=== PATIENT | female | born 2000 | race Caucasian/White ===

== ENCOUNTER 2024-04-27 12:17 | Emergency (ER) | payer MEDICAID, SELFPAY ==
[2024-04-27 12:26] VITALS: BP 130/75; PULSE 91; RESP 16; TEMP 36.3; O2SAT 99; BMI 25.0
--- NOTE | 2024-04-27 12:40 | ED_ITS ---
HPI - General Adult General Chief complaint: OB Stated complaint: 34 wks preg, fall abd pain Time Seen by Provider: 04/27/24 12:33 Source: patient Mode of arrival: ambulatory Limitations: no limitations History of Present Illness ED Provider: Kip Jane HPI narrative: 23-year-old female presents to ED for abdominal pain. Patient states 20 minutes ago she was trying to get into the car and she slipped and she fell onto her left hip left lower belly ever since has had pain. Patient denies any vaginal bleeding or vaginal discharge. Patient is usually [facility] at [facility]. Related Data Allergies Allergy/AdvReac Type Severity Reaction Status Date / Time shellfish derived Allergy Unknown THROAT Verified 04/27/24 12:28 [SHELLFISH DERIVED] CLOSES shell fish Allergy Unknown swelling Uncoded 03/29/16 00:00 of the face Review of Systems Review of Systems: Left lower abdominal hip pain Yes all other systems are reviewed and are negative PMFSH Social History Social History Advance Directives: No Advance Directives Information Provided: Yes Do you have a plan to hurt others: No Plan Physical Exam ED Vital Signs: Vital Signs - 24 hr 04/27/24 12:26 Temperature 97.3 F Pulse Rate 91 Respiratory Rate 16 Blood Pressure 130/75 Pulse Oximetry 99 Oxygen Delivery Method Room Air BMI result Body Mass Index 25.0 Const General: cooperative, healthy appearing, comfortable, no acute distress, well developed, alert and awake Orientation/consciousness: patient oriented x3 HENMT Head: Yes normal to inspection, Yes No palpable skull fracture present, Yes normocephalic and Yes atraumatic Eyes General: appearance normal, both eyes and all related structures Neck Neck: Yes normal visual inspection, Yes full ROM, Yes no lymphadenopathy, Yes no meningeal signs, Yes trachea midline, Yes supple, No anterior neck swelling and No tender Chest Chest palpation & inspection: normal inspection of the chest and normal palpation of entire chest wall Resp Effort & Inspection: normal respiratory effort and able to speak in complete sentences Auscultation: clear to auscultation bilaterally Cardio Jugular venous distension: no JVD Heart sounds: S1 normal heart sound present and S2 normal heart sound present GI Inspection: Yes normal to inspection Palpation (GI): Soft to palpation, not firm, Tenderness to palpation present (GI) in the LLQ and suprapubicly, no guarding and not rigid General: Yes no CVA tenderness Back/Spine/Pelvis Back: no CVA tenderness and No back tenderness Skin General skin exam: no rashes or lesions noted, elasticity normal and turgor normal Neuro General: patient oriented x3, gait normal, tone normal, moves all extremities, Normal light touch and pain sensation, no meningeal signs, no focal motor deficits, CN's II-XI intact bilaterally and normal sensation to monofilament Extrem General: Yes normal to inspection, Yes full ROM and Yes capillary refill normal Psych Appearance: grossly normal, well kempt and not disheveled Medical Decision Making Medical Decision Making MDM Narrative: It was discussed with patient that will have to call [facility] transfer Line to speak OBGYN be Y and provider so patient could be transferred at [facility] for evaluation of her and the fetus for monitoring. Patient agreeable with plan. Patient denies any vaginal bleeding. FHR 155 1:04pm: While I was about to call [facility] transfer line to transfer patient after speaking with Dr. Ariaza patient was seen walking out the ED toward the exit door. Patient was informed for her to remain so I can called [facility] and informed them of her case for transfer. patient states no, and she will leave on her own accord and go to [facility] by herself. Patient has left before any AMA paper could be filed. Patient was made aware of premature , , demise, and she still walked out the ED. Differential Diagnosis Differential Diagnoses: The differential diagnosis associated with the presentation includes (Threatened , demise, premature contraction) Admission/Observation Consideration of admission/observation: Escalation of care including admission/observation considered Consult Healthcare Provider Management of the patient was discussed with: Construction Skills Teacher (Dr. Araiza) Independent Historian Clinical information obtained from an independent historian. History obtained from or confirmed by: Other (Patient) Discharge Plan Discharge Clinical Impression: Abdominal pain, Fall Patient Disposition: Left W/O Completing Treatment Discharge Date/Time: 04/27/24 13:10
--- NOTE | 2024-04-27 13:07 | PC.NURSE ---
patient states she has waited too long and isn't waiting anymore. patient ambulates out with friend/family without completing treatment
--- NOTE | 2024-04-27 13:18 | PM.OBCN ---
OB Consult Note - [facility] Data Service Date: 04/27/24 Primary Care Provider: [facility] Narrative I was consulted on Lillian Jones at 1:00pm is a 23 year old female presents to ED for abdominal pain. Patient states 20 minutes ago she was trying to get into the car and she slipped and she fell onto her left hip left lower belly ever since has had pain. Patient denies any vaginal bleeding or vaginal discharge. OB PMF Social History Social History Advance Directives: No Advance Directives Information Provided: Yes Do you have a plan to hurt others: No Plan Meds Allergies Allergy/AdvReac Type Severity Reaction Status Date / Time shellfish derived Allergy Unknown THROAT Verified 04/27/24 12:28 [SHELLFISH DERIVED] CLOSES shell fish Allergy Unknown swelling Uncoded 03/29/16 00:00 of the face OB Physical Exam Physical Exam Additional Comments: Exam reported by by AYAAN Castaneda Abdominal exam within normal heart rate = 153 beats per minute OB - CN: A/P Assessment and Plan (1) Abdominal pain: Status: Acute Assessment and Plan: Recommended to AYAAN Ayers the following: Transfer BRANDI to [facility] for evaluation and for prolonged monitoring including FHR. I spent a total of 20 minutes reviewing the chart, communicating with the emergency room provider and documenting in the medical record. Time Spent With Patient Time: Total time managing care of this patient today ____ minutes.
--- OUTSIDE RECORDS SUMMARY | 2024-04-27 14:24 | XMS_ITS | Encounter Summary ---
Author Organization [employer] Address [address] 7[address] [place] [address] Care Team Providers Care Engineering Administrator Name Role Phone Unavailable Primary Care Provider Unavailabl e Encounter Details Date Type Department Care Team ([facility] st Contact Info) Description 03/30/2024 Patient Outreach [facility] MEDICINE [address] [place] [address] Dyan Mays, JOAO Social History Tobacco Use Types Packs/Day Years Used Date Smoking Tobacco: Never Smokeless Tobacco: Never Housing Stability Answer Date Recorded What is your housing situation today? I have breezy patterson 03/13/[address] you li ve. Do you have problems with any of the following? None of the above 03/13/2024 Food Insecurity Answer Date Recorded Within the past 12 months, y ou worried that your food would run out before you got money to buy more: Never True 03/13/2024 Within the past 12 months,th e food you bought just didn't last and you didn't have enough money to get more: Never True Transportation Answer Date Recorded In the past 12 months, has l ack of transportation kept you from medical appts, meetings, work or from getting things needed for daily living? No 03/13/2024 Utilities Answer Date Recorded In the past 12 months, has t he electric, gas, oil or water company threatened to shut off services in your home? No 03/13/2024 Internet Access Answer Date Recorded Internet Access Q1 Yes 03/13/2024 Internet Access Q2 Not on file 03/13/2024 Comments Yes Sex and Gender Information Value Date Recorded Sex Assigned at Female 02/20/2022 2:49 PM EST Legal Sex Female 2:48 PM EST Gender Identity Female 02/20/2022 2:49 PM EST Sexual Orientation Choose not to disclose 2022 6:47 PM EST documented as of this encounter Plan of Treatment Upcoming Encounters Date Type Department Care Team (Late st Contact Info) Description 05/20/2024 9:00 AM EST Office Visit [facility] MEDICINE [address] [place] [address] Meena White DO [address] [place], [place] [phone] documented as of this encounter Visit Diagnoses Not on filedocumented in this encounter Care Teams Engineering Administrator Relationship Specialty Start Date End Date Dyan Mays Telegraph Printer Mechanic 03/23/24 documented as of this encounter
--- OUTSIDE RECORDS SUMMARY | 2024-04-27 14:24 | XMS_ITS | Encounter Summary ---
Author Organization [employer] Address [address]t [place] [address] Care Team Providers Care Dock Supervisor Name Role Phone Unavailable Primary Care Provider Unavailabl e Reason for Visit * Reason Comments Care Coordination LETICIA/SOLE Finley- Follow up call Encounter Details Date Type Department Care Team (Latest Contact Info) Description 03/30/2024 Patient Outreach [facility] MEDICINE [address] [place] [address] Dyan Mays RN Care Coordination (LETICIA/SOLE Asencio- Follow up call) Social History Tobacco Use Types Packs/Day Years Used Date Smoking Tobacco: Never Smokeless Tobacco: Never Housing Stability Answer Date Recorded What is your housing situation today? I have breezy leonardo 03/13/[address] you li [...] PM EST documented as of this encounter Progress Notes * Susannoe George - 03/30/2024 11:31 AM EST CHW Marilee Vazquez, placed outbound call to patient for follow up call. Patient's name, and address confirmed. CHW followed up on SDOH needs. Per patient, no SDOH needs, however would like to assistance getting connected to [place], and [place] for [place], and SNAP benefits. CHW provided patient with [facility] contact number to schedule appt, as well as educated pt where to apply for DTA online as well as informed patient documents that will be requested at time of application. No further questions or concerns. CHW reinforced direct contact information for any additional questions or concerns and extended clinic hours on Mondays and Wednesdays, and Walk-In Urgent Care Located in [place] of [facility]. Patient provided with after-hours line for [facility], , which offer night time triage service and option to transfer to cash application representative provider if needed. Patient verbalizes understanding, and able to repeat back to editorial writer. A follow up call will be placed within 10 days, patient agrees with plan. documented in this encounter Plan of Treatment Upcoming Encounters Date Type Department Care Team (Late st Contact Info) Description 05/20/2024 9:00 AM EST Office Visit [facility] MEDICINE [address] [place], [place] [phone] Meena White DO [address] [place], [place] [phone] documented as of this encounter Visit Diagnoses Not on filedocumented in this encounter Care Teams Dock Supervisor Relationship Specialty Start Date End Date Dyan Mays Dog Show Judge 03/23/24 documented as of this encounter
--- OUTSIDE RECORDS SUMMARY | 2024-04-27 14:24 | XMS_ITS | Encounter Summary ---
Author Organization [employer] Address [address] 7t [place] [address] Care Team Providers Care Filling Station Laborer Name Role Phone Unavailable Primary Care Provider Unavailabl e Reason for Visit * Reason Onset Date Comments New patient appt. 03/31/2024 Encounter Details Date Type Department Care Team ([facility] st Contact Info) Description 03/31/2024 Telephone [facility] MEDICINE [address] [place] [address] Jose A Pritchard MD [address] [place] [address] New patient appt. Social History Tobacco Use Types Packs/Day Years [...] PM EST documented as of this encounter Miscellaneous Notes * Telephone Encounter - Melva Reddy - 03/31/2024 12:05 PM EST Outgoing call to pt to book TECHNOLOGY SPECIALIST appt. Patient booked for 05/20/[address] White. No medical conditions reported. Appt reminder sent via text and mail. documented in this encounter Plan of Treatment Upcoming Encounters Date Type Department Care Team (Late st Contact Info) Description 05/20/2024 9:00 AM EST Office Visit [facility] MEDICINE [address] [place] [address] Meena White DO [address] [place] [address] documented as of this encounter Visit Diagnoses Not on filedocumented in this encounter Care Teams Filling Station Laborer Relationship Specialty Start Date End Date Dyan Mays Hydrologic Engineer 03/23/24 documented as of this encounter
--- OUTSIDE RECORDS SUMMARY | 2024-04-27 14:24 | XMS_ITS | Encounter Summary ---
Author Organization [employer] Address [address] 7[address] [place] [address] Care Team Providers Care Inspector Hairspring Name Role Phone Unavailable Primary Care Provider Unavailabl e Encounter Details Date Type Department Care Team ([facility] st Contact Info) Description 03/30/2024 Telephone [facility] MEDICINE [address] [place] [address] Dyan Mays, JOAO Social History Tobacco Use Types Packs/Day Years Used Date Smoking Tobacco: Never Smokeless Tobacco: Never Housing Stability Answer Date Recorded What is your housing situation today? I have breezyemre patterson 03/13/[address] you [...] encounter Miscellaneous Notes * Telephone Encounter - Dyan Mays - 03/30/2024 11:26 AM EST NANCY Mays RN placed outbound call to patient. Patient's name, and address confirmed.Patient states is doing well with no recent illnesses or emergency room visits. Patient is currently 30 weeks gestation and is doing well. Her last OB appointment went well and baby is good and her GTT was within normal limits. CM educated patient that she qualifies for breastpump through [employer] and that she needs to request the prescription at her next OB appointment on 04/08/24, patient agrees with plan. CM educated patient on emissions technician services covered by [employer]. Patient states that she is interested in possibly speaking to a emissions technician to see if she would like to use on for labor. CM emailed emissions technician information to her email [email or web address] patient states that she does not have any supplies for baby and that includes a car seat and a crib, CHW Marilee Vazquez spoke with patient regarding resources. Patient does not have WIC and Marilee provided the phone number and she is going to call today. No further questions or concerns. CM reinforced direct contact information or CHW for any additional questions or concerns. Education provided on Walk-In Urgent Care located in [facility] of [facility]. Patient provided with after-hours line for [facility], , which offer night time triage service and option to transfer to moving consultant provider if needed. Patient verbalizes understanding, and able to repeat back to board writer. A follow up call will be placed within 10 days, patientagrees with plan. documented in this encounter Plan of Treatment Upcoming Encounters Date Type Department Care Team (Late st Contact Info) Description 05/20/2024 9:00 AM EST Office Visit [facility] MEDICINE [address] [place] [address] Meena White, [address] [place] [address] documented as of this encounter Visit Diagnoses Not on filedocumented in this encounter Care Teams Inspector Hairspring Relationship Specialty Start Date End Date Dyan Mays Lyric Writer 03/23/24 documented as of this encounter
--- OUTSIDE RECORDS SUMMARY | 2024-04-27 14:24 | XMS_ITS | Clinical Summary ---
Author Organization [employer] Address [address] 7t [place] [address] Care Team Providers Care Solution Strategist Name Role Phone Unavailable Primary Care Provider Unavailabl e Allergies Active Allergy Reactions Criticality Noted Date Comments Shellfish-Derived Products Anaphylaxis High 04/26/2022 Pt does not have an epi pen at moment. Medications multivitamin () 27-0.8 MG tablet Take 1 tablet by mouth Once per day. 90 tablet 3 10/14/2023 Active Encounters Date Type Department Care Team Description 04/15/2024 Patient Outreach [facility] MEDICINE [address] [place] [phone] Dyan Mays, JOAO Care Coordination ([facility]/SOLE Asencio#1- Follow up call-[facility]) 03/31/[address] [address] Jose A Pritchard MD New patient appt. 03/30/2024 Patient Outreach [facility] MEDICINE [address] [place] [phone] Dyan Mays RN 03/30/2024 Patient Outreach [address] [address] Dyan Mays, JOAO Care Coordination (Nelly/SOLE Asencio- Follow up call) 03/30/[address] [address] Dyan Mays, JOAO 03/23/[address] [address] Dyan Mays, JOAO Care Management (C3 initial assessment/enrollment) 03/20/2024 Patient Outreach [address] [address] Dyan Mays RN Care Coordination (C3/SOLE Asencio- CM Initial Assessment Appt Reminder) 03/16/[address] [address] Jose A Pritchard MD 03/13/2024 Patient Outreach [address] [address] Dyan Mays RN Care Coordination (Nelly/SOLE Asencio- ADT- Outreach call) 03/13/[address] [address] Dyan Mays RN Care Management ([facility] chart review) from Last 3 Months Social History Tobacco Use Types Packs/Day Years Used Date Smoking Tobacco: Never Smokeless Tobacco: Never Tobacco Cessation:Counseling Given: Not Answered Housing Stability Answer Date Recorded What is [...] not to disclose 2022 6:47 PM EST Last Filed Vital Signs Vital Sign Reading Time Taken Comments Blood Pressure 123/77 10/14/2023 2:56 PM EDT Pulse 67 10/14/2023 2:56 PM EDT Temperature 36.7 ??C (98.1 ??F) 10/14/2023 2:56 PM ED T Respiratory Rate 17 10/14/2023 2:56 PM EDT Oxygen Saturation 100% 10/14/2023 2:56 PM EDT Inhaled Oxygen Concentration - - Weight 64.7 kg (142 lb 9.6 oz) 10/14/2023 2:56 P M EDT Height - - Body Mass Index - - Plan of Treatment Upcoming Encounters Date Type Department Care Team (Late st Contact Info) Description 05/20/2024 9:00 AM EST Office Visit [facility] MEDICINE [address] [place], [place] [phone] Meena White, DO [address] [place], [place] [phone] Health Maintenance Due Date Last Done Comments Depression Screening 1998 HIV Screening 1998 Hepatitis B Vaccines (2 of 3 - 3-dose series) 1998 1998 Alcohol/Substance Use Screening 2010 Family Planning (PISQ) 2013 HPV Vaccines (1 - 3-dose series) 2013 Hepatitis C Screening 2016 DTaP/Tdap/Td Vaccines (1 - Tdap) 2017 Pap Smear 06/03/2019 COVID-19 Vaccine ( - 2023-2 5 season) 2023 Influenza Vaccine (#1) 2023 Tobacco Screening 10/13/2024 10/14/2023 SDOH Screening 03/13/2025 03/13/2024 Zoster Vaccines (1 of 2) 2048 RSV Patients and Pa tients Aged 60 years or older (1 - 1-dose 75+ series) 2073 HIB Vaccines Aged Out No longer eligi ble based on patient's age to complete this topic Hepatitis A Vaccines Aged Out No long er eligible based on patient's age to complete this topic IPV Vaccines Aged Out No longer eligi ble based on patient's age to complete this topic Meningococcal Vaccine Aged Out No luis eduardo reji eligible based on patient's age to complete this topic Pneumococcal Vaccine: Pediat rics (0 to 5 Years) and At-Risk Patients (6 to 49) Years) Aged Out No longer elig ible based on patient's age to complete this topic RSV under 20 months Aged Out No longe r eligible based on patient's age to complete this topic Rotavirus Vaccines Aged Out No longer eligible based on patient's age to complete this topic [facility] Subscriber Plan / Payer (Ef fective 2022-Present) Name:Lillian Jones Relation to Subscriber:Self Name:Lillian Jones Payer ID:Not on file Group ID:Not on file Type:Medicaid Address: [address] [facility] Member Subscriber Plan / Payer (Ef fective 2023-Present) Name:Lillian Jones Relation to Subscriber:Self Name:Lillian Jones Payer ID:Not on file Group ID:Not on file Type:Medicaid Address: [address] Care Teams Solution Strategist Relationship Specialty Start Date End Date Dyan Mays Smelter Charger 03/23/24
--- OUTSIDE RECORDS SUMMARY | 2024-04-27 14:24 | XMS_ITS | Encounter Summary ---
Author Organization [employer] Address [address] 7t [place] [address] Care Team Providers Care Demurrage Worker Name Role Phone Unavailable Primary Care Provider Unavailabl e Reason for Visit * Reason Comments Care Coordination C3CM/SOLE Finley#1- Follow up call-LVM Encounter Details Date Type Department Care Team (Latest Contact Info) Description 04/15/2024 Patient Outreach [facility] MEDICINE [address] [place] [address] Dyan Mays RN Care Coordination (C3CM/SOLE Asencio#1- Follow up call-LVM) Social History Tobacco Use Types Packs/Day Years [...] as of this encounter Progress Notes * Marilee Vazquez - 04/15/2024 10:22 AM EST CHW Marilee Vazquez, placed outbound call to patient for follow up call. No answer at this time. LVM introducing self from [facility] CM Department. Requested call back. CHW reinforced direct contact information or for any additional questions or concernsand extended clinic hours on Mondays and Wednesdays, and Walk-In Urgent Care Located in [facility] of [facility]. Patient provided with after-hours line for [facility], , which offer night time triage service and option to transfer to colorectal surgeon provider if needed. CHW will attempt another follow up call within 10 days. documented in this encounter Plan of Treatment Upcoming Encounters Date Type Department Care Team (Late st Contact Info) Description 05/20/2024 9:00 AM EST Office Visit [facility] MEDICINE [address] [place], [place] [phone] Meena White DO [address] [place], [place] [phone] documented as of this encounter Visit Diagnoses Not on filedocumented in this encounter Care Teams Demurrage Worker Relationship Specialty Start Date End Date Dyan Mays Chief Psychologist 03/23/24 documented as of this encounter
--- OUTSIDE RECORDS SUMMARY | 2024-04-27 14:25 | XMS_ITS | Encounter Summary ---
Author Organization [facility] Address [address] [place] [address] Care Team Providers Care Chauffeur Airport Limousine Name Role Phone Physician, No Pcp Primary Care Provider Unavaila ble Encounter Details Date Type Department Care Team (Late Contact Info) Description 04/14/2024 Telephone Obstetrics and Gynecology - [address] [phone] Margaux Lee MA Social History Tobacco Use Types Packs/Day Years Used Date Smoking Tobacco: Never Smokeless Tobacco: Never Alcohol Use Standard Drinks/Week Comments Not Currently 0 (1 standard drink = 0.6 oz pur e alcohol) Estimated Date of Delivery Comme nts Yes 06/04/2024 Based on Ultraso und Sex and Gender Information Value Date Recorded Sex Assigned at Not on file Gender Identity Not on file Sexual Orientation Not on file Job Start Date Occupation Industry Not on file Not on file Not on file documented as of this encounter Progress Notes * Margaux Lee MA - 04/14/2024 11:02 AM EST FMLA form completed and place on Clint Martinez CNM in basket for signature. Margaux Lee MA documented in this encounter Plan of Treatment Upcoming Encounters Date Type Department Care Team (Late Contact Info) Description 05/01/2024 2:45 PM EST Routine Obstetrics and Gynecology - [address] [phone] Radhika Oliva CNM [address] [place] [address] 05/06/2024 3:15 PM EST Routine Obstetrics and Gynecology - [place] [address] [place] [phone] Donte Morris CNM [address] [place] [address] documented as of this encounter Visit Diagnoses Not on filedocumented in this encounter Care Teams Chauffeur Airport Limousine Relationship Specialty Start Date End Date Physician, No Pcp PCP - General 02/26/24 documented as of this encounter
--- OUTSIDE RECORDS SUMMARY | 2024-04-27 14:25 | XMS_ITS | Data Portability ---
Author Organization AYAAN Gray s, [address] Address [address] [place] [address] Assessment No assessment recorded. Plan of Treatment Reminders Order Date Submit Date Provider Last Modified By Organization Details Last Modified Time Details Appointments None recorded. Lab herpes simplex, culture, unspecified specimen 2022 023 [employer] [facility], [address] [place] [address], [address], 3 14:06:32 urinalysis, dipstick 2022 023 [email or web address] 20995[facility], [address] [place] [address], [id number], 3 12:21:59 test, urine 20[id number] [place] [address], [address] [place] [address], [id number], 3 12:21:59 culture, urine 2022 023 DEDRICK [facility]), [address] [place] [address], [address], 3 06:07:30 vaginal pathogens panel, CARLIE+probe, vaginal fluid 2022 023 [employer] [facility]), [address] [place] [address], [address], 3 06:07:29 Referral None recorded. Procedures None recorded. Surgeries None recorded. Imaging None recorded. Medication Orders Valtrex 1 gram tablet 2022 023 [facility] #[id number], [address] [place], [address], 12:22:01 Macrobid 100 mg capsule 2022 023 [facility] #[id number], [address] [place], [address], 12:22:01 Patient TargetsNo targets recorded. Patient Instructions Encounter Date Encounter Id Patient Instructions Last Modified By Organization Details Last Modified Time 07/22/2022 [id number] We recommend you get a repeat urinalysis in 2 weeks to ensure that any abnormalities have resolved. If urine abnormalities persist, you will likely need further testing or treatment. We will contact you within 3 to 5 days with the results of your lab test. If you have not heard back from us within that time frame, please feel free to contact our office regarding your results. Go to the Emergency Department immediately if your symptoms worsen or if you develop new symptoms that concern you. Drink plenty of fluids You should follow-up with your PCP in 4-5 days, or at any time if your condition does not improve or worsens. Any acute change should prompt a visit to the nearest Emergency Department. Not available 07/22/2022 12:22:41 What is herpes?Herpes is a disease that can cause blisters and open sores on the genital area. Herpes is caused by a virus that is passed from person to person during vaginal, oral, or anal sex. Sometimes, people do not know they have herpes because they do not have any symptoms.?? Herpes cannot be cured. But the disease usually causes most problems during the first few years. After that, the virus is still there, but it causes few to no symptoms. Even when the virus is active, people with herpes can take medicines to reduce and help prevent symptoms.?? What are the symptoms of herpes?Some people with herpes never have any symptoms. But other people can develop symptoms within a few weeks of being infected with the herpes virus.?? Symptoms usually include blisters in the genital area. In women, this area includes the vagina, butt, anus, or thighs. In men, this area includes the penis, scrotum, anus, butt, or thighs. The blisters can become painful open sores which then crust over as they heal.?? Sometimes, people can have other symptoms that include:?? ? Blisters on the mouth or lips?? ? Fever, headache, or pain in the joints?? ? Trouble urinating?? In people with herpes, symptoms usually go away and come back. A return of symptoms is called an outbreak. Outbreaks usually include blisters and open sores in the genital area. In most people, the first outbreak is the worst and can last as long as 2 to 3 weeks. Outbreaks that happen later are usually not as severe and do not last as long.?? Outbreaks might occur every month or more often, or just once or twice a year. Sometimes, people can tell when an outbreak will occur, because they feel itching or pain beforehand. Sometimes they do not know that an outbreak is coming because they have no symptoms. Whatever your pattern is, keep in mind that herpes outbreaks usually become less frequent over time as you get older.?? Certain things, called triggers, can make outbreaks more likely to occur. These include stress, sunlight, menstrual periods, or getting sick.?? Not available 07/22/2022 12:22:28 Reason for Referral None Reported. Results Created Date Observation Date Name Description Value Unit Range Abnormal Flag Note LastModifiedBy Organization Detail LastModifiedTime 07/23/1907/23/2022 NUA B VAGIN ITIS PLUS (VG+) atopobium vaginae HIGH - 2 score abnormal Not Available [facility] ([facility]) [address] [place], [address], 07/24/2022 06:07:29 07/23/1907/23/2022 NUSWA B VAGIN ITIS PLUS (VG+) bvab 2 HIGH - 2 score abnormal Not Available [facility] ([facility]) [address], [place], [place], [address], 07/24/2022 06:07:29 07/23/1907/23/2022 NUSWA B VAGIN ITIS PLUS (VG+) megasphaera 1 HIGH - 2 score abnormal Calcu late total score by patrick novak the 3 indiv idual bacte rial vagin osis (BV) marke r score s toget her. Total score is inter prete d as follo ws: Total score 0-1: Indic ates the absen ce of BV. Total score 2: Indet ermin ate for BV. Addit ional clini ingris data shoul d be evalu ated to estab jazzmine a diagn osis. Total score 3-6: Indic ates the prese nce of BV. This test was devel oped and its perfo rmanc e sandee cteri stics deter mined by [facility]. It has not been clear ed or appro katie by the Food and Drug Admin istra tion. Not Available [facility] ([facility]) [address] [place], [address], 07/24/2022 06:07:29 07/23/19 23 07/23/2022 NUSWA B VAGIN ITIS PLUS (VG+) attila albicans, CARLIE NEGATI VE negati ve Not Available [facility] ([facility]) [address] [place], [address], 07/24/2022 06:07:29 07/23/19 23 07/23/2022 NUSWA B VAGIN ITIS PLUS (VG+) attila glabrata, CARLIE NEGATI VE negati ve Not Available [facility] ([facility]) [address] [place], [address], 07/24/2022 06:07:29 07/23/19 23 07/24/2022 NUSWA B VAGIN ITIS PLUS (VG+) trich vag by CARLIE NEGATI VE negati ve Not Available [facility] ([facility]) [address] [place], [address], 07/24/2022 06:07:29 07/23/19 23 07/24/2022 NUSWA B VAGIN ITIS PLUS (VG+) chlamydia trachomatis, CARLIE NEGATI VE negati ve Not Available [facility] ([facility]) [address], [place], [place], [address], 07/24/2022 06:07:29 07/23/19 23 07/24/2022 NUSWA B VAGIN ITIS PLUS (VG+) neisseria gonorrhoeae, CARLIE NEGATI VE negati ve Not Available [facility] ([facility]) [address], [place], [place], [address], 07/24/2022 06:07:29 07/23/19 23 07/24/2022 URINE CULTU RE, ROUTI NE urine culture, routine FINAL REPORT Not Available [facility] ([facility]) [address], [place], [place], [address], 07/24/2022 06:07:30 07/23/19 23 07/24/2022 URINE CULTU RE, ROUTI NE result 1 NO GROWTH Not Available [facility] ([facility]) [address], [place], [place], [address], 07/24/2022 06:07:30 07/23/19 23 07/25/2022 HSV CULTU RE AND TYPIN G hsv culture/type COMMEN T abnormal Posit fátima for Herpe s simpl ex virus type- 2. Typin g was confi rmed by monoc lonal antib elsiha micro scopi c immun ofluo resce nce. Not Available [facility] ([facility]) [address], [place], [place], [address], 07/25/2022 14:06:32 07/23/19 23 07/22/2022 pregn analilia test, urine Unknown Analyte Normal = Negati ve Not Available chano [address], [address], 07/22/2022 11:48:35 07/23/19 23 07/22/2022 pregn analilia test, urine Unknown Analyte negati ve Not Available chico pe [address], [place], [address], 07/22/2022 11:48:35 07/23/19 23 07/22/2022 urina lysis , dipst ick Unknown Analyte Normal = light yellow Not Available [address]chano hale [address], [place], [address], 07/22/2022 11:48:29 07/23/19 23 07/22/2022 urina lysis , dipst ick Unknown Analyte Yellow Not Available [address] [place], [place] [address]abram [address], [place], [address], 07/22/2022 11:48:29 07/23/19 23 07/22/2022 urina lysis , dipst ick Unknown Analyte Normal = clear Not Available chano hale [address], [place], [address], 07/22/2022 11:48:29 07/23/19 23 07/22/2022 urina lysis , dipst ick Unknown Analyte Slight ly Cloudy Not Available [address]chan[address] hale [address], [place], [address], 07/22/2022 11:48:29 07/23/19 23 07/22/2022 urina lysis , dipst ick Unknown Analyte Normal = negati ve Not Available chano hale [address], [place], [address], 07/22/2022 11:48:29 07/23/19 23 07/22/2022 urina lysis , dipst ick Unknown Analyte Normal = Negati ve Not Available [address]chan[address] h[address], [place], [address], 07/22/2022 11:48:29 07/23/19 23 07/22/2022 urina lysis , dipst ick Unknown Analyte Normal = Negati ve Not Available chano hale [address], [place], [address], 07/22/2022 11:48:29 07/23/19 23 07/22/2022 urina lysis , dipst ick Unknown Analyte Negati ve Not Available chano hale [address], [place], [address], 07/22/2022 11:48:29 07/23/19 23 07/22/2022 urina lysis , dipst ick Unknown Analyte Negati ve Not Available chano hale [address], [place], [address], 07/22/2022 11:48:29 07/23/19 23 07/22/2022 urina lysis , dipst ick Unknown Analyte Negati ve Not Available chano hale [address], [place], [address], 07/22/2022 11:48:29 07/23/1907/22/2022 urina lysis , dipst ick Unknown Analyte Normal = 1.010, 1.015, 1.020 Not Available chano hlae [address], [place], [address], 07/22/2022 11:48:29 07/23/19 23 07/22/2022 urina lysis , dipst ick Unknown Analyte 1.025 Not Available [address], [place], [address], 07/22/2022 11:48:29 07/23/19 23 07/22/2022 urina lysis , dipst ick Unknown Analyte Normal = Negati ve Not Available chano hale [address], [place], [address], 07/22/2022 11:48:29 07/23/19 23 07/22/2022 urina lysis , dipst ick Unknown Analyte Small Not Available mary [address], [place], [address], 07/22/2022 11:48:29 07/23/19 23 07/22/2022 urina lysis , dipst ick Unknown Analyte Normal = 6.5, 7.0, 7.5, 8.0 Not Available chano [address], [place], [address], 07/22/2022 11:48:29 07/23/1907/22/2022 urina lysis , dipst ick Unknown Analyte 6.0 Not Available [address], [place], [address], 07/22/2022 11:48:29 07/23/19 23 07/22/2022 urina lysis , dipst ick Unknown Analyte Normal = Negati ve Not Available chano [address], [place], [address], 07/22/2022 11:48:29 07/23/19 23 07/22/2022 urina lysis , dipst ick Unknown Analyte Negati ve Not Available chano [address], [place], [address], 07/22/2022 11:48:29 07/23/19 23 07/22/2022 urina lysis , dipst ick Unknown Analyte Normal = 0.2, 1.0 Not Available chano [address], [place], [address], 07/22/2022 11:48:29 07/23/19 23 07/22/2022 urina lysis , dipst ick Unknown Analyte 0.2 E.U./d L Not Available chano hale [address], [place], [address], 07/22/2022 11:48:29 07/23/19 23 07/22/2022 urina lysis , dipst ick Unknown Analyte Normal = Negati ve Not Available 2099chano hale [address], [place], [address], 07/22/2022 11:48:29 07/23/19 23 07/22/2022 urina lysis , dipst ick Unknown Analyte Negati ve Not Available [address]chano [address], [place], [address], 07/22/2022 11:48:29 07/23/19 23 07/22/2022 urina lysis , dipst ick Unknown Analyte Normal = Negati ve Not Available [address] [place] [address], [place], [address], 07/22/2022 11:48:29 07/23/19 23 07/22/2022 urina lysis , dipst ick Unknown Analyte Small Not Available [address] [place] [address], [place], [address], 07/22/2022 11:48:29 Result Notes None recorded. Problems Name Problem SNOMED Code Status Onset Date Resolution Date Notes Provider Name and Address Organization Details Recorded Time Heart murmur 25197047 Active 023 AYAAN Holbrook - [facility] 07/22/2022 11:50:21 Problem Notes None recorded. Medical Equipment None Reported. Allergies No known drug allergies Medications Name Sig Start Date Stop Date Status Note LastModified by Organization Details LastModified Time metronidazol e 0.75 % (37.5 mg/5 gram) vaginal gel Insert 1 applicatorf ul every day by vaginal route for 5 days. 2022 active Not Available Not Available Not Avai lable Macrobid 100 mg capsule Take 1 capsule every 12 hours by oral route with meals for 7 days. 2022 active Not Available Not Available Not Avai lable Valtrex 1 gram tablet Take 1 tablet every 8 hours by oral route with meals for 7 days. 2022 active Not Available Not Available Not Avai lable Vitals Date Recorded Body height Pain severity - 0-10 verbal numeric rating [Score] - Reported Oxygen saturation Oxygen saturation in Arterial blood by Pulse oximetry Respiratory rate Heart rate Body temperature Systolic blood pressure Diastolic blood pressure Provider Name and Address Organization Details Last Updated DateTime 3 167.64 cm 2 100 % 100 % 19 /min 88 /min 98.5 [degF] 113 mm[Hg] 76 mm[Hg] DANIEL KUO [facility] 3 11:51:55 Social History Question Answer Notes LastModified by Organizat ion Details LastModified Time Tobacco Smoking Status Never Smoker DANIEL barraza PA [facility] 07/22/2022 11:50:34 What Is Your Level Of Alcohol Consumption? Occasional [email or web address] Information not available 07/22/2022 Do You Use Any Illicit Or Recreational Drugs? No [email or web address] Information not available 07/22/2022 Have You Recently Traveled Abroad? Yes DR- 06/20-07/10 [email or web address] Information not available 07/22/2022 Do You Or Have You Ever Used Any Other Forms Of Tobacco Or Nicotine? No [email or web address] Information not available 07/22/2022 Sex: Unknown Functional Status None recorded. Mental Status None recorded. Family History Relationship Description Onset Age of this Age Resolved Age Notes LastModified by Organization Details LastModified Time Father No current problems or disability [email or web address] Not available 07/22 11:50:23 Mother No current problems or disability [email or web address] Not available 07/22 11:50:23 Medical History No medical history recorded. Gynecological HistoryNo gynecological history recorded. Obstetrics History GPAL:G 0 P 0 0 0 0 Past Encounters Encounter ID Performer Location Encounter Start Date Encounter Closed Date Diagnosis/Indication Diagnosis SNOMED-CT Code Diagnosis ICD10 Code Diagnosis Note [id number] [address] [address] 09/19/2021 14:15:21 09/19/2021 15:57:43 [id number] [address] [place] [address] 05/04/2020 16:05:56 05/04/2020 16:18:14 [id number] Brandon Alberto [facility] [address] [facility] [address] [place] [address] 07/22/2022 11:39:36 07/22/2022 12:24:09 Acute urinary tract infection 466546526 N39.0 Genital he rpes simplex 05517256 A60.9 Acute vaginitis 34577242 N76.0 Health Concerns Section Related Observation LastModified by Organization Detai ls LastModified Time None Recorded Concern Status LastModified by Organization Details LastModified Time None Recorded Advance Directives Directive None Recorded Payers Encounter Date Sequence Insurance Name Policy Number Policy Card Covered Member ID Card Member ID Guarantor Name 07/22/2022 1 [place]: [facility] [id number] [facility] Notes Date Note Type Note Provider Name and Address Organization Details Recorded Time 3 text/html Urinary Complaint FemaleReported bypatient.source of patient informationInformation obtained from patient; Patient arrived at Urgent Care ambulatory UTI Symptoms:no blood in the urine; no urgency; no pain in the flank; no fever/chills; no incontinence; no recurrent UTI; no known exposure to STD;pain during urination;urinary frequency;vaginal discharge Severity:mild Duration:2 days Modifying Factors:nothing gives reliefNotes:frequency and urgency x 2 day. denies any fever or fever with chills, denies any History of renal stone or bladder issues. frequency and urgency x 2 day. denies any fever or fever with chills, denies any History of renal stone or bladder issues. Brandon Alberto NP [address] [place], [address], [place] - [facility] 07/29/2022 18:52:30 OBGyn Episode No OBEpisode recorded.
--- OUTSIDE RECORDS SUMMARY | 2024-04-27 14:25 | XMS_ITS | Encounter Summary ---
Author Organization [facility] Address [address] [place] [address] Care Team Providers Care Drop Count Associate Name Role Phone Physician, No Pcp Primary Care Provider Unavaila ble Reason for Visit * Reason Onset Date Comments Fall 04/27/2024 Encounter Details Date Type Department Care Team ([facility] st Contact Info) Description 04/27/2024 Telephone Obstetrics and Gynecology - [address] [address] Radhika Oliva, [address] [id number] Fall Social History Tobacco Use Types Packs/Day Years [...] as of this encounter Progress Notes * Wendie Stark RN - 04/27/2024 1:36 PM EST Spoke with pt- c/o that she fell and hit her abdomen. States she does have discomfort. Denies bleeding,LOF or cramping. +FM. Advised she needs to go to the ER to be evaluated-either [facility] or [facility] as the baby needs to be monitored for a few hours. Pt agrees and will go to ER. Pt has f/u this week with [facility]. * Regla Whitaker - 04/27/2024 1:21 PM EST Pt is 34 weeks - fell outside getting in the car and hit her side bad - she went to [facility] but they do not have ob services and they were going to transfer her to [facility] but she did not want to wait at hospital for behavioral medicine so she left - states she has a lot abdominal pain - please call to advise documented in this encounter Plan of Treatment Upcoming Encounters Date Type Department Care Team (Late st Contact Info) Description 05/01/2024 2:45 PM EST Routine Obstetrics and Gynecology - [address] [address] Radhika Oliva, [address] [place] [address] 05/06/2024 3:15 PM EST Routine Obstetrics and Gynecology - [place] [address] [place] [address] Donte Morris, [facility] [address] [place] [address] documented as of this encounter Visit Diagnoses Not on filedocumented in this encounter Care Teams Drop Count Associate Relationship Specialty Start Date End Date Physician, No Pcp PCP - General 02/26/24 documented as of this encounter
--- OUTSIDE RECORDS SUMMARY | 2024-04-27 14:25 | XMS_ITS | Encounter Summary ---
Author Organization [facility] Address [address] [place] [address] Care Team Providers Care Collector Of Port Name Role Phone Physician, No Pcp Primary Care Provider Unavaila ble Reason for Visit * Reason Onset Date Comments Forms/questionnaires 04/13/2024 Encounter Details Date Type Department Care Team ([facility] Contact Info) Description 04/13/2024 Telephone Obstetrics and Gynecology - [place] [address] [place] [phone] Clint Martinez CNM [address] [place] [address] Forms/questionnaires Social History Tobacco Use Types Packs/Day Years [...] Progress Notes * Margaux Lee MA - 04/16/2024 1:52 PM EST [facility] form completed and signed by Clint Martinez CNM, copy will be scanned and patient will pick up worker. * Regla Whitaker - 04/13/2024 2:48 PM EST FORMS TO BE COMPLETED IN THE PRACTICE: Type of form: [facility] Release of information form ( all sections) has been completed and Signed. Yes For what medical problem does the patient need this form completed? FMLA FOR MATERNITY LEAVE Is patients name on the form? Yes Is the patients portion (demographics) of the form completed? Yes Did the patient sign the form? No Which provider is form to be completed by? Clint Martinez CNM Patient requesting the form be: ? PT CHEKCED OFF FAX AND MAIL BUT DID NOT LEAVE A FAX OR ADDRESS TOSEND TO ? If form is not to be picked up by patient has patient been informed that RELEASE OF INFO form must be signed by them for alternate person to pick up worker form? Yes Patient has been informed that completion will be in 7-10 business days: Yes documented in this encounter Plan of Treatment Upcoming Encounters Date Type Department Care Team (Late st Contact Info) Description 05/01/2024 2:45 PM EST Routine Obstetrics and Gynecology - [address] [address] Radhika Oliva [address] [address] 05/06/2024 3:15 PM EST Routine Obstetrics and Gynecology - [address] [address] Donte Morris CNM [address] [place] [address] documented as of this encounter Visit Diagnoses Not on filedocumented in this encounter Care Teams Collector Of Port Relationship Specialty Start Date End Date Physician, No Pcp PCP - General 02/26/24 documented as of this encounter
--- OUTSIDE RECORDS SUMMARY | 2024-04-27 14:25 | XMS_ITS | Encounter Summary ---
Author Organization [facility] Address [address] [place] [address] Care Team Providers Care Order Caller Name Role Phone Physician, No Pcp Primary Care Provider Unavaila ble Reason for Visit * Reason Comments Routine Visit Encounter Details Date Type Department Care Team (Latest Contact Info) Description 04/13/2024 2:15 PM EST Routine Obstetrics and Gynecology - [address] [phone] Clint Martinez CNM [address] [place] [phone] Encounter for supervision of normal first in third trimester (Primary Dx); 32 weeks gestation of Social History Tobacco Use Types Packs/Day Years [...] on file documented as of this encounter Last Filed Vital Signs Vital Sign Reading Time Taken Comments Blood Pressure 116/69 04/13/2024 2:19 PM EST Pulse 96 04/13/2024 2:19 PM EST Temperature - - Respiratory Rate 14 04/13/2024 2:19 PM EST Oxygen Saturation - - Inhaled Oxygen Concentration - - Weight 70.8 kg (156 lb) 04/13/2024 2:19 PM EST Height - - Body Mass Index 25.18 03/12/2024 9:27 AM EST documented in this encounter Progress Notes * Clint Martinez CNM - 04/13/2024 2:15 PM EST OB Visit: Vitals BP: 116/69 Weight: 70.8 kg (156 lb) Assessment Heart Rate: 155 Fundal Height (cm): 32 cm Movement: Present 23 y.o. old female at 32w4d. Doing well. Appropriate FM. No LOF/VB/cramping. Her only new concern is none feeling well very active FM, she declines the flu and the Tdap vaccines. Otherwise healthy . Her BP is reviewed and is Normal. Signs and symptoms of labor reviewed including reasons to call triage. The patient does not require anesthesia consult. Problem List reviewed and updated. RTO 2 weeks or PRN 1. Encounter for supervision of normal first in third trimester 2. 32 weeks gestation of Clint Martinez CNM on 04/13/2024 at 2:40 PM EST documented in this encounter Plan of Treatment Upcoming Encounters Date Type Department Care Team (Late st Contact Info) Description 05/01/2024 2:45 PM EST Routine Obstetrics and Gynecology - [place] [address] [place] [address] Radhika Oliva CNM [address] [place] [address] 05/06/2024 3:15 PM EST Routine Obstetrics and Gynecology - [place] [address] [place] [address] Donte Morris CNM [address] [place] [address] documented as of this encounter Visit Diagnoses Diagnosis Encounter for supervision of normal first in third trimester- Primary 32 weeks gestation of documented in this encounter Care Teams Order Caller Relationship Specialty Start Date End Date Physician, No Pcp PCP - General 02/26/24 documented as of this encounter
--- OUTSIDE RECORDS SUMMARY | 2024-04-27 14:25 | XMS_ITS | Clinical Summary ---
Author Organization [facility] [address] [facility] Address [address] [place] [address] Phone Care Team Providers Care Applications System Analyst Name Role Phone Physician, No Pcp Primary Care Provider Unavaila ble Allergies Active Allergy Reactions Criticality Noted Date Comments Shellfish Containing Products Anaphylaxis High 04/26/2022 Pt does not have an epi pen at moment. Medications Medication Sig Dispensed Refills Start Date End Date Status metoclopramide (REGLAN) 10 mg tablet Take 1 Tablet by mouth 4 times daily. 12/03/2023 Active metroNIDAZOLE (METROGEL) 0.75 % (37.5mg/5 gram) vaginal gel 1 applicator full qhs x 5nights 12/04/2023 Active sodium chloride 0.9 % injection Inject 1,000 mL into the vein every hour. 12/03/2023 Active PNV no.164/iron/folate no.6 ( PNV ORAL) Take 1 Tablet by mouth. Active ondansetron ODT (ZOFRAN-ODT) 8 mg disintegrating tablet TAKE 1 TABLET (8 MG) BY MOUTH EVERY 8 HOURS NEEDED FOR NAUSEA AND VOMITING FOR UP TO 7 DAYS 10/14/2023 Active Vitamin 27 mg iron- 0.8 mg per tablet Take 1 tablet by mouth 1 (one) time each day. 10/14/2023 Active metoclopramide HCl 5 mg/mL syringe Infuse 10 mg into a venous catheter. 12/03/2023 Active Active Problems Problem Noted Date Diagnosed Date Positive GBS test 03/20/2024 Overview (03/20/2024): At 29wks flc Vaginal bleeding in 03/12/2024 Insufficient care in second trimester 1 05/11/2023 Overview (03/10/2024): Has not been seen for 10wks 02/14/2024 Overview (02/14/2024): 1. [facility] site: [address] 2. Delivery site: [facility] 3. Mobile Mommas: 4. Dating criteria: LMP confirmed by 1st trimester ultrasound 5. Blood type: Lab Results Component Value Date BLDTYPE O POSITIVE 11/22/2023 6. Genetic screening: Panorama low risk, Horizon- Negative ; 12/26/2023 AFP negative 6. GBS: Date: 7. FOB name: Jose 8. Plans A. Epidural or other pain management - B. Labor support identified - Maureen C. Tdap - Date:, Flu - Date: D. Breast or Bottle feed: Breast E. Baby's name - F. Circumcision - na 9. Hospital Course: Cervical high risk HPV (human papillomavirus) te st positive 12/16/2023 Overview (02/14/2024): Ip, nl pap, +hpv repeat routinely Heart murmur 07/22/2022 Estimated Date of Delivery Comme nts Yes 06/04/2024 Based on Ultraso und Encounters Date Type Department Care Team Description 04/27/2024 Telephone Obstetrics and Gynecology - [address] [phone] Radhika Oliva CNM Fall 04/20/2024 Telephone Obstetrics and Gynecology - [address] [phone] Margaux Lee MA 04/14/2024 Telephone Obstetrics and Gynecology - [address] [phone] Margaux Lee MA 04/13/2024 2:15 PM EST Routine Obstetrics and Gynecology - [address] [phone] Clint Martinez CNM Encounter for supervision of normal first in third trimester (Primary Dx); 32 weeks gestation of 04/13/2024 Telephone Obstetrics and Gynecology - [address] [phone] Clint Martinez CNM Forms/questionnaires 03/12/2024 9:41 AM EST - 03/12/2024 10:52 AM EST Hospital Encounter [facility] Family [facility] - Maternity [address] [place] [phone] Carole Fowler MD Discharge Disposition: Home or Self Care 03/12/2024 9:22 AM EST - 03/12/2024 1:08 PM EST Emergency [facility] Emergency [address] [place] [phone] Discharge Disposition: Short Term Hospital 03/12/2024 Telephone Obstetrics and Gynecology - [address] [phone] Donte Morris CNM Vaginal Bleeding - 03/10/2024 2:45 PM EST Routine Obstetrics and Gynecology - [address] [phone] Donte Morris CNM Encounter for supervision of normal first in second trimester (Primary Dx); Insufficient care in second trimester; 27 weeks gestation of ; Encounter for screening for maternal depression 02/26/2024 Telephone Obstetrics and Gynecology - [address] [phone] Donte Morris CNM Problem 02/14/2024 Telephone Obstetrics and Gynecology - [address] [phone] Wendie Stark, RN Appointment (OB f/u/) from Last 3 Months Surgical History Surgery Date Site/Laterality Comments NO PAST SURGERIES Medical History Medical History Date Comments Patient denies medical problems Family History Medical History Relation Name Comments No Known Problems Brother 1 No Known Problems Brother 2 No Known Problems Brother 3 Heart attack Father Stroke Father No Known Problems Maternal Grandmother Asthma Mother Depression Mother Hypertension Mother No Known Problems Paternal Grandmother No Known Problems Sister Relation Name Status Comments Brother 1 Alive Brother 2 Alive Brother 3 Alive Father Maternal Grandfather Maternal Grandmother Alive Mother Alive Paternal Grandfather Paternal Grandmother Alive Sister Alive Social History Tobacco Use Types Packs/Day Years [...] file Not on file Not on file Obstetrics History Para Term AB IAB SAB Ectopic Multiple Livin g Live Births 1 Date Outcome GA Total Labor Labor/2nd/3rd Weight Sex Type Anes PTL Jenn A1 A5 Name Clin Current Summary Episode Dates Number of Fetuses Estimated Date of Delivery 02/14/2024 - Present (04/27/2024) 1 06/04/2024 (set by Kelsey Casillas MA on 02/14/2024 based on Ultrasound on 11/08/2023) Dating Summary Based On [place] Diff Last Menstrual Period on 09/09/2023 06/15/2024 -1w4d Ultrasound on 11/08/2023 06/04/2024 Working GA:10w1d Vitals Pregravid Weight Height TWG (As of 04/27/2024) Pregrav id BMI 63.8 kg (140 lb 10.5 oz) 6.961 kg (15 lb 5.5 oz) Date GA Fund Present FHR Mvmt BP Weight Edema Alb Glu Ket Dil/ Eff/Sta 4 28w0d Inpatient data not displayed here. See encounter summary. Notes Progress Notes - Routine Pre ady - 04/13/2024 - GA:32w4d 04/13/2024 - 32w4d - Clint Martinez CNM OB Visit: Vitals BP: 116/69 Weight: 70.8 [...] CNM on 04/13/2024 at 2:40 PM EST Progress Notes - Routine Pre ady - 03/10/2024 - GA:27w5d 03/10/2024 - 27wd - Donte Morris CNM Subjective Chief Complaint Patient presents with Routine Visit Lillian Jones is a 23 y.o. at 27w5d with a working estimated date of delivery of 02/20/2024, by Last Menstrual Period who presents for a routine visit. She denies vaginal bleeding, leakage of fluid, decreased movements, or contractions. Objective Physical Exam Vitals BP: 116/67 Weight: 68.5 kg (151 lb) [place] Depression Scale: In the Past 7 Days I have been able to laugh and see the funny side of things.: As much as I always could I have looked forward with enjoyment to things.: As much as I ever did I have blamed myself unnecessarily when things went wrong.: Yes, some of the time I have been anxious or worried for no good reason.: No, not at all I have felt scared or panicky for no good reason.: No, not much Things have been getting on top of me.: No, most of the time I have coped quite well I have been so unhappy that I have had difficulty sleeping.: Not at all I have felt sad or miserable.: No, not at all I have been so unhappy that I have been crying.: No, never The thought of harming myself has occurred to me.: Never [place] Depression Scale Total: 4 Ob check list: Tdap due: declines Flu vaccine due: declines Afp due: not done Depression screening: neg If glucose completed: 1hr glucose pending Gbs: n/a Problem list reviewed. Assessment/Plan Encounter for supervision of normal first in second trimester (Primary) - CBC and differential; Future - Glucose tolerance test, 1h gestation; Future - Treponema pallidum antibody with reflex to RPR and particle agglutination; Future Insufficient care in second trimester 27 weeks gestation of Encounter for screening for maternal depression - Health and behavioral assessment; Future F/u routinely Progress Notes - Abstract - 02/14/2024 - GA:24w1d 02/14/2024 - w - Kelsey Casillas MA Vitals 11/07/2023 11/22/2023 12/03/2023 12/26/2023 Blood Pressure 105/88 101/68 102/65 -- Patient Position -- -- -- -- BP Location -- -- -- -- Cuff Size -- -- -- -- Pulse 115 80 83 -- Temp -- -- -- -- Resp -- -- 14 -- Weight (LB) 140.6 138 138.4 Weight (KG) 63.776 62.596 62.778 Height 66 -- 66 66 BMI 22.69 kg/m2 22.27 kg/m2 22.34 kg/m2 22.34 kg/m2 PEF -- -- -- -- O2 Sat -- -- -- -- HC -- -- -- -- Vitals 12/26/2023 Blood Pressure 101/64 Patient Position -- BP Location -- Cuff Size -- Pulse 81 Temp -- Resp 14 Weight (LB) 141.8 Weight (KG) 64.32 Height -- BMI 22.89 kg/m2 PEF -- O2 Sat -- HC -- Last Filed Vital Signs Vital Sign Reading Time Taken Comments Blood Pressure 116/69 04/13/2024 2:19 PM EST Pulse 96 04/13/2024 2:19 PM EST Temperature 36.4 ??C (97.6 ??F) 03/12/2024 10:[address] Respiratory Rate 14 04/13/2024 2:19 PM EST Oxygen Saturation 97% 03/12/2024 10:00 AM EST Inhaled Oxygen Concentration - - Weight 70.8 kg (156 lb) 04/13/2024 2:19 PM EST Height 167.6 cm (5' 6 ) 03/12/2024 9:27 AM EST Body Mass Index 25.18 03/12/2024 9:27 AM EST Plan of Treatment Upcoming Encounters Date Type Department Care Team (Late st Contact Info) Description 05/01/2024 2:45 PM EST Routine Obstetrics and Gynecology - [place] [address] [place] [phone] Radhika Oliva, PAMEL[address] [place] [address] 05/06/2024 3:15 PM EST Routine Obstetrics and Gynecology - [address] [phone] Donte Morris, [facility] [address] [place] [address] Health Maintenance Due Date Last Done Comments Hepatitis B Vaccines (2 of 3 - 3-dose series) 1998 1998 HPV Vaccines (1 - 3-dose series) 2013 DTaP,Tdap,and Td Vaccines (1 - Tdap) 2017 COVID-19 Vaccine ( - 2023-2 5 season) 2023 Influenza Vaccine (#1) 2023 Depression Screening 01/07/2024 Social Influencers of Health Screening 01/07/2024 Cervical Cancer Screening: P ap Smear 12/02/2026 12/03/2023, 12/03/2023, 12/03/2023 HIV Screening Completed 11/22/2023, 11/22/2023 Hepatitis C Screening Completed 11/22/2023 HIB Vaccines Aged Out No longer eligi ble based on patient's age to complete this topic Hepatitis A Vaccines Aged Out No long er eligible based on patient's age to complete this topic IPV Vaccines Aged Out No longer eligi ble based on patient's age to complete this topic Meningococcal ACWY Vaccine Aged Out N o longer eligible based on patient's age to complete this topic Pneumococcal Vaccine: Pediatrics (0 to 5 Years) and At-Risk Patients (6 to 64 Years) Aged Out No longer eligible b ased on patient's age to complete this topic RSV Immunization Patients Under 20 months Aged Out No longer eligible b ased on patient's age to complete this topic Procedures Procedure Name Priority Date/Time Associated Diagnosis Comments STREP B PCR Routine 03/12/2024 10:43 AM EST TRICHOMONAS VAGINALIS ANTIGEN Routine 03/12/2024 10:43 AM EST WET PREP, GENITAL STAT 03/12/2024 10: 43 AM EST CHLAMYDIA TRACHOMATIS AND NEISSERIA GONORRHOEAE PCR Routine 03/12/2024 10:43 AM EST YEH URINE CULTURE TUBE STAT 03/12/2024 10:39 AM EST URINALYSIS WITH REFLEX MICROSCOPIC AND CULTURE STAT 03/12/2024 10:39 AM EST DRUG ABUSE SCREEN 8A PANEL, URINE Routine 03/12/2024 10:39 AM EST URINALYSIS WITH REFLEX MICROSCOPIC AND CULTURE STAT 03/12/2024 10:39 AM EST CULTURE URINE STAT 03/12/2024 10:39 AM EST FIBRONECTIN STAT 03/12/2024 10: 38 AM EST GTT GESTATIONAL 1 HOUR Routine 3:59 PM EST Encounter for supervision of normal first in second trimester CBC WITH AUTO DIFFERENTIAL Routine 03/10/2024 3:59 PM EST Encounter for supervision of normal first in second trimester TREPONEMA PALLIDUM ANTIBODY WITH REFLEX TO RPR AND PARTICLE AGGLUTINATION Routine 03/10/2024 3:59 PM EST Encounter for supervision of normal first in second trimester GLUCOSE TOLERANCE TEST, 1H GESTATION Routine 03/10/2024 3:59 PM EST Encounter for supervision of normal first in second trimester CBC AND DIFFERENTIAL Routine 03/10/2024 3:59 PM EST Encounter for supervision of normal first in second trimester HM HPV Routine 12/03/2023 HEPATITIS C SCREENING Routine 11/22/2023 HIV SCREENING Routine 11/22/2023 from Last 3 Months or Most Recently Relevant to Health Maintenance Results * Trichomonas vaginalis antigen (03/12/2024 10:43 AM EST) Trichomonas vaginalis Negative Negative 03/12/2024 11:26 AM EST [facility] Swab Vaginal structure / Unknown Non-blood Collection / Unknown 03/12/2024 10:43 AM EST 03/12/2024 10:59 AM EST Carole oFwler MD LAB MICROBIOLOGY - GENERAL ORDERABLES [facility] [address] [place] [address], * Chlamydia trachomatis and Neisseria gonorrhoeae molecular study (03/12/2024 10:43 AM EST) Neisseria gonorrhoeae PCR Negative Negative LAB MOLECULAR DIAGNOSTICS METHOD 03/12/2024 1:54 PM EST [facility] Chlamydia trachomatis PCR Negative Negative LAB MOLECULAR DIAGNOSTICS METHOD 03/12/2024 1:54 PM EST [facility] Swab Cervix uteri structure / Unknown Non-blood Collection / Unknown 03/12/2024 10:43 AM EST 03/12/2024 10:59 AM EST Carole Fowler MD LAB MICROBIOLOGY - GENERAL ORDERABLES Performing Organization Address [facility]/ZIP Co de Phone Number [facility] [address] [place] [address], * (ABNORMAL) Strep B molecular study (03/12/2024 10:43 AM EST) Pathologist [facility] B Strep PCR Detected (A) Not Detected LAB MICROBIOLOGY METHOD 03/13/2024 9:48 AM EST [facility] Swab Vaginal swab / Unknown Non-blood Collection / Unknown 03/12/2024 10:43 AM EST 03/12/2024 10:59 AM EST Narrative [facility] - 03/13/2024 9:48 AM EST Group B Streptococcus Susceptibility testing is not routinely performed since this organism is predictably sensitive to Penicillin. Susceptibility testing should be performed for Penicillin Allergic women at HIGH RISK for Anaphylaxis. Should this patient ??require testing, Please contact the Microbiology Department at [phone] within 7 days of receiving this report to request susceptibility. Carole Fowler MD LAB BLOOD ORDERABLE S Performing Organization Address [facility]/ZIP Co de Phone Number [facility] [address] [place] [address], * (ABNORMAL) Wet prep, genital (03/12/2024 10:43 AM EST) [facility] Clue Cells, Wet Prep Negative Negative 03/12/2024 11:25 AM EST [facility] Yeast, Wet Prep Positive(A) Negative 03/12/2024 11:25 AM EST [facility] Trichomonas, Wet Prep Indeterminate Negative 03/12/2024 11:25 AM EST [facility] Comment:Refer to Trichomonas antigen. Swab Vaginal structure / Unknown Non-blood Collection / Unknown 03/12/2024 10:43 AM EST 03/12/2024 10:59 AM EST Carole Fowler MD LAB MICROBIOLOGY - GENERAL ORDERABLES [facility] [address] [place] [address], * (ABNORMAL) Urinalysis with reflex microscopic and culture (03/12/2024 10:39 AM EST) [place] Urine 1.026 1.003 - 1.030 LAB URINALYSIS - AUTOMATED METHOD 03/12/2024 11:47 AM [facility] pH, Urine 6.5 5.0 - 8.0 pH LAB URINALYSIS - AUTOMATED METHOD 03/12/2024 11:47 AM [facility] Leukocytes, Urine Moderate(A) Negative LAB URINALYSIS - AUTOMATED METHOD 03/12/2024 11:47 AM [facility] Nitrite, Urine Negative Negative LAB URINALYSIS - AUTOMATED METHOD 03/12/2024 11:47 AM [facility] Protein, Urine 30(A) <=Trace mg/dL LAB URINALYSIS - AUTOMATED METHOD 03/12/2024 11:47 AM [facility] Glucose, Urine Negative Negative mg/dL LAB URINALYSIS - AUTOMATED METHOD 03/12/2024 11:47 AM [facility] Ketones, Urine Trace(A) Negative mg/dL LAB URINALYSIS - AUTOMATED METHOD 03/12/2024 11:47 AM [facility] Urobilinogen , Urine 1.0 0.2 - 1.0 mg/dL LAB URINALYSIS - AUTOMATED METHOD 03/12/2024 11:47 AM [facility] Bilirubin, Urine Negative Negative LAB URINALYSIS - AUTOMATED METHOD 03/12/2024 11:47 AM [facility] Blood, Urine Negative Negative LAB URINALYSIS - AUTOMATED METHOD 03/12/2024 11:47 AM [facility] RBC, Urine 1 0 - 4 /HPF 03/12/2024 11:47 AM [facility] WBC, Urine 8(H) 0 - 4 /HPF 03/12/2024 11:47 AM [facility] Squamous Epithelial, Urine 60 0 - 60 /LPF 03/12/2024 11:47 AM [facility] Bacteria, Urine Few(A) Negative /HPF 03/12/2024 11:47 AM [facility] Hyaline Casts, Urine 0 0 - 3 /LPF 03/12/2024 11:47 AM [facility] Mucus, Urine Moderate None /HPF 03/12/2024 11:47 AM [facility] Urine Urine specimen obtained by clean catch procedure / Unknown Non-blood Collection / Unknown 03/12/2024 10:39 AM EST 03/12/2024 10:58 AM EST Carole Fowler MD LAB URINE ORDERABLE S Performing Organization Address City/[facility]/ZIP Co de Phone Number [facility] [address] [place] [address], [place] [phone] * Yeh urine culture tube (03/12/2024 10:39 AM EST) Extra Tube Hold for add-ons. 03/12/2024 12:01 PM [facility] Comment:Auto resulted. Urine Urine specimen obtained by clean catch procedure / Unknown Non-blood Collection / Unknown 03/12/2024 10:39 AM EST 03/12/2024 10:58 AM EST Carole Fowler MD LAB URINE ORDERABLE S [facility] [address] [place] [address], [place] [phone] * Drug abuse screen 8a panel, urine (03/12/2024 10:39 AM EST) Amphetamine Screen, Ur Negative Negative LAB CHEMISTRY METHOD 03/12/2024 11:51 AM [facility] Comment:Certain OTC medicati ons containing ephedrine, phenylephrine, pseudoephedrine and phenylpropanolamine can cause false positive results. Barbiturate Screen, Ur Negative Negative LAB CHEMISTRY METHOD 03/12/2024 11:51 AM EST [facility] Benzodiazepine Screen, Ur Negative Negative LAB CHEMISTRY METHOD 03/12/2024 11:51 AM [facility] Cocaine Screen, Ur Negative Negative LAB CHEMISTRY METHOD 03/12/2024 11:51 AM [facility] Opiate Screen, Ur Negative Negative LAB CHEMISTRY METHOD 03/12/2024 11:51 AM [facility] Cannabinoid (THC) Screen, Ur Negative Negative LAB CHEMISTRY METHOD 03/12/2024 11:51 AM [facility] Comment:Specimens from patie nts taking pantoprazole sodium (Protonix) have been shown to produce false positive results. Oxycodone Screen, Ur Negative Negative LAB CHEMISTRY METHOD 03/12/2024 11:51 AM [facility] Fentanyl, Ur Negative Negative LAB CHEMISTRY METHOD 03/12/2024 11:51 AM [facility] Urine Urine specimen obtained by clean catch procedure / Unknown Non-blood Collection / Unknown 03/12/2024 10:39 AM EST 03/12/2024 10:58 AM EST [facility] - 03/12/2024 11:51 AM EST Assay cutoffs: Amphetamines ? 1000 ng/mL Barbiturates ?200 ng/mL Benzodiazepines ?? 200 ng/mL Cocaine ? 300 ng/mL Fentanyl ?1 ng/mL Opiates ? 300 ng/mL Oxycodone ? 100 ng/mL THC ?50 ng/mL Semi-quantitative assay for screening purposes only. Unconfirmed screening result should not be used for non-medical purposes. *ALTERNATE METHOD CONFIRMATION DONE UPON REQUEST ONLY* Carole Fowler MD LAB URINE ORDERABLE S Performing Organization Address [facility] Co de Phone Number [facility] [address] [place] [address], [place] [phone] * Culture urine (03/12/2024 10:39 AM EST) Pathologist [facility] Culture, Urine 10,000-49,000 CFU/mL Mixed urogenital livier, no uropathogens present. Suggest repeat specimen if clinically indicated. 03/13/2024 10:07 AM EST [facility] Urine Urine specimen obtained by clean catch procedure / Unknown Non-blood Collection / Unknown 03/12/2024 10:39 AM EST 03/12/2024 11:47 AM EST Carole Fowler MD LAB MICROBIOLOGY - GENERAL ORDERABLES Performing Organization Address [facility] Co de Phone Number [facility] [address] [place] [address], [place] [phone] * (ABNORMAL) fibronectin (03/12/2024 10:38 AM EST) Fibronectin Positive( A) Negative LAB CHEMISTRY METHOD 03/12/2024 11:29 AM EST [facility] Vaginal Fluid Vaginal structure / Unknown Non-blood Collection / Unknown 03/12/2024 10:38 AM EST 03/12/2024 10:59 AM EST Carole Fowler MD LAB BODY FLUIDS AND STOOLS ORDERABLES Performing Organization Address [facility]/ZIP Co de Phone Number [facility] [address] [place] [address], [place] [phone] * Treponema pallidum antibody with reflex to RPR and particle agglutination (03/10/2024 3:59 PM EST) [facility] T. Pallidum Antibodies Negative Negative LAB CHEMISTRY METHOD 03/10/2024 6:25 PM EST [facility] Blood Venous blood specimen / Unknown Venipuncture / Unknown 03/10/2024 3:59 PM EST 03/10/2024 3:59 PM EST Donte Wilfredo [facility] LAB BLOOD ORDERABLES [facility] [address] [place] [address], [place] [phone] * GTT gestational 1 hour (03/10/2024 3:59 PM EST) [facility] Glucose, 1 HR Gestational 138 See Comment mg/dL LAB CHEMISTRY METHOD 03/10/2024 5:58 PM EST [facility] Blood Venous blood specimen / Unknown Venipuncture / Unknown 03/10/2024 3:59 PM EST 03/10/2024 3:59 PM EST Narrative [facility] - 03/10/2024 5:58 PM EST Gestational Diabetes Challenge Reference Range: 1 hour Glucose <140 mg/dL [facility] LAB BLOOD ORDERABLES Performing Organization Address City/[facility]/ZIP Co de Phone Number [facility] [address] [place] [address], [place] [phone] * (ABNORMAL) CBC auto differential (03/10/2024 3:59 PM EST) [facility] WBC 7.4 4.8 - 10.8 K/[facility] LAB HEMETOLOGY METHOD 03/10/2024 5:52 PM EST [facility] RBC 3.60(L) 3.80 - 4.80 M/[facility] LAB HEMETOLOGY METHOD 03/10/2024 5:52 PM EST [facility] Hemoglobin 11.1(L) 11.5 - 16.0 g/dL LAB HEMETOLOGY METHOD 03/10/2024 5:52 PM [facility] Hematocrit 33.8(L) 35.0 - 47.0 % LAB HEMETOLOGY METHOD 03/10/2024 5:52 PM [facility] MCV 93.6 79.0 - 98.0 FL LAB HEMETOLOGY METHOD 03/10/2024 5:52 PM [facility] MCH 30.7 27.0 - 32.0 pcg LAB HEMETOLOGY METHOD 03/10/2024 5:52 PM [facility] MCHC 32.8 32.0 - 37.0 g/dL LAB HEMETOLOGY METHOD 03/10/2024 5:52 PM [facility] RDW 13.3 11.0 - 15.0 % LAB HEMETOLOGY METHOD 03/10/2024 5:52 PM [facility] Platelets 223 130 - 400 K/mcL LAB HEMETOLOGY METHOD 03/10/2024 5:52 PM [facility] MPV 10.0 7.0 - 11.0 FL LAB HEMETOLOGY METHOD 03/10/2024 5:52 PM [facility] NRBC 0.0 <1.0 % LAB HEMETOLOGY METHOD 03/10/2024 5:52 PM [facility] NRBC Absolute 0.00 <0.10 K/mcL LAB HEMETOLOGY METHOD 03/10/2024 5:52 PM [facility] Neutrophils Relative 78.2 % LAB HEMETOLOGY METHOD 03/10/2024 5:52 PM [facility] Lymphocytes Relative 13.7 % LAB HEMETOLOGY METHOD 03/10/2024 5:52 PM [facility] Monocytes Relative 5.8 % LAB HEMETOLOGY METHOD 03/10/2024 5:52 PM [facility] Eosinophils Relative 1.6 % LAB HEMETOLOGY METHOD 03/10/2024 5:52 PM EST [facility] Basophils Relative 0.3 % LAB HEMETOLOGY METHOD 03/10/2024 5:52 PM [facility] Immature Granulocytes Relative 0.4 % LAB HEMETOLOGY METHOD 03/10/2024 5:52 PM [facility] Neutrophils Absolute 5.82 1.50 - 7.00 K/mcL LAB HEMETOLOGY METHOD 03/10/2024 5:52 PM [facility] Lymphocytes Absolute 1.02 1.00 - 5.00 K/mcL LAB HEMETOLOGY METHOD 03/10/2024 5:52 PM [facility] Monocytes Absolute 0.43 0.20 - 1.00 K/mcL LAB HEMETOLOGY METHOD 03/10/2024 5:52 PM EST [facility] Eosinophils Absolute 0.12 0.00 - 0.50 K/mcL LAB HEMETOLOGY METHOD 03/10/2024 5:52 PM EST [facility] Basophils Absolute 0.02 0.00 - 0.20 K/mcL LAB HEMETOLOGY METHOD 03/10/2024 5:52 PM [facility] Immature Granulocytes Absolute 0.03 0.00 - 0.03 K/mcL LAB HEMETOLOGY METHOD 03/10/2024 5:52 PM EST [facility] Blood Venous blood specimen / Unknown Venipuncture / Unknown 03/10/2024 3:59 PM EST 03/10/2024 3:59 PM EST Donte SANTIAGO LAB BLOOD ORDERABLES [facility] [address] [place] [address], * Cervical Cancer Screening: HPV (12/03/2023) Pathologist [facility] Cervical Cancer Screening: HPV Abnormal, Abstracted Historical Provider [facility] E * HIV Screening (11/22/2023) [facility] HIV Screening Abstracted Historical Provider [facility] * Hepatitis C Screening (11/22/2023) [facility] Hepatitis C Screening Abstracted Historical Provider [facility] from Last 3 Months or Most Recently Relevant to Health Maintenance Advance Directives * Full Code - Default (Latest Code Status on File) Date Activated Date Inactivated Comments 03/12/2024 10:07 AM 03/13/2024 1:15 AM This is o rder is used when code status has not been discussed with the patient, or code status is otherwise unknown/unconfirmed To update the patient's code status, place a code status order. Do not modify or discontinue any currently active code status orders. Care Teams Applications System Analyst Relationship Specialty Start Date End Date Physician, No Pcp PCP - General 02/26/24
--- OUTSIDE RECORDS SUMMARY | 2024-04-27 14:25 | XMS_ITS | Encounter Summary ---
Author Organization [facility] Address [address] [place] [address] Care Team Providers Care Technical Service Representative Name Role Phone Physician, No Pcp Primary Care Provider Unavaila ble Encounter Details Date Type Department Care Team ([facility] Contact Info) Description 04/20/2024 Telephone Obstetrics and Gynecology - [place] [address] [place] [phone] Margaux Lee MA Social History Tobacco Use [...] Progress Notes * Margaux Lee MA - 04/20/2024 3:01 PM EST FMLA form completed and signed by providers, copy will be scanned and 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 documented in this encounter Plan of Treatment Upcoming Encounters Date Type Department Care Team (Late Contact Info) Description 05/01/2024 2:45 PM EST Routine Obstetrics and Gynecology - [address] [phone] Radhika Oliva, [address] [address] 05/06/2024 3:15 PM EST Routine Obstetrics and Gynecology - [place] [address] [place] [phone] Donte Morris, WANDA [address] [place] [address] documented as of this encounter Visit Diagnoses Not on filedocumented in this encounter Care Teams Technical Service Representative Relationship Specialty Start Date End Date Physician, No Pcp PCP - General 02/26/24 documented as of this encounter
== END 2024-04-27 13:10 | disposition left against medical advice (07) ==
PROVIDERS: Emergency Provider Emergency Medicine
DX: O26.893 Other specified pregnancy related conditions, third trimester (principal); R10.2 Pelvic and perineal pain; Z3A.34 34 weeks gestation of pregnancy
CPT/HCPCS: 99281; 99282

== ENCOUNTER 2024-07-21 10:28 | Outpatient (REF) | payer MEDICAID, SELFPAY ==
--- NOTE | ~2024-07-21 | XR_ITS ---
EXAMINATION: XR CERVICAL SPINE CLINICAL INFORMATION: PAIN COMPARISON: None available. TECHNIQUE: 3 views of the cervical spine were obtained. FINDINGS: Minimal right convex scoliosis, likely positional. Mild straightening of the normal lordosis. No subluxations. No fracture, compression deformity, or suspicious bone lesion. Craniocervical junction and C1-2 articulation are intact and aligned. Facets are normally aligned without subluxation. Disc spaces appear preserved throughout. No prevertebral or paravertebral soft tissue abnormalities. XR/XR cervical spine 3V IMPRESSION: No acute findings of the cervical spine. Essentially normal examination. Electronically signed by: Myles Reed MD 07/21/2024 11:05 AM EDT
--- NOTE | ~2024-07-21 | XR_ITS ---
EXAMINATION: XR SHOULDER, RIGHT CLINICAL INFORMATION: R shoulder pain with intermittent radiation to elbow and neck COMPARISON: None available. TECHNIQUE: AP external rotation, Grashey, scapular Y, and axillary views of the right shoulder. FINDINGS: Normal bone mineralization. No fracture, dislocation, or suspicious bone lesion. Normal alignment. The glenohumeral joint is normal. The AC joint is normal. There is a type II acromion. No undersurface spurring. The subacromial space is preserved. Remainder of the soft tissue and bony structures appear normal. XR/XR shoulder RT min 2V IMPRESSION: Normal right shoulder. Electronically signed by: Myles Reed MD 07/21/2024 10:52 AM EDT RP
--- OUTSIDE RECORDS SUMMARY | 2024-07-21 12:06 | XMS_ITS | Clinical Summary ---
Author Organization [facility] [address] [facility] l[address] Address [address] [place] [address] Phone Care Team Providers Care Ambulatory Nurse Name Role Phone Physician, No Pcp Primary Care Provider Unavaila ble Allergies Active Allergy Reactions Criticality Noted Date Comments Shellfish Containing Products Anaphylaxis High 04/26/2022 Pt does not have an epi pen at moment. Medications glycerin-witch Mikayla 12.5-50 % pads Apply 1 each topically if needed for irritation. 06/02/19 25 Active vitamin iron fum-folic acid 28-0.8 mg per tablet Take 1 tablet by mouth 1 (one) time each day with breakfast. 90 tablet 3 06/03/19 25 026 Active ibuprofen (ADVIL,MOTRIN) 600 mg tablet TAKE 1 TABLET BY MOUTH EVERY 6 HOURS NEEDED FOR MILD OR MODERATE PAIN UP TO 10 DAYS 60 tablet 1 07/08/19 25 Active estradioL (ESTRACE) 0.01 % (0.1 mg/gram) vaginal cream Insert 0.1 g into the vagina at bedtime. Apply to affected area nightly for up to 30 days 42.5 g 07/14/19 25 025 Active ibuprofen (ADVIL,MOTRIN) 600 mg tablet Take 1 tablet (600 mg total) by mouth every 6 (six) hours if needed for mild pain or moderate pain for up to 10 days. 60 tablet 1 06/02/19 25 025 Discontinued Active Problems Problem Noted Date Diagnosed Date History of gestational hypertension 05/29/2024 Cervical high risk HPV (human papillomavirus) te st positive 12/16/2023 Overview (07/16/2024): Ip, nl pap, +hpv repeat routinely 07/13/24 Pap NIL neg HPV Heart murmur 07/22/2022 Resolved Problems Problem Noted Date Diagnosed Date Resolved Date Uterine contractions 05/29/2024 025 Intrapartum fever 05/29/2024 07/13/2024 Threatened labor at term 05/28/2024 39 weeks gestation of 05/28/2024 07/13/2024 Positive GBS test 03/20/2024 07/13/2024 Overview (03/20/2024): At 29wks flc Vaginal bleeding in 03/12/2024 07/13/2024 Insufficient care i n second trimester 03/10/2024 07/13/2024 Overview (03/10/2024): Has not been seen for 10wks 02/14/2024 07/13/2024 Overview (05/22/2024): 1. [place] site: [address] 2. Delivery site: [facility] 3. Mobile Mommas: NO 4. Dating criteria: LMP confirmed by 1st trimester ultrasound 5. Blood type: Lab Results Component Value Date BLDTYPE O POSITIVE 11/22/2023 6. Genetic screening: Panorama low risk, Horizon- Negative ; 12/26/2023 AFP negative 6. GBS: Date: pos at 29 weeks 7. FOB name: Jose (involved but not together 8. Plans A. Epidural or other pain management - prefers natural but open B. Labor support identified - Mom and her best friend C. Tdap - Date: declined, Flu - Date: declined D. Breast or Bottle feed: Breast E. Baby's name -Diane F. Circumcision - na 9. Hospital Course: Encounters Date Type Department Care Team Description 07/13/2024 10:15 AM EDT Visit Obstetrics and Gynecology - [address] [phone] Feinland, Radhika B, CNM care and examination (Primary Dx); Cervical high risk HPV (human papillomavirus) test positive 06/08/2024 11:00 AM EDT Routine Obstetrics and Gynecology - [address] [phone] Radhika Oliva CNM Gestational hypertension without significant proteinuria, (Primary Dx); Blood pressure check 05/29/2024 4:17 PM EST Anesthesia Event [address] [phone] Collins Boudreaux MD 05/29/2024 8:16 AM EST - 06/01/2024 4:18 PM EDT Hospital Encounter [address] [phone] Amado Vega MD Discharge Disposition: Home or Self Care 05/28/2024 3:57 AM EST - 05/28/2024 5:01 AM EST Hospital Encounter [address] [phone] Beckie Navarro MD Eppsteiner, Erin E, MD Discharge Disposition: Home or Self Care 05/25/2024 Telephone Obstetrics and Gynecology - [address] [phone] Donte Morris CNM Vaginal Bleeding - 05/22/2024 2:45 PM EST Routine Obstetrics and Gynecology - [address] [phone] Clint Martinez CNM Encounter for supervision of normal first in third trimester (Primary Dx); 38 weeks gestation of 05/15/2024 3:15 PM EST Routine Obstetrics and Gynecology - [address] [phone] Radhika Oliva CNM 37 weeks gestation of (Primary Dx) 05/08/2024 11:00 AM EST Ancillary Procedure Maternal Medicine - [address] [phone] size inconsistent with dates 05/06/2024 3:15 PM EST Routine Obstetrics and Gynecology - [place] [address] [place] [phone] Donte Morris CNM Encounter for supervision of normal first in third trimester (Primary Dx); 35 weeks gestation of 05/01/2024 2:45 PM EST Routine Obstetrics and Gynecology - [place] [address] [place] [phone] Radhika Oliva CNM 35 weeks gestation of (Primary Dx); size inconsistent with dates 04/27/2024 Telephone Obstetrics and Gynecology - [place] [address] [place] [phone] Radhika Oliva CNM Fall from Last 3 Months Immunizations Name Administration Dates Next Due Hep B, Unspecified 1998 MMR, measles mumps and rubel la Live (Priorix; M-M-R II) 12mo and older 06/03/1999 Surgical History Surgery Date Site/Laterality Comments NO [...] Tobacco: Never Tobacco Cessation:Counseling Given: Not Answered Alcohol Use Standard Drinks/Week Comments Not Currently 0 (1 standard drink = 0.6 oz pur e alcohol) Housing Instability Answer Date Recorde d Are you worried that in the next 2 months you may not have stable housing? No 05/29/2024 Food Access & Nutrition Answer Date Rec orded Do you have access to a vari ety of food including fruits and vegetables? Yes 05/29/2024 Access to Healthcare Answer Date Record ed Within the last 3 months, jael mueller many times did you visit the emergency department for your medical care? 1 05/29/2024 Health Literacy Answer Date Recorded How often do you need to hav e someone help you when you read instructions, pamphlets, or other written material from your doctor or pharmacy? Never 05/29/2024 Caregiver: How often do you need to have someone help you when you read instructions, pamphlets, or other written material from your doctor or pharmacy? Not on file 05/29/2024 Financial Risk Answer Date Recorded How hard is it for you to pa y for the very basics like food, housing, medical care, and air conditioning / heating? Not very hard 05/29/2024 Transportation Answer Date Recorded Has the lack of transportati on kept you from meetings, work, or from getting things needed for daily living? No Has the lack of transportati on kept you from medical appointments or from getting medications? No 05/29/2024 Social Isolation Answer Date Recorded How often do you feel lonely or isolated from th ose around you? Never 05/29/2024 Food Risk Answer Date Recorded Within the past 12 months we worried whether our food would run out before we got money to buy more. Never true 05/29/2024 Within the past 12 months th e food we bought just didn't last and we didn't have money to get more. Never true 05/29/2024 Dependent Care Answer Date Recorded Do you need help finding or paying for care for your loved ones. For example, director maternal child or elderly care for an older adult? No 05/29/2024 Education Answer Date Recorded Do you think completing more education or training, like finishing a GED, going to college, or learning a trade, would be helpful for you? No 05/29/2024 Employment and Income Answer Date Recor ded During the last four weeks, have you been actively looking for work? No 05/29/2024 Living Situation Answer Date Recorded What is your living situation? 0 05/29/2024 Interpersonal Safety Answer Date Record ed Physical Abuse 05/29/2024 Verbal Abuse 05/29/2024 Comments No Sex and Gender Information Value Date Recorded Sex Assigned at Not on file Legal Sex Female 11:37 AM EDT Gender Identity Not on file Sexual Orientation Not on file Obstetrics History Para Term AB IAB SAB Ectopic Multiple Livin g Live Births 1 1 1 0 1 1 Date Outcome GA Total Labor Labor/2nd/3rd Weight Sex Type Anes PTL Zac A1 A5 Name Clin 2024 Term 39w 2d 8h 14m 3h 50m/4h 19m/0h 05m 3000 g (105.8 oz) F Vag-S pont Epidur al N Livin g 8 8 Diane Price noe Cortney Fernandez CNM Complications:Intraamniotic Infection,Avulsion of umbilical cord Delivery Location:[facility] Summary Episode Dates Number of Fetuses Estimated Date of Delivery 02/14/2024 - Present (07/21/2024) 1 06/04/2024 (set by Kelsey Casillas MA on 02/14/2024 based on Ultrasound on 11/08/2023) Dating Summary Based On BRENDAN GA Diff Last Menstrual Period on 09/09/2023 06/15/2024 -1w4d Ultrasound on 11/08/2023 06/04/2024 Working GA:10w1d Vitals Pregravid Weight Height TWG (As of 07/21/2024) Pregrav id BMI 63.8 kg (140 lb 10.5 oz) 1.676 m (66 ) 10.1 kg (22 lb 5.5 oz) 22.71 Date GA Fund Present FHR Mvmt BP Weight Edema Alb Glu Ket Dil/ Eff/Sta 4 28w0d Inpatient data not displayed here. See encounter summary. 5 39w0d Inpatient data not displayed here. See encounter summary. 5 39w2d Inpatient data not displayed here. See encounter summary. Notes Progress Notes - Visit - 07/13/2024 - GA:39w2d 07/13/2024 - 39w2d - Radhika Celis CNM Visit Encounter Date: 07/13/2024 Chief Complaint: Chief Complaint Patient presents with ppv Subjective: Cristiane Villalobos is a 24 y.o. who presents for visit. She is 6 weeks s/p vaginal delivery. She reports some discomfort where labial repair was done. She is pumping breastmilk without difficulty. Lochia stopped. Has not yet had intercourse or menses. Mood is good, EPDS 7, states a little anxious but manageable, advised to call if s increase. Desires condoms for contraception. was complicated by gHTN, denies any sx at this time. Review of Systems: As in HPI. All other systems reviewed and negative. Patient Active Problem List Diagnosis Cervical high risk HPV (human papillomavirus) test positive Heart murmur History of gestational hypertension OB History Para Term AB Living 1 1 1 1 SAB IAB Ectopic Multiple Live Births 0 1 # Outcome Date GA Lbr Bradley/2nd Weight Sex Type Anes PTL Lv 1 Term 05/30/24 39w2d 03:50 / 04:19 3000 g (105.8 oz) F Vag-Spont EPI N ZAC Complications: Intraamniotic Infection, Avulsion of umbilical cord Past Medical History: Diagnosis Date Patient denies medical problems Social History Socioeconomic History Marital status: Single Spouse name: None Number of children: None Years of education: None Highest education level: None Occupational History None Tobacco Use Smoking status: Never Smokeless tobacco: Never Substance and Sexual Activity Alcohol use: Not Currently Drug use: Never Sexual activity: Not Currently Other Topics Concern None Social History Narrative None Prior to Admission medications Medication Sig Start Date End Date Taking? Authorizing Provider glycerin-witch Mikayla 12.5-50 % pads Apply 1 each topically if needed for irritation. 06/01/24 Yes Radhika Oliva CNM ibuprofen (ADVIL,MOTRIN) 600 mg tablet TAKE 1 TABLET BY MOUTH EVERY 6 HOURS NEEDED FOR MILD OR MODERATE PAIN UP TO 10 DAYS 07/07/24 Yes Radhika Oliva CNM vitamin iron fum-folic acid 28-0.8 mg per tablet Take 1 tablet by mouth 1 (one) time each day with breakfast. 06/02/24 06/02/25 Yes Radhiak Oliva CNM ibuprofen (ADVIL,MOTRIN) 600 mg tablet Take 1 tablet (600 mg total) by mouth every 6 (six) hours if needed for mild pain or moderate pain for up to 10 days. 06/01/24 07/07/24 Radhika Oliva CNM Allergies Allergen Reactions Shellfish Containing Products Anaphylaxis Pt does not have an epi pen at moment. Objective: Vitals: 07/13/24 1029 BP: 110/71 Pulse: 83 Resp: 12 Weight: 64.5 kg (142 lb 3.2 oz) Height: 1.676 m (66 ) Gen: Alert, cooperative. Well-appearing on today's exam Cardiovascular: regular rate and rhythm, no m/r/g Lung: clear to auscultation bilaterally, no wheezing, ronchi, normal respiratory effort Breast: Normal appearance, no masses or tenderness, no nipple retraction or dimpling bilaterally. No axillary or supraclavicular adenopathy Abdomen: No scars. Soft, non-tender. No masses palpable, no organomegaly. Lymph: No inguinal lymphadenopathy. Extremities: no calf tenderness or edema, atraumatic without deformity Skin: Skin color, texture, turgor normal. No rashes or lesions Psych: Mood and affect appropriate. Pelvic: External Genitalia: Sl atrophy and erythema where repair was done Vagina: Normal appearance. Mucosa is pink, normal rugae, no abnormal discharge. No lesions. Cervix: Normal appearance, without discharge or lesions. Uterus: Normal size and shape. Non-tender Adnexa: No adnexal masses, tenderness bilaterally. Assessment/Plan: 24 y.o. with: 1. Contraception-condoms 2. 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 3. Pap smear today 4. Will try estrogen cream on labia repair site, advised to call if not improving in 30 days 3. AE in one year 1. care and examination 2. Cervical high risk HPV (human papillomavirus) test positive Pap smear No orders of the defined types were placed in this encounter. aRdhika Oliva CNM Progress Notes - Routine Pre - 06/08/2024 - GA:39w2d 06/08/2024 - 39w2d - Rhett mensah, Radhika Mccall CNM 06/08/2024 Chief Complaint Patient presents with Follow-up B/p check Subjective: Cristiane Villalobos is a 24 y.o. who presents for PP BP check. Denies headache, visual changes, and epigastric pain Review of Systems: As in HPI. Patient Active Problem List Diagnosis Cervical high risk HPV (human papillomavirus) test positive Insufficient care in second trimester Vaginal bleeding in Positive GBS test Heart murmur Threatened labor at term 39 weeks gestation of Gestational hypertension, antepartum Intrapartum fever Past Medical History: Diagnosis Date Patient denies medical problems Past Surgical History: Procedure Laterality Date NO PAST SURGERIES Family History Problem Relation Name Age of Onset Asthma Mother Depression Mother Hypertension Mother Stroke Father Heart attack Father No Known Problems Sister No Known Problems Brother No Known Problems Brother No Known Problems Brother No Known Problems Maternal Grandmother No Known Problems Paternal Grandmother Social History Socioeconomic History Marital status: Single Spouse name: Not on file Number of children: Not on file Years of education: Not on file Highest education level: Not on file Occupational History Not on file Tobacco Use Smoking status: Never Smokeless tobacco: Never Substance and Sexual Activity Alcohol use: Not Currently Drug use: Never Sexual activity: Not on file Other Topics Concern Not on file Social History Narrative Not on file OB History Para Term AB Living 1 1 1 1 SAB IAB Ectopic Multiple Live Births 0 1 # Outcome Date GA Lbr Bradley/2nd Weight Sex Type Anes PTL Lv 1 Term 05/30/24 39w2d 03:50 / 04:19 3000 g (105.8 oz) F Vag-Spont EPI N ZAC Complications: Intraamniotic Infection, Avulsion of umbilical cord Prior to Admission medications Medication Sig Start Date End Date Taking? Authorizing Provider acetaminophen (TYLENOL) 325 mg tablet Take 2 tablets (650 mg total) by mouth every 4 (four) hours if needed for mild pain or moderate pain for up to 10 days. 06/01/24 06/11/24 Radhika Oliva CNM glycerin-witch Mikayla 12.5-50 % pads Apply 1 each topically if needed for irritation. 06/01/24 Radhika Oliva CNM ibuprofen (ADVIL,MOTRIN) 600 mg tablet Take 1 tablet (600 mg total) by mouth every 6 (six) hours if needed for mild pain or moderate pain for up to 10 days. 06/01/24 06/11/24 Radhika Oliva CNM vitamin iron fum-folic acid 28-0.8 mg per tablet Take 1 tablet by mouth 1 (one) time each day with breakfast. 06/02/24 06/02/25 Radhika Oliva CNM Allergies Allergen Reactions Shellfish Containing Products Anaphylaxis Pt does not have an epi pen at moment. Objective: Vitals: 06/08/24 1112 BP: 118/81 Pulse: 93 Resp: 16 Weight: 68 kg (150 lb) Gen: Well-appearing on today's exam NEUROLOGIC: speech fluent, grossly intact PSYCH: Mood and affect appropriate. Alert and oriented x 3. Assessment/Plan: 24 y.o. with: 1. Gestational hypertension, antepartum 2. Blood pressure check No orders of the defined types were placed in this encounter. Advised to call with headache, visual changes, epigastric pain, or any other concerns. Follow up in about 5 weeks (around 07/13/2024) for PP visit as scheduled. Radhika Oliva CNM 06/08/2024 - 39w2d - Coby Chavarria MA Blood pressure good per Radhika Oliva Progress Notes - Hospital En counter - 06/01/2024 - GA:39w2d 05/31/2024 - 39w2d - Vanessa Ho CNM Obstetrics Progress Note Subjective Subjective Pain: reports very mild, meds take care of it Bleeding: lochia moderate PO's: regular diet Voiding: without difficulty Ambulating: well Feeding: breast feeding only Objective Objective Vitals Temp: 36.2 ??C (97.2 ??F) (05/31 754) Heart Rate: 80 (05/31 754) Resp: 18 (05/31 754) BP: 131/86 (05/31 754) Physical Exam General: well Chest/Breasts: normal Fundus Fundal Tone: Firm Fundal Position: Midline Fundus Location: 2 below umbilicus Lochia Lochia Color: Rubra Amount: Scant Lochia Odor: None Clots: None Perineum Appearance: Well approximated Intervention: Ice on, Majo bottle, Medicated pads Extremities: symmetric Data Labs Reviewed and Significant for: Lab Results Component Value Date RBC 3.60 (L) 05/29/2024 HCT 32.6 (L) 05/29/2024 Principal Problem: Uterine contractions Active Problems: Gestational hypertension, antepartum Intrapartum fever Status Information for the patient's : Gayle Villalobos [[id number]] [facility]-1 Problem-based Assessment and Plan Cristiane Villalobos is a 23 y.o. day 1 s/p Vaginal, Spontaneous. 1. Post care: meeting all goals 2. Hemodynamics: stable 3. Pain: controlled 4. Method of Feeding: breast feeding only 5. Anticipate discharge tomorrow Vanessa Ho CNM 05/31/2024 05/30/2024 - 39w2d - Amado Gonzalez MD OB Progress Note Subjective Patient pushing, initially there was poor maternal efforts and is currently pushing well. During her intrapartum course, she has been diagnosed with GHTN, (Asymptomatic, BP currently wnl with occasional mildly elevated BP's and HELLP labs wnl). As well as Chorioamnionitis on Amp and Gent. She is currently afebrile. Objective Current Medications: lactated Ringer's, 125 mL/hr, Last Rate: Stopped (05/29/249) oxytocin, 42-333 reymundo-units/min ampicillin, 2 g, intravenous, q6h penicillin G potassium, 3 Million Units, intravenous, q4h sodium chloride, 10 mL, intravenous, BID Last Recorded Vitals: Patient Vitals for the past 24 hrs: BP Temp Temp src Pulse Resp SpO2 Height Weight 05/29/24 2345 123/69 -- -- (!) 117 -- -- -- -- 05/29/24 2331 132/63 -- -- 105 -- -- -- -- 05/29/243 -- 36.9 ??C (98.5 ??F) Oral -- -- -- -- -- 05/29/24 2320 137/58 -- -- 104 -- -- -- -- 05/29/24 2307 119/60 -- -- 108 -- -- -- -- 05/29/246 133/74 -- -- (!) 111 -- -- -- -- 05/29/241 110/68 37.2 ??C (98.9 ??F) Oral (!) 127 -- -- -- -- 05/29/242199 119/62 -- -- (!) 115 -- -- -- -- 05/29/242144 136/67 -- -- (!) 122 -- -- -- -- 05/29/242133 -- (!) 38.4 ??C (101.2 ??F) Oral -- -- -- -- -- 05/29/242130 100/81 -- -- (!) 144 -- -- -- -- 05/29/242114 136/67 -- -- (!) 139 -- 100 % -- -- 05/29/242109 -- -- -- -- -- -- -- 73.9 kg (163 lb) 05/29/242099 (!) 146/65 -- -- (!) 146 -- 99 % -- -- 05/29/242051 133/73 -- -- (!) 112 -- -- -- -- 05/29/242044 -- (!) 38.4 ??C (101.1 ??F) Oral -- -- -- -- -- 05/29/242029 (!) 141/83 -- -- (!) 116 -- 100 % -- -- 05/29/242012 -- (!) 38.4 ??C (101.2 ??F) Axillary -- -- -- -- -- 05/29/241999 131/85 37.7 ??C (99.8 ??F) Temporal (!) 115 18 100 % -- -- 05/29/241899 125/81 -- -- 89 -- 100 % -- -- 05/29/241854 -- -- -- 85 -- 100 % -- -- 05/29/241849 -- -- -- 91 -- 100 % -- -- 05/29/241844 -- -- -- 90 -- 100 % -- -- 05/29/241843 -- -- -- 90 -- 100 % -- -- 05/29/241839 -- -- -- 103 -- 100 % -- -- 05/29/241834 -- -- -- 101 -- 100 % -- -- 05/29/241829 120/80 -- -- 107 -- 100 % -- -- 05/29/241824 -- -- -- 98 -- 100 % -- -- 05/29/241819 -- -- -- 97 -- 100 % -- -- 05/29/241814 -- -- -- 96 -- 100 % -- -- 05/29/241809 -- -- -- 78 -- 100 % -- -- 05/29/241804 -- -- -- 83 -- 100 % -- -- 05/29/241800 119/67 36.8 ??C (98.2 ??F) Temporal 78 18 -- -- -- 05/29/24 1800 -- -- -- 85 -- 100 % -- -- 05/29/241754 -- -- -- 80 -- 100 % -- -- 05/29/241749 -- -- -- 75 -- 100 % -- -- 05/29/241744 -- -- -- 80 -- 100 % -- -- 05/29/241739 -- -- -- 82 -- 100 % -- -- 05/29/241734 -- 36.9 ??C (98.4 ??F) Temporal 78 18 100 % -- -- 05/29/241730 123/71 -- -- 79 -- -- -- -- 05/29/241729 -- -- -- 76 -- 100 % -- -- 05/29/241724 -- -- -- 82 -- 100 % -- -- 05/29/241719 -- -- -- 82 -- 100 % -- -- 05/29/241714 -- -- -- 74 -- 100 % -- -- 05/29/241713 -- -- -- 74 -- 100 % -- -- 05/29/24 171 -- -- -- 96 -- 100 % -- -- 05/29/24 1706 121/59 -- -- 98 -- -- -- -- 05/29/24 1705 -- -- -- 76 -- 100 % -- -- 05/29/24 170 125/60 -- -- 78 -- -- -- -- 05/29/24 1700 -- -- -- 82 -- 100 % -- -- 05/29/24 1656 125/56 -- -- 87 -- -- -- -- 05/29/241654 -- -- -- 91 -- 100 % -- -- 05/29/24 1651 125/56 -- -- 86 -- -- -- -- 05/29/24 1650 -- -- -- 88 -- 100 % -- -- 05/29/24 1646 129/65 -- -- 92 -- -- -- -- 05/29/24 1645 -- -- -- 107 -- 100 % -- -- 05/29/24 1641 114/85 -- -- 107 -- -- -- -- 05/29/24 1640 -- -- -- 105 -- 100 % -- -- 05/29/24 1639 124/72 36.9 ??C (98.4 ??F) Temporal 105 18 -- -- -- 05/29/24 1636 127/86 -- -- (!) 113 -- -- -- -- 05/29/24 1635 130/62 -- -- 96 -- 100 % -- -- 05/29/24 1634 -- 36.3 ??C (97.3 ??F) Temporal -- 18 100 % -- -- 05/29/24 1632 124/57 -- -- 103 -- -- -- -- 05/29/24 1631 99/61 -- -- 103 -- -- -- -- 05/29/24 1629 (!) 153/56 -- -- 99 -- -- -- -- 05/29/24 1627 (!) 144/76 -- -- 103 -- -- -- -- 05/29/24 1625 -- -- -- 98 -- 94 % -- -- 05/29/24 1624 (!) 132/93 -- -- 107 -- -- -- -- 05/29/24 1623 (!) 139/92 -- -- 95 -- -- -- -- 05/29/24 1621 136/59 -- -- 101 -- -- -- -- 05/29/24 1620 -- -- -- 104 -- 100 % -- -- 05/29/24 1619 (!) 141/99 -- -- 107 -- -- -- -- 05/29/24 1617 (!) 146/92 36.1 ??C (97 ??F) Temporal 85 18 100 % -- -- 05/29/24 1605 -- -- -- 91 -- 100 % -- -- 05/29/24 1555 -- -- -- 98 -- 100 % -- -- 05/29/24 1540 -- -- -- 106 -- 99 % -- -- 05/29/24 1525 -- -- -- 92 -- 99 % -- -- 05/29/24 1524 122/77 -- -- 93 -- -- -- -- 05/29/24 1522 -- 36.9 ??C (98.4 ??F) Temporal 92 18 99 % -- -- 05/29/24 1520 -- -- -- 96 -- 99 % -- -- 05/29/24 1423 -- 36.8 ??C (98.2 ??F) Temporal -- -- -- -- -- 05/29/24 1315 131/78 36.7 ??C (98.1 ??F) Temporal 100 18 100 % -- -- 05/29/24 1219 116/69 -- -- 89 18 100 % -- -- 05/29/24 1218 -- 36.8 ??C (98.3 ??F) Temporal -- -- -- -- -- 05/29/24 1100 -- 36.9 ??C (98.4 ??F) Temporal -- -- -- -- -- 05/29/24 1010 -- -- -- -- -- -- 1.676 m (66 ) 73.9 kg (163 lb) 05/29/24 0844 (!) 130/94 -- -- (!) 112 -- 99 % -- -- 05/29/24 0834 -- -- -- -- -- 100 % -- -- 05/29/24 0833 (!) 133/93 36.8 ??C (98.2 ??F) Temporal 16 -- -- -- Input/Output: I/O this shift: In: 987 [I.V.:937; IV Piggyback:50] Out: 75 [Urine:75] Intake/Output Summary (Last 24 hours) at 05/29/2024 2351 Last data filed at 05/29/2024 1900 Gross per 24 hour Intake 1184.92 ml Output 75 ml Net 1109.92 ml OBGyn Exam Last Cervical Exam: 10 cm dilated, 100 % effaced, 2 station. The fetus is in a Cephalic presentation and position. Heart Monitoring Info: Baseline 150's, moderate variability, + accelerations, occasional early, variable and late decelerations noted, undergoing intrauterine resuscitation with position change and IVF bolus. Over all FWBR. TOCO q 2-3 min irregularly Lab Results: Recent Results (from the past 48 hours) Treponema pallidum antibody with reflex to RPR and particle agglutination Collection Time: 05/29/24 9:00 AM Result Value Ref Range T. Pallidum Antibodies Negative Negative Type and screen Collection Time: 05/29/24 9:00 AM Result Value Ref Range ABO Group O Rh Type Positive Antibody Screen Negative CBC auto differential Collection Time: 05/29/24 9:00 AM Result Value Ref Range WBC 9.9 4.8 - 10.8 K/mcL RBC 3.80 3.80 - 4.80 M/mcL Hemoglobin 11.3 (L) 11.5 - 16.0 g/dL Hematocrit 34.1 (L) 35.0 - 47.0 % MCV 90.9 79.0 - 98.0 FL MCH 30.1 27.0 - 32.0 pcg MCHC 33.1 32.0 - 37.0 g/dL RDW 14.5 11.0 - 15.0 % Platelets 240 130 - 400 K/mcL MPV 10.6 7.0 - 11.0 FL NRBC 0.0 <1.0 % NRBC Absolute 0.00 <0.10 K/mcL Neutrophils Relative 79.3 % Lymphocytes Relative 11.1 % Monocytes Relative 7.9 % Eosinophils Relative 1.0 % Basophils Relative 0.3 % Immature Granulocytes Relative 0.4 % Neutrophils Absolute 7.82 (H) 1.50 - 7.00 K/mcL Lymphocytes Absolute 1.09 1.00 - 5.00 K/mcL Monocytes Absolute 0.78 0.20 - 1.00 K/mcL Eosinophils Absolute 0.10 0.00 - 0.50 K/mcL Basophils Absolute 0.03 0.00 - 0.20 K/mcL Immature Granulocytes Absolute 0.04 (H) 0.00 - 0.03 K/mcL Alanine aminotransferase Collection Time: 05/29/24 9:02 PM Result Value Ref Range ALT (SGPT) 10 10 - 60 unit/L Aspartate aminotransferase Collection Time: 05/29/24 9:02 PM Result Value Ref Range AST (SGOT) 10 10 - 42 unit/L BUN Collection Time: 05/29/24 9:02 PM Result Value Ref Range BUN 5 5 - 25 mg/dL Creatinine Collection Time: 05/29/24 9:02 PM Result Value Ref Range Creatinine 0.77 0.50 - 1.10 mg/dL eGFR 110 >=60 mL/min/1.73m2 Protein and creatinine with ratio, urine Collection Time: 05/29/24 9:13 PM Result Value Ref Range Protein, Urine 23 mg/dL Prot/Creat, Ur 0.12 <=0.20 mg/mg creat Creatinine, Urine 185.0 mg/dL Complete blood count Collection Time: 05/29/24 10:00 PM Result Value Ref Range WBC 11.3 (H) 4.8 - 10.8 K/mcL RBC 3.60 (L) 3.80 - 4.80 M/mcL Hemoglobin 10.9 (L) 11.5 - 16.0 g/dL Hematocrit 32.6 (L) 35.0 - 47.0 % MCV 90.1 79.0 - 98.0 FL MCH 30.1 27.0 - 32.0 pcg MCHC 33.4 32.0 - 37.0 g/dL RDW 14.6 11.0 - 15.0 % Platelets 248 130 - 400 K/mcL MPV 10.9 7.0 - 11.0 FL NRBC 0.0 <1.0 % NRBC Absolute 0.00 <0.10 K/mcL Imaging Results: US OB 14+ Wks Single or First Gestation Narrative: OBSTETRICS REPORT (Signed Final 05/08/2024 04:07 pm) PATIENT INFO: ID #: [id number] : [birth year] (23 yrs)(F) Name: CRISTIANE VILLALOBOS Visit Date: 05/08/2024 09:20 am PERFORMED BY: Attending: Dianna Wilde MD Performed By: Kaz Alvarez RDMS Referred By: Donte Morris CNM Ref. Address: [address] [place] [address] Location: [facility] SERVICE(S) PROVIDED: OB Complete >=14 weeks [id number] INDICATIONS: Maternal care for other known or suspected O36.5930 poor growth, third trimester, crawford Uterine size-date discrepancy, third trimester O26.843 36 weeks gestation of Z3A.36 TECHNIQUE/SCAN QUALITY: Technique: Transabdominal Scan Satisfactory Quality: OB HISTORY: : 1 VITAL SIGNS: Weight (lb) Height BMI 164 5'6 26.47 EVALUATION: Number Of Fetuses: 1 Heart Rate(bpm): 152 Cardiac Activity: Observed Presentation: Cephalic Placenta Location: Anterior Appearance: Grade 2 Relation to CVX: No previa Amniotic Fluid ANOOP FV: Within Normal Limits RUQ(cm) RLQ(cm) LLQ(cm) 3.43 4.07 3.45 ANOOP Sum(cm) %Tile Largest Pocket(cm) 10.95 29 4.07 Comment: A >2 x 2 cm pocket of fluid is noted. BIOMETRY: BPD: 85.2 mm G.Age: 34w 2d 13 % HC: 312.5 mm G.Age: 35w 0d 5 % AC: 322.9 mm G.Age: 36w 1d 63 % FL: 67.9 mm G.Age: 34w 6d 17 % CER: 45.6 mm G.Age: N/A 81 % LV: 3.1 mm CM: 5.2 mm CI: 74.84 % 70 - 86 FL/HC: 21.7 % 20.1 - 22.1 HC/AC: 0.97 0.93 - 1.11 FL/BPD: 79.7 % 71 - 87 FL/AC: 21.0 % 20 - 24 Est. FW: 2702 gm 5 lb 15 oz 35 % GESTATIONAL AGE: LMP: 34w 4d Date: 09/09/23 BRENDAN: 06/15/24 U/S Today: 35w 1d BRENDAN: 06/11/24 Best: 36w 1d Det. By: Previous BRENDAN: 06/04/24 Ultrasound STANDARD ANATOMY: Cranium: Normal appearance Ventricles: Normal appearance Cerebellum: Normal appearance Posterior Fossa: Normal appearance Heart: Suboptimal views Stomach: Normal appearance Abdominal Wall: Suboptimal views Kidneys: Normal appearance Bladder: Normal appearance Spine: Normal appearance of vertebrae COMMENTS: Ms. Villalobos is being seen for assessment of growth for size less than dates. - Her medical history is not contributory. - Ultrasound findings: The estimated weight is 2702 grams, at the 35th percentile. The amniotic fluid index is 10.95 cm, appropriate for the gestational age. - Dianna Wilde MD Electronically Signed Final Report 05/08/2024 04:07 pm Impression: Recommendations/Plan: No additional ultrasounds have been scheduled. Follow up as clinically indicated. Assessment/Plan Principal Problem: Uterine contractions Date Noted: 05/29/2024 Active Problems: Gestational hypertension, antepartum Date Noted: 05/29/2024 Intrapartum fever Date Noted: 05/29/2024 We discussed options of expected management with cont pushing Vs Vacuum assisted vaginal delivery Vs Csection The R/B/A of each option discussed in detail, she desires to cont pushing for a little longer now that she is able to push well and if unable to delivery on her own in the next 30 min or so will opt for vacuum assisted delivery. ( The risk of a vacuum discussed in detail which included and not limited to scalp laceration, cephalohematoma or subdural hematoma, fracture, shoulder dystocia which may lead to clavicle or arm fracture and/or nerve damage that maybe permanent. Maternal increase in laceration and bleeding.) She was given the opportunity to ask questions and voiced understanding of the risk, she desires to proceed with Vacuum delivery for assistance if needed. -cont antibiotics for chorio -cont to monitor BP's and s/sx of preE -cont EFM/[place] as per protocol During the current documentation, she cont to push well and is now +3, the contractions spaced out and will start oxytocin for augmentation, vacuum was offered once again at 4 hrs of pushing to expedite delivery and declined. -she continues to push well with expect Amado Vega MD Progress Notes - Routine Pre - 05/22/2024 - GA:38w1d 05/22/2024 - 38w1d - Clint Martinez CNM OB Visit: Vitals BP: 122/74 Weight: 75.8 kg (167 lb) Assessment Heart Rate: 140 Fundal Height (cm): 38 cm Movement: Present Presentation: Cephalic 23 y.o. old female at 38w1d. Doing well. Appropriate FM. No LOF/VB/cramping. Her only new concern is none, feeling well has no questions or concerns at this time. Otherwise healthy . Her BP is reviewed and is Normal. This patient does not require a urine drug screen. Signs and symptoms of labor reviewed including reasons to call triage. Problem List reviewed and updated. RTO 1 week or PRN 1. Encounter for supervision of normal first in third trimester 2. 38 weeks gestation of Clint Martinez CNM on 05/22/2024 at 10:20 AM EST Progress Notes - Routine Pre - 05/15/2024 - GA:37w1d 05/15/2024 - 37w1d - Radhika Celis CNM OB Visit: Vitals BP: 108/65 Weight: 76.2 kg (168 lb) Assessment Heart Rate: 150 Fundal Height (cm): 37 cm Movement: Present Presentation: Cephalic 23 y.o. old female at 37w1d. Doing well. Appropriate FM. No LOF/VB/cramping. Her only new concern is none. Otherwise healthy . Her BP is reviewed and is Normal. This patient does not require a urine drug screen. Signs and symptoms of labor reviewed including reasons to call triage. Problem List reviewed and updated. RTO 1 weeks. Radhika Oliva CNM on 05/15/2024 at 3:27 PM EST Progress Notes - Routine Pre - 05/06/2024 - GA:35w6d 05/06/2024 - 35w6d - Donte Morris CNM Subjective Chief Complaint Patient presents with Routine Visit Cristiane Villalobos is a 23 y.o. at 35w6d with a working estimated date of delivery of Estimated Date of Delivery: 06/04/24 by Last Menstrual Period who presents for a routine visit. She denies vaginal bleeding or leakage of fluid, denies uc. reports FM Some discomfort near xyphoid process when sitting up, reassured about position causing pain, reports discomfort is improved with lounging and laying down Objective Physical Exam Vitals BP: 114/66 Weight: 74.4 kg (164 lb) Fundal Height (cm): 36 cm Heart Rate: 150 Ob check list: Tdap due: declines Flu vaccine due: declines If glucose completed: neg result Gbs: pos Problem list reviewed. Assessment/Plan Encounter for supervision of normal first in third trimester (Primary) 35 weeks gestation of F/u routinely in 1wk Reviewed coping mechanism of upper fundal discomfort with sitting up position Progress Notes - Routine Pre - 05/01/2024 - GA:35w1d 05/01/2024 - 35w1d - Radhika Celis CNM OB Visit: Vitals BP: 118/79 Weight: 72.1 kg (159 lb) Assessment Heart Rate: 130 Fundal Height (cm): 33 cm Movement: Present Presentation: Cephalic 23 y.o. old female at 35w1d. Doing well. Appropriate FM. No LOF/VB/cramping. Her only new concern is none. Measuring S<D, growth scan ordered. Otherwise healthy . Her BP is reviewed and is Normal. This patient does not require a urine drug screen. Signs and symptoms of labor reviewed including reasons to call triage. Problem List reviewed and updated. RTO 1 weeks. Radhika Oliva CNM on 05/01/2024 at 3:22 PM EST Progress Notes - Routine Pre [...] ady - 03/10/2024 - GA:27w5d 03/10/2024 - w5d - Donte Morris CNM Subjective Chief Complaint Patient presents with Routine Visit Cristiane Villalobos is a 23 y.o. at 27w5d with a working estimated date of delivery of 02/20/2024, by Last Menstrual Period who presents for a routine visit. She denies vaginal bleeding, leakage of fluid, decreased movements, or contractions. Objective Physical Exam Vitals BP: 116/67 Weight: 68.5 kg (151 lb) Odell Depression Scale: In the Past 7 Days [...] harming myself has occurred to me.: Never Odell Depression Scale Total: 4 Ob check list: [...] Abstract - 02/14/2024 - GA:24w1d 02/14/2024 - 24w1d - Kelsey Casillas MA Vitals 11/07/2023 11/22/2023 [...] Sign Reading Time Taken Comments Blood Pressure 110/71 07/13/2024 10:29 AM EDT Pulse 83 07/13/2024 10:29 AM EDT Temperature 36.5 ??C (97.7 ??F) 06/01/2024 8:22 AM ED T Respiratory Rate 12 07/13/2024 10:29 AM EDT Oxygen Saturation 100% 06/01/2024 8:22 AM EDT Inhaled Oxygen Concentration - - Weight 64.5 kg (142 lb 3.2 oz) 07/13/2024 10:29 AM EDT Height 167.6 cm (5' 6 ) 07/13/2024 10:29 AM EDT Body Mass Index 22.95 07/13/2024 10:29 AM EDT Plan of Treatment Health Maintenance Due Date Last Done Comments Hepatitis B Vaccines (2 of 3 - 3-dose series) 1998 1998 HPV Vaccines (1 - 3-dose series) 2013 DTaP,Tdap,and Td Vaccines (1 - Tdap) 2017 COVID-19 Vaccine ( - season) 2023 Cholesterol Screening (Lipid Panel) 01/07/2024 Influenza Vaccine (Season Ended) 2024 Depression Screening 05/20/2025 05/20/2024 Hypertension/CHF/CAD Annual BMP Blood Test 05/29/2025 05/29/2024 Social Influencers of Health Screening 05/29/2025 05/29/2024 Cervical Cancer Screening: Pap Smear 07/14/2027 07/13/2024, 07/13/2024, 12/03/2023, Additional history exists MMR Vaccines Completed 06/03/1999 HIV Screening Completed 11/22/2023, 11/22/2023 Hepatitis C [...] patient's age to complete this topic Meningococcal B Vaccine Aged Out No l onger eligible based on patient's age to complete this topic Pneumococcal Vaccine: Pediatrics (0 to 5 Years) and At-Risk Patients (6 to 64 Years) Aged Out No longer eligible based on patient's age to complete this topic RSV Immunization Patients Under 20 months Aged Out No longer eligible based on patient's age to complete this topic Varicella Vaccines Aged Out No longer eligible based on patient's age to complete this topic Procedures Procedure Name Priority Date/Time Associated Diagnosis Comments PAP SMEAR Routine 07/13/2024 10:56 AM EDT Cervical high risk HPV (human papillomavirus) test positive HPV WITH REFLEX GENOTYPE Routine 025 10:56 AM EDT Cervical high risk HPV (human papillomavirus) test positive EXTERNAL ULTRASOUND REPORT 2024 TISSUE EXAM Routine 05/30/2024 1:49 AM EST CULTURE MISCELLANEOUS Routine 05/30/2024 1:49 AM EST CULTURE MISCELLANEOUS Routine 05/30/2024 1:49 AM EST POCT VENOUS CORD BLOOD GAS Routine 05/30/2024 1:15 AM EST POCT ARTERIAL CORD BLOOD GAS Routine 05/30/2024 1:10 AM EST COMPLETE BLOOD COUNT Routine 05/29/2024 10:00 PM EST PROTEIN AND CREATININE WITH RATIO, URINE STAT 05/29/2024 9:13 PM EST CREATININE, SERUM STAT 05/29/2024 9:0 2 PM EST BUN STAT 05/29/2024 9:02 PM EST ASPARTATE AMINOTRANSFERASE STAT 05/29/2024 9:02 PM EST ALANINE AMINOTRANSFERASE STAT 025 9:02 PM EST ANESTHESIA EPIDURAL BLOCK Routine 05/29/2024 4:17 PM EST CBC WITH AUTO DIFFERENTIAL STAT 05/29/2024 9:00 AM EST TYPE AND SCREEN STAT 05/29/2024 9:00 AM EST CBC AND DIFFERENTIAL STAT 05/29/2024 9:00 AM EST TREPONEMA PALLIDUM ANTIBODY WITH REFLEX TO RPR AND PARTICLE AGGLUTINATION STAT 05/29/2024 9:00 AM EST US OB 14+ WKS SINGLE OR FIRST GESTATION Routine 05/08/2024 11:13 AM EST size inconsistent with dates HM HEPATITIS C SCREENING Routine 11/22/2023 HIV SCREENING Routine 11/22/2023 from Last 3 Months or Most Recently Relevant to Health Maintenance Results * HPV with reflex genotype (07/13/2024 10:56 AM EDT) HPV Negative Negative LAB MICROBIOLOGY METHOD 07/14/2024 1:51 PM EDT [facility] Brushing/Spatula Cervix uteri structure / Unknown 07/13/2024 10:56 AM EDT 07/14/2024 6:07 AM EDT Radhika Oliva [facility] MOLECULAR DIAGNOSTICS O RDERABLES Final Result [facility] [address] [place] [id number], * Pap smear (07/13/2024 10:56 AM EDT) Interpretation Negative for intraepithelial lesion or malignancy 07/16/2024 9:42 AM EDT [facility] General Categorization Negative 07/16/2024 9:42 AM EDT [facility] Specimen Adequacy Satisfactory for evaluation, endocervical/joyce sformation zone component present 07/16/2024 9:42 AM EDT [facility] Pap Methodology Liquid Based Pap Test 07/16/2024 9:42 AM EDT [facility] Disclaimer The Pap test is a screening test which carries an inherent false negative rate. These test results should be correlated with the patient's clinical findings and history. This Pap test was processed using an automated screening system. Technical cytopathology services provided by [facility], at [address] [place] [address] (CLIA # [id number]/Makenzie Alas MD, [employer].) 07/16/2024 9:42 AM EDT [facility] Console Pap Interpretation Reported 07/16/2024 9:42 AM EDT [facility] Brushing/Spatula Cervix uteri structure / Unknown 07/13/2024 10:56 AM EDT 07/13/2024 10:56 AM EDT Radhika Oliva [facility] CYTOLOGY ORDERABLES Fin al Result Performing Organization Address City/[facility]/ZIP Co de Phone Number [facility] [address] [place] [address], [place] [phone] * External Ultrasound Report (2024) Anatomical Region Laterality Modality Ultrasound us Provider Onbase IMLes US PROCEDURES Final Resul t * (ABNORMAL) Culture miscellaneous (05/30/2024 1:49 AM EST) Only the most recent of2 resultswithin the time period is included. Miscellaneous Culture From Enrichment Broth Mamta albicans/dubliniens is(A) 06/04/2024 10:57 AM EDT [facility] Comment: The organism value for this result has been updated. These results have been appended to the previously preliminary verified report. Edited result: Previously reported as Yeast on 06/03/2024 at 0851 EDT. Gram Stain Result No polymorphonuclear leukocytes, No epithelial cells, and No organisms noted 06/04/2024 10:57 AM EDT [facility] Swab Placental structure / Unknown Non-blood Collection / Unknown 05/30/2024 1:49 AM EST 05/30/2024 2:06 AM EST us Marlene Fernandez [facility] MICROBIOLOGY - GENERAL ORDNoe COX Final Result Performing Organization Address City/[facility]/ZIP Co de Phone Number [facility] [address] [place] [address], * Tissue exam (05/30/2024 1:49 AM EST) Final Diagnosis 418 g third trimester placenta (10th-25th percentile for gestational age) with: Acute chorioamnionitis (maternal inflammatory response, stage 2 - intermediate, grade 2 - severe) Acute umbilical phlebitis ( inflammatory response, stage 1 - early, grade 1 - mild to moderate) 2024 4:[address] [facility] Clinical Information Per L&D note: Intraamniotic Infection, cord avulsion 2024 4:[address] [facility] Gross Description A. Placenta, : Labeled placenta . Received in formalin is a 418 g (trimmed weight), 19 x 14.5 x 2.5 cm intact discoid crawford placenta with attached membranes and umbilical cord. The 40.5 by up to 1.8 cm intact three vessel umbilical cord inserts paramarginally, 3 cm from the nearest margin. There are 9 spirals over the total length of 40 cm and a few varices. There is a 14 cm length of the umbilical cord with six coils. The, translucent membranes have a marginal insertion and the site of rupture is 1 cm from the nearest margin. The surface is blue-tam and glistening with minimal subchorionic fibrin. The amnion is detached from approximately 75% of the surface. The maternal surface is red-brown with complete cotyledons. The parenchymal cut surfaces are purple and spongiform, without focal lesions. Battery Charger sections are submitted as follows: 1, membrane roll near rupture site and umbilical cord, three pieces 2-4, full thickness central section of disc, one piece each IRMA 2024 4:[address] [facility] Disclaimer Unless otherwise specified, all tissue is 10% NB formalin fixed and paraffin embedded. 2024 4:[address] [facility] Tissue Placental structure / Unknown Non-blood Collection / Unknown 05/30/2024 1:49 AM EST 06/01/2024 5:41 AM EDT us Marlene Fernandez CNM LAB PATHOLOGY ORDERABLES Final Result [facility] [address] [place] [address], [place] [phone] * (ABNORMAL) POCT Venous cord blood gas (05/30/2024 1:15 AM EST) pH Venous Cord POCT 7.25(L) 7.3 - 7.4 05/30/2024 1:53 AM EST [facility] PCO2 Venous Cord POCT 50.9(H) 35 - 45 mmHg 05/30/2024 1:53 AM EST [facility] pO2 Venous Cord POCT 16(L) 25 - 35 mmHg 05/30/2024 1:53 AM EST [facility] HCO3 Venous Cord POCT 22.1 20.0 - 28.0 mmol/L 05/30/2024 1:53 AM EST [facility] Base Excess Venous Cord POCT -6 -6 - 2 mmol/L 05/30/2024 1:53 AM EST [facility] TCO2 Venous Cord POCT 24 21 - 32 mmol/L 05/30/2024 1:53 AM EST [facility] Blood Venous cord blood specimen / Unknown 05/30/2024 1:15 AM EST 05/30/2024 1:55 AM EST us Amado Vega MD LAB POINT OF CA RE TEST DOCKED DEVICE UNSOLICITED RESULTS Final Result [facility] [address] [place] [address], [place] [phone] * (ABNORMAL) POCT Arterial cord blood gas (05/30/2024 1:10 AM EST) pH Arterial Cord POCT 7.20 7.2 - 7.3 05/30/2024 1:53 AM EST [facility] PCO2 Arterial Cord POCT 56.8(H) 45 - 55 mmHg 05/30/2024 1:53 AM [facility] PO2 Arterial Cord POCT 16 15 - 25 mmHg 05/30/2024 1:53 AM EST [facility] HCO3 Arterial Cord POCT 22.2 21.0 - 29.0 mmol/L 05/30/2024 1:53 AM EST [facility] Base Excess Arterial Cord POCT -7 -7 - 2 mmol/L 05/30/2024 1:53 AM [facility] TCO2 Arterial Cord POCT 24 21 - 32 mmol/L 05/30/2024 1:53 AM [facility] Blood Arterial cord blood specimen / Unknown 05/30/2024 1:10 AM EST 05/30/2024 1:55 AM EST us Amado Vega MD LAB POINT OF CA RE TEST DOCKED DEVICE UNSOLICITED RESULTS Final Result [facility] [address] [place] [address], * (ABNORMAL) Complete blood count (05/29/2024 10:00 PM EST) [facility] WBC 11.3(H) 4.8 - 10.8 K/mcL LAB HEMETOLOGY METHOD 05/29/2024 10:24 PM EST [facility] RBC 3.60(L) 3.80 - 4.80 M/mcL LAB HEMETOLOGY METHOD 05/29/2024 10:24 PM [facility] Hemoglobin 10.9(L) 11.5 - 16.0 g/dL LAB HEMETOLOGY METHOD 05/29/2024 10:24 PM [facility] Hematocrit 32.6(L) 35.0 - 47.0 % LAB HEMETOLOGY METHOD 05/29/2024 10:24 PM EST [facility] MCV 90.1 79.0 - 98.0 FL LAB HEMETOLOGY METHOD 05/29/2024 10:24 PM [facility] MCH 30.1 27.0 - 32.0 pcg LAB HEMETOLOGY METHOD 05/29/2024 10:24 PM EST [facility] MCHC 33.4 32.0 - 37.0 g/dL LAB HEMETOLOGY METHOD 05/29/2024 10:24 PM EST [facility] RDW 14.6 11.0 - 15.0 % LAB HEMETOLOGY METHOD 05/29/2024 10:24 PM [facility] Platelets 248 130 - 400 K/mcL LAB HEMETOLOGY METHOD 05/29/2024 10:24 PM EST [facility] MPV 10.9 7.0 - 11.0 FL LAB HEMETOLOGY METHOD 05/29/2024 10:24 PM [facility] NRBC 0.0 <1.0 % LAB HEMETOLOGY METHOD 05/29/2024 10:24 PM [facility] NRBC Absolute 0.00 <0.10 K/mcL LAB HEMETOLOGY METHOD 05/29/2024 10:24 PM [facility] Blood Venous blood specimen / Unknown Venipuncture / Unknown 05/29/2024 10:00 PM EST 05/29/2024 10:18 PM EST us Amado Vega MD LAB BLOOD ORDERABLES Fi nal Result [facility] [address] [place] [address], * Protein and creatinine with ratio, urine (05/29/2024 9:13 PM EST) Protein, Urine 23 mg/dL LAB CHEMISTRY METHOD 05/29/2024 9:50 PM EST [facility] Prot/Creat, Ur 0.12 <=0.20 mg/mg creat LAB CHEMISTRY METHOD 05/29/2024 9:50 PM EST [facility] Creatinine, Urine 185.0 mg/dL LAB CHEMISTRY METHOD 05/29/2024 9:50 PM [facility] Urine Urine specimen obtained by clean catch procedure / Unknown Non-blood Collection / Unknown 05/29/2024 9:13 PM EST 05/29/2024 9:18 PM EST Marlene Fernandez [facility] URINE ORDERABLES Final Resu lt Performing Organization Address [facility] Co de Phone Number [facility] [address] [place] [address], * Creatinine (05/29/2024 9:02 PM EST) Creatinine 0.77 0.50 - 1.10 mg/dL LAB CHEMISTRY METHOD 05/29/2024 9:37 PM EST [facility] eGFR 110 >=60 mL/min/1. 73m2 LAB CHEMISTRY METHOD 05/29/2024 9:37 PM EST [facility] Comment:Calculation based on the??Chronic Kidney Disease Epidemiology Collaboration (CKD-EPI) equation refit??without adjustment for race. Blood Venous blood specimen / Unknown Venipuncture / Unknown 05/29/2024 9:02 PM EST 05/29/2024 9:06 PM EST Marlene Fernandez [facility] BLOOD ORDERABLES Final Resu lt Performing Organization Address [facility]/ZIP Co de Phone Number [facility] [address] [place] [address], * BUN (05/29/2024 9:02 PM EST) BUN 5 5 - 25 mg/dL LAB CHEMISTRY METHOD 05/29/2024 9:37 PM EST [facility] Blood Venous blood specimen / Unknown Venipuncture / Unknown 05/29/2024 9:02 PM EST 05/29/2024 9:06 PM EST Marlene Fernandez [facility] BLOOD ORDERABLES Final Resu lt [facility] [address] [place] [address], [place] [phone] * Alanine aminotransferase (05/29/2024 9:02 PM EST) ALT (SGPT) 10 10 - 60 unit/L LAB CHEMISTRY METHOD 05/29/2024 9:37 PM EST [facility] Blood Venous blood specimen / Unknown Venipuncture / Unknown 05/29/2024 9:02 PM EST 05/29/2024 9:06 PM EST Marlene SANTIAGO LAB BLOOD ORDERABLES Final Resu lt Performing Organization Address [facility]/ZIP Co de Phone Number [facility] [address] [place] [address], [place] [phone] * Aspartate aminotransferase (05/29/2024 9:02 PM EST) AST (SGOT) 10 10 - 42 unit/L LAB CHEMISTRY METHOD 05/29/2024 9:37 PM EST [facility] Blood Venous blood specimen / Unknown Venipuncture / Unknown 05/29/2024 9:02 PM EST 05/29/2024 9:06 PM EST us Marlene SANTIAGO LAB BLOOD ORDERABLES Final Resu lt [facility] [address] [place] [address], [place] [phone] * Epidural Block (05/29/2024 4:17 PM EST) Collins Quiroga MD - 05/29/2024 4:17 PM EST Collins Boudreaux MD ? 05/29/2024 ??4:44 PM Epidural Block Patient location during procedure: OB Start time: 05/29/2024 4:17 PM End time: 05/29/2024 4:32 PM Reason for block: labor epidural Staffing Performed: anesthesiologist Anesthesiologist: Collins Boudreaux MD Performed by: Collins Boudreaux MD Authorized by: Collins Boudreaux MD ?? Preanesthetic Checklist Completed: patient identified, IV checked, risks and benefits discussed, surgical consent, monitors and equipment checked, pre-op evaluation and timeout performed Epidural Patient Position: sitting Monitoring: heart rate, contracts law professor, continuous pulse ox and NIBP Approach: midline Vertebral Space: lumbar (1-5) Needle Needle type: Tuohy Needle gauge: 18 G Needle length: 8.5 cm Needle insertion depth: 5 cm Catheter at skin depth: 10 cm Test dose: negative and lidocaine 1.5% with epinephrine 1-to-200,000 Assessment Sensory level: T10 Events: negative aspiration for heme and no paresthesia on injection Additional Notes Skin infiltrated with local anesthetic. Loss of resistance technique used as above. Prior to any local anesthetic dosing negative aspiration for heme and CSF. No dyesthesias appreciated during procedure. Catheter taped and secured after negative test dose. Collins Boudreaux MD ANESTHESIA ORDERABLES Final Res ult * Treponema pallidum antibody with reflex to RPR and particle agglutination (05/29/2024 9:00 AM EST) T. Pallidum Antibodies Negative Negative LAB CHEMISTRY METHOD 05/29/2024 10:01 AM EST [facility] Blood Venous blood specimen / Unknown Venipuncture / Unknown 05/29/2024 9:00 AM EST 05/29/2024 9:12 AM EST us Amado Vega MD LAB BLOOD ORDERABLES Fi nal Result [facility] [address] [place] [address], [place] [phone] * (ABNORMAL) CBC auto differential (05/29/2024 9:00 AM EST) WBC 9.9 4.8 - 10.8 K/mcL LAB HEMETOLOGY METHOD 05/29/2024 9:19 AM EST [facility] RBC 3.80 3.80 - 4.80 M/mcL LAB HEMETOLOGY METHOD 05/29/2024 9:19 AM [facility] Hemoglobin 11.3(L) 11.5 - 16.0 g/dL LAB HEMETOLOGY METHOD 05/29/2024 9:19 AM [facility] Hematocrit 34.1(L) 35.0 - 47.0 % LAB HEMETOLOGY METHOD 05/29/2024 9:19 AM EST [facility] MCV 90.9 79.0 - 98.0 FL LAB HEMETOLOGY METHOD 05/29/2024 9:19 AM [facility] MCH 30.1 27.0 - 32.0 pcg LAB HEMETOLOGY METHOD 05/29/2024 9:19 AM EST [facility] MCHC 33.1 32.0 - 37.0 g/dL LAB HEMETOLOGY METHOD 05/29/2024 9:19 AM [facility] RDW 14.5 11.0 - 15.0 % LAB HEMETOLOGY METHOD 05/29/2024 9:19 AM [facility] Platelets 240 130 - 400 K/mcL LAB HEMETOLOGY METHOD 05/29/2024 9:19 AM [facility] MPV 10.6 7.0 - 11.0 FL LAB HEMETOLOGY METHOD 05/29/2024 9:19 AM [facility] NRBC 0.0 <1.0 % LAB HEMETOLOGY METHOD 05/29/2024 9:19 AM [facility] NRBC Absolute 0.00 <0.10 K/mcL LAB HEMETOLOGY METHOD 05/29/2024 9:19 AM [facility] Neutrophils Relative 79.3 % LAB HEMETOLOGY METHOD 05/29/2024 9:19 AM [facility] Lymphocytes Relative 11.1 % LAB HEMETOLOGY METHOD 05/29/2024 9:19 AM [facility] Monocytes Relative 7.9 % LAB HEMETOLOGY METHOD 05/29/2024 9:19 AM [facility] Eosinophils Relative 1.0 % LAB HEMETOLOGY METHOD 05/29/2024 9:19 AM [facility] Basophils Relative 0.3 % LAB HEMETOLOGY METHOD 05/29/2024 9:19 AM [facility] Immature Granulocytes Relative 0.4 % LAB HEMETOLOGY METHOD 05/29/2024 9:19 AM [facility] Neutrophils Absolute 7.82(H) 1.50 - 7.00 K/mcL LAB HEMETOLOGY METHOD 05/29/2024 9:19 AM [facility] Lymphocytes Absolute 1.09 1.00 - 5.00 K/mcL LAB HEMETOLOGY METHOD 05/29/2024 9:19 AM [facility] Monocytes Absolute 0.78 0.20 - 1.00 K/mcL LAB HEMETOLOGY METHOD 05/29/2024 9:19 AM [facility] Eosinophils Absolute 0.10 0.00 - 0.50 K/mcL LAB HEMETOLOGY METHOD 05/29/2024 9:19 AM [facility] Basophils Absolute 0.03 0.00 - 0.20 K/mcL LAB HEMETOLOGY METHOD 05/29/2024 9:19 AM EST [facility] Immature Granulocytes Absolute 0.04(H) 0.00 - 0.03 K/[facility] LAB HEMETOLOGY METHOD 05/29/2024 9:19 AM EST [facility] Blood Venous blood specimen / Unknown Venipuncture / Unknown 05/29/2024 9:00 AM EST 05/29/2024 9:12 AM EST us Amado Vega MD LAB BLOOD ORDERABLES Fi nal Result [facility] [address] [place] [address], [place] [phone] * Type and screen (05/29/2024 9:00 AM EST) ABO Group O 05/29/2024 11:21 AM EST [facility] Rh Type Positive 05/29/2024 11:21 AM EST [facility] Antibody Screen Negative 05/29/2024 11:21 AM EST [facility] Blood Venous blood specimen / Unknown Venipuncture / Unknown 05/29/2024 9:00 AM EST 05/29/2024 9:12 AM EST Amado Vega MD LAB BLOOD BANK TEST ORD ERABLES Final Result [facility] [address] [place] [address], [place] [phone] * US OB 14+ Wks Single or First Gestation (05/08/2024 11:13 AM EST) Anatomical Region Laterality Modality Body Ultrasound 05/08/2024 9:20 AM EST Impressions 05/08/2024 4:07 PM EST Recommendations/Plan: No additional ultrasounds have been scheduled. Follow up as clinically indicated. Narrative 05/08/2024 4:07 PM EST OBSTETRICS REPORT ?(Signed Final 05/08/2024 04:07 pm) PATIENT INFO: ID #: ? [id number] ? : ??[birth year] (23 yrs)(F) Name: ? CRISTIANE VILLALOBOS ? Visit Date: 05/08/2024 09:20 am PERFORMED BY: Attending: ?Dianna Wilde MD Performed By: ? Kaz Alvarez RDMS Referred By: ?Donte SANTIAGOM Ref. Address: ? [address] ? [place] [address] Location: ? [facility] SERVICE(S) PROVIDED: OB Complete ??>=14 weeks ? [address] INDICATIONS: Maternal care for other known or suspected ? O36.5930 poor growth, third trimester, crawford Uterine size-date discrepancy, third trimester O26.843 36 weeks gestation of ?Z3A.36 TECHNIQUE/SCAN QUALITY: Technique: ?? Transabdominal Scan ? Satisfactory Quality: OB HISTORY: : ?1 VITAL SIGNS: Weight (lb) ?? Height ?BMI 164 ? 5'6 ?26.47 EVALUATION: Number Of Fetuses: ? 1 Heart Rate(bpm): ?? 152 Cardiac Activity: ?Observed Presentation: ?Cephalic Placenta Location: ?Anterior Appearance: ?Grade 2 Relation to CVX: ? No previa Amniotic Fluid ANOOP FV: ?Within Normal Limits RUQ(cm) ? RLQ(cm) ?LLQ(cm) 3.43 ?4.07 ? 3.45 ANOOP Sum(cm) ? %Tile ? Largest Pocket(cm) 10.95 ? 29 ?4.07 Comment: ?A >2 x 2 cm pocket of fluid is noted. BIOMETRY: BPD: ?85.2 ??mm ? G.Age: ?? 34w 2d ?13 ??% HC: ?312.5 ??mm ? G.Age: ?? 35w 0d ? 5 ??% AC: ?322.9 ??mm ? G.Age: ?? 36w 1d ?63 ??% FL: ? 67.9 ??mm ? G.Age: ?? 34w 6d ?17 ??% CER: ?45.6 ??mm ? G.Age: ?? N/A ? 81 ??% LV: ?3.1 ??mm CM: ?5.2 ??mm CI: ? 74.84 ??% ? 70 - 86 FL/HC: ? 21.7 ??% ? 20.1 - 22.1 HC/AC: ? 0.97 ?0.93 - 1.11 FL/BPD: ?79.7 ??% ? 71 - 87 FL/AC: ? 21.0 ??% ? - Est. FW: ?2702 ??gm ? 5 lb 15 oz ? 35 ??% GESTATIONAL AGE: LMP: ? 34w 4d ?Date: ??09/09/23 ?BRENDAN: ?? 06/15/24 U/S Today: ? 35w 1d ?BRENDAN: ?? 06/11/24 Best: ?36w 1d ?? Det. By: ??Previous ? BRENDAN: ?? 06/04/24 ? Ultrasound STANDARD ANATOMY: Cranium: ?Normal appearance Ventricles: ? Normal appearance Cerebellum: ? Normal appearance Posterior Fossa: ?Normal appearance Heart: ?Suboptimal views Stomach: ?Normal appearance Abdominal Wall: ? Suboptimal views Kidneys: ?Normal appearance Bladder: ?Normal appearance Spine: ?Normal appearance of vertebrae COMMENTS: Ms. Villalobos is being seen for assessment of growth for size less than dates. - Her medical history is not contributory. - Ultrasound findings: The estimated weight is 2702 grams, at the 35th percentile. The amniotic fluid index is 10.95 cm, appropriate for the gestational age. - Dianna Wilde MD Electronically Signed Final Report ?? 05/08/2024 04:07 pm Procedure Note Dianna Wilde MD - 05/08/2024 OBSTETRICS REPORT (Signed Final 05/08/2024 04:07 pm) PATIENT INFO: ID #: [id number] : [birth year] (23 yrs)(F) Name: CRISTIANE VILLALOBOS Visit Date: 05/08/2024 09:20 am PERFORMED BY: Attending: Dianna Wilde MD Performed By: Kaz Alvarez [facility] Referred By: Donte Morris [facility] Ref. Address: [address] [place] [address] Location: [facility] SERVICE(S) PROVIDED: OB Complete >=14 weeks [address] INDICATIONS: Maternal care for other known or suspected O36.5930 poor growth, third trimester, crawford Uterine size-date discrepancy, third trimester O26.843 36 weeks gestation of Z3A.36 TECHNIQUE/SCAN QUALITY: Technique: Transabdominal Scan Satisfactory Quality: OB HISTORY: : 1 VITAL SIGNS: Weight (lb) Height BMI 164 5'6 26.47 EVALUATION: Number Of Fetuses: 1 Heart Rate(bpm): 152 Cardiac Activity: Observed Presentation: Cephalic Placenta Location: Anterior Appearance: Grade 2 Relation to CVX: No previa Amniotic Fluid ANOOP FV: Within Normal Limits RUQ(cm) RLQ(cm) LLQ(cm) 3.43 4.07 3.45 ANOOP Sum(cm) %Tile Largest Pocket(cm) 10.95 29 4.07 Comment: A >2 x 2 cm pocket of fluid is noted. BIOMETRY: BPD: 85.2 mm G.Age: 34w 2d 13 % HC: 312.5 mm G.Age: 35w 0d 5 % AC: 322.9 mm G.Age: 36w 1d 63 % FL: 67.9 mm G.Age: 34w 6d 17 % CER: 45.6 mm G.Age: N/A 81 % LV: 3.1 mm CM: 5.2 mm CI: 74.84 % 70 - 86 FL/HC: 21.7 % 20.1 - 22.1 HC/AC: 0.97 0.93 - 1.11 FL/BPD: 79.7 % 71 - 87 FL/AC: 21.0 % 20 - 24 Est. FW: 2702 gm 5 lb 15 oz 35 % GESTATIONAL AGE: LMP: 34w 4d Date: 09/09/23 BRENDAN: 06/15/24 U/S Today: 35w 1d BRENDAN: 06/11/24 Best: 36w 1d Det. By: Previous BRENDAN: 06/04/24 Ultrasound STANDARD ANATOMY: Cranium: Normal appearance Ventricles: Normal appearance Cerebellum: Normal appearance Posterior Fossa: Normal appearance Heart: Suboptimal views Stomach: Normal appearance Abdominal Wall: Suboptimal views Kidneys: Normal appearance Bladder: Normal appearance Spine: Normal appearance of vertebrae COMMENTS: Ms. Villalobos is being seen for assessment of growth for size less than dates. - Her medical history is not contributory. - Ultrasound findings: The estimated weight is 2702 grams, at the 35th percentile. The amniotic fluid index is 10.95 cm, appropriate for the gestational age. - Dianna Wilde MD Electronically Signed Final Report 05/08/2024 04:07 pm IMPRESSION: Recommendations/Plan: No additional ultrasounds have been scheduled. Follow up as clinically indicated. us Radhika Oliva CNM IMG OB US PROCEDURES Final Result * HIV Screening (11/22/2023) Pathologist [facility] HIV Screening Abstracted us Historical Provider HEALTH MAINTENANCE Final Result * Hepatitis C Screening (11/22/2023) [facility] Hepatitis C Screening Abstracted us Historical Provider HEALTH MAINTENANCE Final Result from Last 3 Months or Most Recently Relevant to Health Maintenance Insurance MEDICAID - [place] Advance Directives * Full Code - Default (Latest Code Status on File) Date Activated Date Inactivated Comments 05/30/2024 3:22 AM 06/01/2024 6:29 PM * Full Code - Confirmed Date Activated Date Inactivated Comments 05/29/2024 8:54 AM 05/30/2024 3:22 AM * Full Code - Default Date Activated Date Inactivated Comments 05/28/2024 4:29 AM 05/28/2024 7:04 AM This is order is used when code status has not been discussed with the patient, or code status is otherwise unknown/unconfirmed To update the patient's code status, place a code status order. Do not modify or discontinue any currently active code status orders. * Full Code - Default Date Activated Date Inactivated Comments 03/12/2024 10:07 AM 03/13/2024 1:15 AM This is o rder is used when code status has not been discussed with the patient, or code status is otherwise unknown/unconfirmed To update the patient's code status, place a code status order. Do not modify or discontinue any currently active code status orders. Care Teams Ambulatory Nurse Relationship Specialty Start Date End Date Physician, No Pcp PCP - General 02/26/24
--- OUTSIDE RECORDS SUMMARY | 2024-07-21 12:06 | XMS_ITS | Encounter Summary ---
Author Organization [employer] Address [address] [facility] 7[address] [place] [address] Care Team Providers Care Float Phlebotomist Name Role Phone Meena White DO Primary Care Provider + [phone] Encounter Details Date Type Department Care Team (Latest Contact Info) Description 07/21/2024 Travel Social History Tobacco Use Types Packs/Day Years Used Date Smoking Tobacco: Never Smokeless Tobacco: Never Alcohol Use Standard Drinks/Week Comments Never 0 (1 standard drink = 0.6 oz pur e alcohol) Depression Answer Date Recorded Patient Health Questionnaire-9 Score 0 05/20/2024 Patient Health Questionnaire-9 Score 0 05/20/2024 Last PHQ-9: Questionnaire Data Not on file 0 05/20/2024 Housing Stability Answer Date Recorded What is [...] off services in your home? No 03/13/2024 Depression Answer Date Recorded Patient Health Questionnaire-2 Score 0 05/20/2024 Internet Access Answer Date Recorded Internet Access Q1 Yes 03/13/2024 Internet Access Q2 Not on file 03/13/2024 Comments No Sex and Gender Information Value Date Recorded Sex Assigned at Female 02/20/2022 2:49 PM EST Legal Sex Female 2:48 PM EST Gender Identity Female 02/20/2022 2:49 PM EST Sexual Orientation Choose not to disclose 2022 6:47 PM EST documented as of this encounter Plan of Treatment Not on file documented as of this encounter Visit Diagnoses Not on filedocumented in this encounter Additional Health Concerns Assessment Noted Time PHQ-9 Depression Total Score: 0 05/20/19 9:18 AM EST documented as of this encounter Care Teams Float Phlebotomist Relationship Specialty Start Date End Date Meena White DO [address] [place] [address] PCP - General Family Medicine 05/20/24 Dyan Mays Fuel Truck Driver 03/23/24 documented as of this encounter
--- OUTSIDE RECORDS SUMMARY | 2024-07-21 12:06 | XMS_ITS | Encounter Summary ---
Author Organization [employer] Address [address] [facility] 7 [place] [address] Care Team Providers Care Mop Maker Name Role Phone Meena White DO Primary Care Provider + [phone] Reason for Visit * Reason Onset Date Comments Care Management 07/21/2024 C3CM follow up c all Encounter Details Date Type Department Care Team ([facility] st Contact Info) Description 07/21/2024 Telephone [facility] MEDICINE [address] [place] [address] Meena White DO [address] [place] [address] Care Management (C3CM follow up call) Social History Tobacco Use Types [...] * Telephone Encounter - Dyan Mays - 07/21/2024 11:05 AM EDT NANCY Mays RN placed outbound call to patient. Patient's name, and address confirmed.Patient states is doing well with no recent illnesses or emergency room visits. Patient attended pcp appointment today and Digital Traffic Coordinator reviewed. Patient with right shoulder pain since delivery and ordered for xrays, patient did complete. Patient reports that pcp will order muscle relaxant x [address] referral for physical therapy. Patient attended appointment and is cleared, she healed well. Patient will follow up for yearly papsmear. No further questions or concerns. CM reinforced direct contact information or CHW for any additional questions or concerns. Education [facility]. Patient provided with after-hours line for [facility], , which offer night time triage service and option to transfer to alterations expert provider if needed. Patient verbalizes understanding, and able to repeat back to senior mortgage underwriter. A follow up call will be placed within 10 days, patientagrees with plan. documented in this encounter Plan of Treatment Not on file documented as of this encounter Visit Diagnoses Not on filedocumented in this encounter Additional Health Concerns Assessment Noted Time PHQ-9 Depression Total Score: 0 05/20/19 25 9:18 AM EST documented as of this encounter Care Teams Mop Maker Relationship Specialty Start Date End Date Meena White DO [address] [place] [address] PCP - General Family Medicine 05/20/24 Dyan Mays Digital Traffic Coordinator 03/23/24 documented as of this encounter
--- OUTSIDE RECORDS SUMMARY | 2024-07-21 12:06 | XMS_ITS | Encounter Summary ---
Author Organization [employer] Address [address] [facility] 7t [place] [address] Care Team Providers Care Case Maker Name Role Phone Meena White DO Primary Care Provider + [phone] Encounter Details Date Type Department Care Team ([facility] st Contact Info) Description 07/21/2024 Orders Only [facility] MEDICINE [address] [place], [place] [phone] Meena White DO [address] [place] [address] Social History Tobacco Use Types Packs/Day Years [...] on file documented as of this encounter Procedures Procedure Name Priority Date/Time Associated Diagnosis Comments XR CERVICAL SPINE 3V Routine 07/21/2024 10:30 AM EDT documented in this encounter Results * XR CERVICAL SPINE 3V (07/21/2024 10:30 AM EDT) Anatomical Region Laterality Modality Abdomen Radiographic Maribel ging 07/21/2024 10:3 0 AM EDT Narrative 07/21/2024 11:08 AM EDT ?[facility] ?[address] ?[place] [address] ?XRay Report ? Signed ? Patient: Jones,Lillian ?MR#: [id number] ?? [id number] ? : 2000 ?Acct:[id number] ? Age/Sex: 24 / F ?ADM Date: 04/29/25 ? Loc: HO.HHCX ? Attending Dr: Meena White DO ? Ordering Physician: Jurcsak,Meena A DO ?? Date of Service: 07/21/24 ?? Procedure(s): XR cervical spine 3V ?? Accession Number(s): [id number] ? cc: Meena White DO ? EXAMINATION: ?? XR CERVICAL SPINE ? CLINICAL INFORMATION: ?? PAIN ? COMPARISON: ?? None available. ? TECHNIQUE: ?? 3 views of the cervical spine were obtained. ? FINDINGS: ?? Minimal right convex scoliosis, likely positional. Mild straightening ?? of the normal lordosis. ?? No subluxations. ?? No fracture, compression deformity, or suspicious bone lesion. ?? Craniocervical junction and C1-2 articulation are intact and aligned. ?? Facets are normally aligned without subluxation. ?? Disc spaces appear preserved throughout. ? No prevertebral or paravertebral soft tissue abnormalities. ? XR/XR cervical spine 3V ?? IMPRESSION: ?? No acute findings of the cervical spine. Essentially normal examination. ? Electronically signed by: ??Myles Reed MD ??07/21/2024 11:05 AM EDT RP ? Dictated By: ?Myles Reed MD ? Signed By: ?<Electronically signed by Myles Reed MD in OV> ?07/21/24 1105 ? DD/ 1030 ? TD/TT: 07/21/24 1044 ? Legal Billing Coordinator: ? Procedure Note Stacy Meeks - 07/21/[address] [address] XRay Report Signed Patient: Lillian JonesMR#: [id number] : 2000Acct:[id number] Age/Sex: 24 / FADM Date: 07/21/24 Loc: HO.HHCX Attending Dr: Meena White DO Ordering Physician: Meena White DO Date of Service: 07/21/24 Procedure(s): XR cervical spine 3V Accession Number(s): [id number] cc: Meena White DO EXAMINATION: XR CERVICAL SPINE CLINICAL INFORMATION: PAIN COMPARISON: None available. TECHNIQUE: 3 views of the cervical spine were obtained. FINDINGS: Minimal right convex scoliosis, likely positional. Mild straightening of the normal lordosis. No subluxations. No fracture, compression deformity, or suspicious bone lesion. Craniocervical junction and C1-2 articulation are intact and aligned. Facets are normally aligned without subluxation. Disc spaces appear preserved throughout. No prevertebral or paravertebral soft tissue abnormalities. XR/XR cervical spine 3V IMPRESSION: No acute findings of the cervical spine. Essentially normal examination. Electronically signed by: Myles Reed MD 07/21/2024 11:05 AM EDT RP Dictated By: Myles Reed MD Signed By: <Electronically signed by Myles Reed MD in OV> 07/21/24 1105 DD/ 1030 TD/TT: 07/21/24 1044 Legal Billing Coordinator: Meena White DO IMG XR PROCEDURES Final Resu lt documented in this encounter Visit Diagnoses Not on filedocumented in this encounter Additional Health Concerns Assessment Noted Time PHQ-9 Depression Total Score: 0 05/20/19 25 9:18 AM EST documented as of this encounter Care Teams Case Maker Relationship Specialty Start Date End Date Meena White DO [address] [place] [phone] PCP - General Family Medicine 05/20/24 Dyan Mays Studio Model 03/23/24 documented as of this encounter
--- OUTSIDE RECORDS SUMMARY | 2024-07-21 12:06 | XMS_ITS | Clinical Summary ---
Author Organization [employer] Address [address] [facility] 7t [place] [address] Care Team Providers Care Copy Preparer Name Role Phone Meena White Primary Care Provider [phone] Allergies Active Allergy Reactions Criticality Noted Date Comments Shellfish-Derived Products Anaphylaxis High 04/26/2022 Pt does not have an epi pen at moment. Medications EPINEPHrine (Epipen) 0.3 MG/0.3ML injection syringe Inject 0.3 mL (0.3 mg) as directed 1 (one) time for 1 dose. use as directed for allergic reaction and then call 911 1 each 3 05/20/19 25 Active multivitamin () 27-0.8 MG tablet Take 1 tablet by mouth Once per day. 90 tablet 3 07/22/19 25 026 Active multivitamin () 27-0.8 MG tablet Take 1 tablet by mouth Once per day. 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 [facility] site: [address] 2. Delivery site: [facility] 3. Mobile Mommas: 4. Dating criteria: LMP confirmed by 1st trimester ultrasound 5. Blood type: Lab Results Component Value Date BLDTYPE O POSITIVE 11/22/2023 6. Genetic screening: Panorama low risk, Horizon- Negative ; 12/26/2023 AFP negative 6. GBS: Date: pos at 29 weeks 7. FOB name: Jose 8. Plans A. Epidural or other pain management - prefers natural but open B. Labor support identified - Maureen Glass. Tdap - Date: declined, Flu - Date: declined D. Breast or Bottle feed: Breast E. Baby's name - F. Circumcision - na 9. Hospital Course: Encounters Date Type Department Care Team Description 07/21/2024 10:00 AM EDT Office Visit [address] [address] Meena White DO Acute pain of right shoulder (Primary Dx); Healthcare maintenance 07/21/2024 Orders Only [address] [address] Meena White DO 07/21/[address] [address] Meena White DO Care Management (C3CM follow up call) 07/21/2024 Travel 07/10/2024 Patient Outreach [address] [address] Meena White DO Care Coordination (C3CM/SOLE Asencio#1- Follow up call-LVM) 06/22/2024 Patient Outreach [address] [address] Meena White DO Care Coordination (C3NANCY/SOLE Asencio-Follow up call) 06/22/[address] [address] Meena White DO Care Management (C3CM follow up call) 06/22/[address] [address] Meena White DO 06/16/2024 Orders Only [facility] [address] [place] [address] Provider, MD Bolivar 06/05/2024 Population Health Risk Score [facility] (C3) [address] [id number] Provider, Population Health Generic 06/04/2024 Patient Outreach [address] [address] Meena White DO Care Coordination ([facility]/W SOLE Croft- Follow up call) 06/04/[address] [address] Meena White DO Care Management ([facility] follow up call) 05/20/2024 9:00 AM EST Office Visit [address] [address] Meena White DO Routine history and physical examination of adult (Primary Dx); Third trimester ; Shellfish allergy; BMI 25.0-25.9,adult 05/20/2024 Travel 05/19/[address] [address] Dyan Mays Care Management ([facility] follow up call) 05/06/2024 Patient Outreach [address] [address] Meena White DO Pre-visit Planning ((Unable to reach for PVP screening and or LVM)) 04/28/[address] [address] Dyan Mays Care Management ([facility] TC #1-unable to lvm) from Last 3 Months Immunizations Name Administration Dates Next Due Hep B, Unspecified 1998 MMR 06/03/1999 Social History Tobacco Use Types Packs/Day Years Used Date Smoking Tobacco: Never Smokeless Tobacco: Never Tobacco Cessation:Counseling Given: Not Answered Alcohol Use Standard Drinks/Week Comments Never 0 [...] Sign Reading Time Taken Comments Blood Pressure 110/70 07/21/2024 10:00 AM EDT Pulse 82 07/21/2024 10:00 AM EDT Temperature 36.3 ??C (97.3 ??F) 07/21/2024 10:00 AM E DT Respiratory Rate 19 07/21/2024 10:00 AM EDT Oxygen Saturation 96% 07/21/2024 10:00 AM EDT Inhaled Oxygen Concentration - - Weight 66.3 kg (146 lb 2 oz) 07/21/2024 10:00 AM EDT Height 167.6 cm (5' 6 ) 07/21/2024 10:00 AM EDT Body Mass Index 23.59 07/21/2024 10:00 AM EDT Plan of Treatment Health Maintenance Due Date Last Done Comments HIV Screening 1998 Lipid Panel 1998 Hepatitis B Vaccines (2 of 3 - 3-dose series) 1998 1998 Family Planning (PISQ) 2013 HPV Vaccines (1 - 3-dose series) 2013 Hepatitis C Screening 2016 DTaP/Tdap/Td Vaccines (1 - Tdap) 2017 COVID-19 Vaccine (1 - 2023-2 5 season) 2023 Influenza Vaccine (#1) 2023 HPV/Cotest 12/02/2024 Pap Smear 12/02/2024 12/03/2023 SDOH Screening 03/13/2025 03/13/2024 Alcohol/Substance Use Screening 05/20/2025 05/20/2024 Depression Screening 05/20/2025 05/20/2024, 05/20/2024 Tobacco Screening 07/21/2025 07/21/2024 Zoster Vaccines (1 of 2) 2048 RSV Patients and Patients Aged 60 years or older (1 - [...] to 49) Years) Aged Out No longer eligible b [...] SPINE 3V Routine 07/21/2024 10:30 AM EDT XR SHOULDER 2+ VIEWS RIGHT Routine 07/21/2024 10:30 AM EDT Acute pain of right shoulder HM PAP/HPV Routine 12/03/2023 3:47 PM EDT from Last 3 Months or Most Recently Relevant to Health Maintenance Results * XR CERVICAL SPINE 3V (07/21/2024 10:30 AM EDT) Anatomical Region Laterality Modality Abdomen Radiographic Maribel ging 07/21/2024 10:3 0 AM EDT Narrative 07/21/2024 11:08 AM EDT ?[facility] ?[address] ?[place] [address] ?XRay Report ? Signed ? Patient: Lillian Jones ?MR#: [id number] ?? 9636 ? : 2000 ?Acct:[id number] ? Age/Sex: 24 / F ?ADM Date: 07/21/24 ? Loc: HO.HHCX ? Attending Dr: Meena White DO ? Ordering Physician: Meena White DO ?? Date of Service: 07/21/24 ?? Procedure(s): XR cervical spine 3V ?? Accession Number(s): [id number] ? cc: Meena White DO ? EXAMINATION: [...] DD/ 1030 ? TD/TT: 07/21/24 1044 ? Cabin Furnishings Installer: ? Procedure Note Donotuseinterpreter, Image - 07/21/[address] [address] XRay Report Signed Patient: Lillian JonesMR#: [id number] : 2000Acct:[id number] Age/Sex: 24 / FADM Date: 07/21/24 Loc: HO.HHCX Attending Dr: Meena White DO Ordering Physician: Meena White DO Date of Service: 07/21/24 Procedure(s): XR cervical spine 3V Accession Number(s): [id number] cc: Meena White DO EXAMINATION: XR CERVICAL [...] Myles Reed MD 07/21/2024 11:05 AM EDT Dictated By: Myles Reed MD Signed By: <Electronically signed by Myles Reed MD in OV> 07/21/24 1105 DD/ 1030 TD/TT: 07/21/24 1044 Cabin Furnishings Installer: Meena White DO IMG XR PROCEDURES Final Resu lt * XR Shoulder 2+ Views Right (07/21/2024 10:30 AM EDT) Anatomical Region Laterality Modality Upper Extremities, Shoulder Right Radi ographic Imaging 07/21/2024 10:3 0 AM EDT Narrative 07/21/2024 10:55 AM EDT ?[facility] ?[address] ?[place] [address] ?XRay Report ? Signed ? Patient: Jones,Lillian ?MR#: [id number] ?? 9636 ? : 2000 ?Acct:[id number] ? Age/Sex: 24 / F ?ADM Date: 07/21/24 ? Loc: HO.HHCX ? Attending Dr: Meena White DO ? Ordering Physician: Meena White DO ?? Date of Service: 07/21/24 ?? Procedure(s): XR shoulder RT min 2V ?? Accession Number(s): [id number] ? cc: Meena White DO ? EXAMINATION: ?? XR SHOULDER, RIGHT ? CLINICAL INFORMATION: ?? R shoulder pain with intermittent radiation to elbow and neck ? COMPARISON: ?? None available. ? TECHNIQUE: ?? AP external rotation, Grashey, scapular Y, and axillary views of the ?? right shoulder. ? FINDINGS: ?? Normal bone mineralization. No fracture, dislocation, or suspicious ?? bone lesion. Normal alignment. ?? The glenohumeral joint is normal. ?? The AC joint is normal. ?? There is a type II acromion. No undersurface spurring. ?? The subacromial space is preserved. ? Remainder of the soft tissue and bony structures appear normal. ? XR/XR shoulder RT min 2V ?? IMPRESSION: ?? Normal right shoulder. ? Electronically signed by: ??Myles Reed MD ??07/21/2024 10:52 AM EDT RP ? Dictated By: ?Myles Reed MD ? Signed By: ?<Electronically signed by Myles Reed MD in OV> ?07/21/24 1052 ? DD/ 1030 ? TD/TT: 07/21/24 1044 ? Cabin Furnishings Installer: ? Procedure Note Stacy Meeks - 07/21/2024 [facility] [address] [place] [address] XRay Report Signed Patient: KarenBethany#: [id number] : 2000Acct:[id number] Age/Sex: 24 / FADM Date: 07/21/24 Loc: HO.HHCX Attending Dr: Meena White DO Ordering Physician: Meena White DO Date of Service: 07/21/24 Procedure(s): XR shoulder RT min 2V Accession Number(s): [id number] cc: Meena White DO EXAMINATION: XR SHOULDER, RIGHT CLINICAL INFORMATION: R shoulder pain with intermittent radiation to elbow and neck COMPARISON: None available. TECHNIQUE: AP external rotation, Grashey, scapular Y, and axillary views of the right shoulder. FINDINGS: Normal bone mineralization. No fracture, dislocation, or suspicious bone lesion. Normal alignment. The glenohumeral joint is normal. The AC joint is normal. There is a type II acromion. No undersurface spurring. The subacromial space is preserved. Remainder of the soft tissue and bony structures appear normal. XR/XR shoulder RT min 2V IMPRESSION: Normal right shoulder. Electronically signed by: Myles Reed MD 07/21/2024 10:52 AM EDT RP Dictated By: Myles Reed MD Signed By: <Electronically signed by Myles Reed MD in OV> 07/21/24 1052 DD/ 1030 TD/TT: 07/21/24 1044 Cabin Furnishings Installer: Meena White DO IMG XR PROCEDURES Final Resu lt * HM PAP/HPV (12/03/2023 3:47 PM EDT) Historical Provider HEALTH MAINTENANCE Final Result from Last 3 Months or Most Recently Relevant to Health Maintenance Insurance [facility] C[facility] C[facility] Care Teams Copy Preparer Relationship Specialty Start Date End Date Meena White DO [address] [place] [address] PCP - General Family Medicine 05/20/24 Dyan Mays Showcase Trimmer 03/23/24
--- OUTSIDE RECORDS SUMMARY | 2024-07-21 12:06 | XMS_ITS | Encounter Summary ---
Author Organization [employer] Address [address] [facility] 7t [place] [address] Care Team Providers Care Manager Mortgage Name Role Phone ZurdoMeena mayberry Primary Care Provider + [phone] Encounter Details Date Type Department Care Team (Late st Contact Info) Description 06/16/2024 Orders Only [facility] [address] [place], [place] [phone] ProviderBolivar MD Social History Tobacco Use Types Packs/Day Years [...] Procedure Name Priority Date/Time Associated Diagnosis Comments HM PAP/HPV Routine 12/03/2023 3:47 PM EDT documented in this encounter Results * HM PAP/HPV (12/03/2023 3:47 PM EDT) Historical Provider HEALTH MAINTENANCE Final Result documented in this encounter Visit Diagnoses Not on filedocumented in this encounter Additional Health Concerns Assessment Noted Time PHQ-9 Depression Total Score: 0 05/20/19 25 9:18 AM EST documented as of this encounter Care Teams Manager Mortgage Relationship Specialty Start Date End Date Meena White DO [address] [place] [address] PCP - General Family Medicine 05/20/24 Dyan Mays Hazardous Substances Engineer 03/23/24 documented as of this encounter
--- OUTSIDE RECORDS SUMMARY | 2024-07-21 12:06 | XMS_ITS | Data Portability ---
Author Organization [facility]YAAN Gray s, [address] Address [address] [place] [address] Assessment No assessment recorded. Plan of Treatment Reminders Order Date Submit Date Provider Last Modified By Organization Details Last Modified Time Details Appointments None recorded. Lab herpes simplex, culture, unspecified specimen 2022 023 [employer] [facility], [address] [place] [address], [address], 3 14:06:32 urinalysis, dipstick 2022 023 [email or web address] 20995[facility], [address] [place] [address], [phone], 3 12:21:59 test, urine [email or web address] [place] [address], [address] [place] [address], [phone], 3 12:21:59 culture, urine 2022 023 DEDRICK [facility]), [address] [place] [address], [address], 3 06:07:30 vaginal pathogens panel, CARLIE+probe, vaginal fluid 2022 023 [employer] [facility]), [address] [place] [address], [address], 3 06:07:29 Referral None recorded. Procedures None recorded. Surgeries None recorded. Imaging None recorded. Medication Orders Valtrex 1 gram tablet 2022 023 [id number], [address] [place], [address], 12:22:01 Macrobid 100 mg capsule 2022 023 [facility][id number], [address] [place], [address], 12:22:01 Patient TargetsNo targets recorded. Patient Instructions Encounter Date Encounter Id Patient Instructions Last Modified By Organization Details Last Modified Time 07/22/2022 [id number] We recommend you get a repeat urinalysis [...] - 2 score abnormal Not Available [facility] ([facility]) [address] [place], [address], 07/24/2022 06:07:29 07/23/1907/23/2022 NUSWA B VAGIN ITIS PLUS (VG+) bvab 2 HIGH - 2 score abnormal Not Available [facility] ([facility]) [address] [facility], [place], [address], 07/24/2022 06:07:29 07/23/1907/23/2022 NUSWA B VAGIN ITIS [...] Drug Admin istra tion. Not Available [facility] ([facility]) [address] [place], [address], 07/24/2022 06:07:29 07/23/19 23 07/23/2022 NUSWA B VAGIN ITIS PLUS (VG+) attila albicans, CARLIE NEGATI VE negati ve Not Available [facility] ([facility]) [address] [place], [address], 07/24/2022 06:07:29 07/23/19 23 07/23/2022 NUSWA B VAGIN ITIS PLUS (VG+) attila glabrata, CARLIE NEGATI VE negati ve Not Available [facility] ([facility]) [address] [place], [address], 07/24/2022 06:07:29 07/23/19 23 07/24/2022 NUSWA B VAGIN ITIS PLUS (VG+) trich vag by CARLIE NEGATI VE negati ve Not Available [facility] ([facility]) [address] [place], [address], 07/24/2022 06:07:29 07/23/19 23 07/24/2022 NUSWA B VAGIN ITIS PLUS (VG+) chlamydia trachomatis, CARLIE NEGATI VE negati ve Not Available [facility] ([facility]) [address] [facility], [place], [address], 07/24/2022 06:07:29 07/23/19 23 07/24/2022 NUSWA B VAGIN ITIS PLUS (VG+) neisseria gonorrhoeae, CARLIE NEGATI VE negati ve Not Available [facility] ([facility]) [address] [facility], [place], [address], 07/24/2022 06:07:29 07/23/19 23 07/24/2022 URINE CULTU RE, ROUTI NE urine culture, routine FINAL REPORT Not Available [facility] ([facility]) [address] [facility], [place], [address], 07/24/2022 06:07:30 07/23/19 23 07/24/2022 URINE CULTU RE, ROUTI NE result 1 NO GROWTH Not Available [facility] ([facility]) [address] [facility], [place], [address], 07/24/2022 06:07:30 07/23/19 23 07/25/2022 HSV CULTU RE AND TYPIN G hsv culture/type COMMEN T abnormal Posit fátima for Herpe s simpl ex virus type- 2. Typin g was confi rmed by monoc lonal antib elisha micro scopi c immun ofluo resce nce. Not Available [facility] ([facility]) [address] [facility], [place], [address], 07/25/2022 14:06:32 07/23/19 23 07/22/2022 pregn analilia test, urine Unknown Analyte Normal = Negati ve Not Available chano [address], [address], 07/22/2022 11:48:35 07/23/19 23 07/22/2022 pregn analilia test, urine Unknown Analyte negati ve Not Available chico pe [address], [place], [address], 07/22/2022 11:48:35 07/23/19 23 07/22/2022 urina lysis , dipst ick Unknown Analyte Normal = light yellow Not Available 2099chano hale [address], [place], [address], 07/22/2022 11:48:29 07/23/19 23 07/22/2022 urina lysis , dipst ick Unknown Analyte Yellow Not Available [address] [place], [place] [address]abram [address], [place], [address], 07/22/2022 11:48:29 07/23/19 23 07/22/2022 urina lysis , dipst ick Unknown Analyte Normal = clear Not Available chano hale [address], [place], [address], 07/22/2022 11:48:29 07/23/19 23 07/22/2022 urina lysis , dipst ick Unknown Analyte Slight ly Cloudy Not Available 2099chano hale [address], [place], [address], 07/22/2022 11:48:29 07/23/19 23 07/22/2022 urina lysis , dipst ick Unknown Analyte Normal = negati ve Not Available chano hale [address], [place], [address], 07/22/2022 11:48:29 07/23/19 23 07/22/2022 urina lysis , dipst ick Unknown Analyte Normal = Negati ve Not Available 2099chano hale [address], [place], [address], 07/22/2022 11:48:29 07/23/19 23 07/22/2022 urina lysis , dipst ick Unknown Analyte Normal = Negati ve Not Available chano hale [address], [place], [address], 07/22/2022 11:48:29 07/23/19 23 07/22/2022 urina lysis , dipst ick Unknown Analyte Negati ve Not Available chano hale [address], [place], [address], 07/22/2022 11:48:29 07/23/19 23 07/22/2022 urina lysis , dipst ick Unknown Analyte Negati ve Not Available chano hale [address], [place], [address], 07/22/2022 11:48:29 07/23/19 23 07/22/2022 urina lysis , dipst ick Unknown Analyte Negati ve Not Available chano hale [address], [place], [address], 07/22/2022 11:48:29 07/23/1907/22/2022 urina lysis , dipst ick Unknown Analyte Normal = 1.010, 1.015, 1.020 Not Available chano hale [address], [place], [address], 07/22/2022 11:48:29 07/23/19 23 07/22/2022 urina lysis , dipst ick Unknown Analyte 1.025 Not Available [address], [place], [address], 07/22/2022 11:48:29 07/23/19 23 07/22/2022 urina lysis , dipst ick Unknown Analyte Normal = Negati ve Not Available chano hale [address], [place], [address], 07/22/2022 11:48:29 07/23/19 23 07/22/2022 urina lysis , dipst ick Unknown Analyte Small Not Available mary [address], [place], [address], 07/22/2022 11:48:29 07/23/19 23 07/22/2022 urina lysis , dipst ick Unknown Analyte Normal = 6.5, 7.0, 7.5, 8.0 Not Available chano [address], [place], [address], 07/22/2022 11:48:29 07/23/1907/22/2022 urina lysis , dipst ick Unknown Analyte 6.0 Not Available [address], [place], [address], 07/22/2022 11:48:29 07/23/19 23 07/22/2022 urina lysis , dipst ick Unknown Analyte Normal = Negati ve Not Available chano [address], [place], [address], 07/22/2022 11:48:29 07/23/19 23 07/22/2022 urina lysis , dipst ick Unknown Analyte Negati ve Not Available chano [address], [place], [address], 07/22/2022 11:48:29 07/23/19 23 07/22/2022 urina lysis , dipst ick Unknown Analyte Normal = 0.2, 1.0 Not Available chano [address], [place], [address], 07/22/2022 11:48:29 07/23/19 23 07/22/2022 urina lysis , dipst ick Unknown Analyte 0.2 E.U./d L Not Available chano hale [address], [place], [address], 07/22/2022 11:48:29 07/23/19 23 07/22/2022 urina lysis , dipst ick Unknown Analyte Normal = Negati ve Not Available 2099chano hale [address], [place], [address], 07/22/2022 11:48:29 07/23/19 23 07/22/2022 urina lysis , dipst ick Unknown Analyte Negati ve Not Available 2099chano [address], [place], [address], 07/22/2022 11:48:29 07/23/19 23 07/22/2022 urina lysis , dipst ick Unknown Analyte Normal = Negati ve Not Available [address] [place] [address], [place], [address], 07/22/2022 11:48:29 07/23/19 23 07/22/2022 urina lysis , dipst ick Unknown Analyte Small Not Available [address] [place] [address], [place], [address], 07/22/2022 11:48:29 Result Notes None recorded. Problems Name Problem SNOMED Code Status Onset Date Resolution Date Notes Provider Name and Address Organization Details Recorded Time Heart murmur 13753170 Active 023 AYAAN Holbrook - [facility] [...] [degF] 113 mm[Hg] 76 mm[Hg] DANIEL KUO Stratus5 3 11:51:55 Social History Question Answer Notes LastModified by Organizat ion Details LastModified Time Tobacco Smoking Status Never Smoker DANIEL barraza PA [facility] 07/22/2022 11:50:34 What Is Your Level Of Alcohol Consumption? Occasional [email or web address] Information not available 07/22/2022 Do You Use Any Illicit Or Recreational Drugs? No [email or web address] Information not available 07/22/2022 Have You Recently Traveled Abroad? Yes DR- 06/20-07/10 [email or web address] Information not available 07/22/2022 Do You Or Have You Ever Used Any Other Forms Of Tobacco Or Nicotine? No [email or web address] Information not available 07/22/2022 Sex: Unknown Functional Status None recorded. Mental Status None recorded. Family History Relationship Description Onset Age of this Age Resolved Age Notes LastModified by Organization Details LastModified Time Father No current problems or disability [email or web address] Not available 07/22 11:50:23 Mother No current problems or disability [email or web address] Not available 07/22 11:50:23 Medical History No medical history recorded. Gynecological HistoryNo gynecological history recorded. Obstetrics History GPAL:G 0 P 0 0 0 0 Past Encounters Encounter ID Performer Location Encounter Start Date Encounter Closed Date Diagnosis/Indication Diagnosis SNOMED-CT Code Diagnosis ICD10 Code Diagnosis Note [id number] [address] [address] 09/19/2021 14:15:21 09/19/2021 15:57:43 [id number] [address] [place] [address] 05/04/2020 16:05:56 05/04/2020 16:18:14 [id number] [facility] Alber[facility] [address] [place] [address] 07/22/2022 11:39:36 07/22/2022 12:24:09 Acute urinary tract infection 121508962 N39.0 Genital he rpes simplex 85224901 A60.9 Acute vaginitis 40677409 N76.0 Health Concerns Section Related Observation LastModified by Organization Detai ls LastModified Time None Recorded Concern Status LastModified by Organization Details LastModified Time None Recorded Advance Directives Directive None Recorded Payers Encounter Date Sequence Insurance Name Policy Number Policy Card Covered Member ID Card Member ID Guarantor Name 07/22/2022 1 [place] [facility] [id number] [facility] Notes Date Note Type Note Provider Name [...] Alberto NP [address] [place], [address], [place] - [facility] 07/29/2022 18:52:30 OBGyn Episode No OBEpisode recorded.
--- OUTSIDE RECORDS SUMMARY | 2024-07-21 12:06 | XMS_ITS | Encounter Summary ---
Author Organization [employer] Address [address] [facility] 7[address] [place] [address] Care Team Providers Care Insurance Adjustor Name Role Phone Meena White DO Primary Care Provider + [phone] Encounter Details Date Type Department Care Team ([facility] st Contact Info) Description 07/21/2024 10:00 AM EDT Office Visit [facility] [address] [place] [address] Meena White DO [address] [place] [address] Acute pain of right shoulder (Primary Dx); Healthcare maintenance Social History Tobacco Use Types Packs/Day Years [...] PM EST documented as of this encounter Last Filed [...] Mass Index 23.59 07/21/2024 10:00 AM EDT documented in this encounter Plan of Treatment Scheduled Orders Name Type Priority Associated Diagnoses Orde r Schedule XR Cervical Spine 2-3 Views Imaging Routine Acute pain of right shoulder Expected: 07/21/2024, Expires: 07/21/2025 documented as of this encounter Procedures Procedure Name Priority Date/Time Associated Diagnosis Comments XR SHOULDER 2+ VIEWS RIGHT Routine 07/21/2024 10:30 AM EDT Acute pain of right shoulder documented in this encounter Results * XR Shoulder 2+ Views Right (07/21/2024 10:30 AM EDT) Anatomical Region Laterality Modality Upper Extremities, Shoulder Right Radi ographic Imaging 07/21/2024 10:3 0 AM EDT Narrative 07/21/2024 10:55 AM EDT ?[facility] ?[address] ?[place] [address] ?XRay Report ? Signed ? Patient: Jones,Lillian ?MR#: [id number] ?? [id number] ? : 2000 ?Acct:[id number] ? Age/Sex: 24 / F ?ADM Date: 07/21/24 ? Loc: HO.HHCX ? Attending Dr: Meena White DO ? Ordering Physician: Meena White DO ?? Date of Service: 07/21/24 ?? Procedure(s): XR shoulder RT min 2V ?? Accession Number(s): [id number] ? cc: Meena White DO ? EXAMINATION: [...] DD/ 1030 ? TD/TT: 07/21/24 1044 ? Coal Loader: ? Procedure Note Constantino, Image - 07/21/2024 [facility] [address] [place] [address] XRay Report Signed Patient: Lillian JonesMR#: [id number] : 2000Acct:[id number] Age/Sex: 24 / FADM Date: 07/21/24 Loc: HO.HHCX Attending Dr: Meena White DO Ordering Physician: Meena White DO Date of Service: 07/21/24 Procedure(s): XR shoulder RT min 2V Accession Number(s): [id number] cc: Meena White DO EXAMINATION: XR SHOULDER, [...] Myles Reed MD 07/21/2024 10:52 AM EDT Dictated By: Myles Reed MD Signed By: <Electronically signed by Myles Reed MD in OV> 07/21/24 1052 DD/ 1030 TD/TT: 07/21/24 1044 Coal Loader: us Meena White DO IMG XR PROCEDURES Final Resu lt documented in this encounter Visit Diagnoses Diagnosis Acute pain of right shoulder- Primary Healthcare maintenance documented in this encounter Additional Health Concerns Assessment Noted Time PHQ-9 Depression Total Score: 0 05/20/19 25 9:18 AM EST documented as of this encounter Care Teams Insurance Adjustor Relationship Specialty Start Date End Date Meena White DO [address] [place] [address] PCP - General Family Medicine 05/20/24 [employer] Fab[employer]ator 03/23/24 documented as of this encounter
== END 2024-07-21 10:29 | disposition home or self-care (01) ==
LOC: HO.HHCX 10:28
PROVIDERS: Visit Provider Family Medicine
DX: M25.511 Pain in right shoulder (principal); M54.2 Cervicalgia
CPT/HCPCS: 72040; 73030

== ENCOUNTER → 2024-07-21 10:30 | Outpatient (BNV) | payer MEDICAID, SELFPAY | PROVIDERS: Visit Provider Radiology Diagnostic Radiology | DX: M54.2 Cervicalgia (principal); M25.511 Pain in right shoulder | CPT/HCPCS: 72040; 73030 ==

== ENCOUNTER 2024-12-07 12:26 | Outpatient (REF) | payer MEDICAID, SELFPAY ==
--- OUTSIDE RECORDS SUMMARY | 2024-12-05 12:00 | XMS_ITS | Encounter Summary ---
Author Organization [employer] Address [address] 7[address] [place] [address] Care Team Providers Care Environmental Studies Faculty Member Name Role Phone ZurdoMeena mayberry Primary Care Provider + [phone] Encounter Details Date Type Department Care Team ([facility] st Contact Info) Description 12/05/2024 12:00 PM EDT Office Visit [facility] [address] [place] [address] Ritchie Martel MD [address] [place] [address] Closed nondisplaced fracture of left patella, unspecified fracture morphology, initial encounter (Primary Dx) Social History Tobacco Use Types Packs/Day Years [...] Sign Reading Time Taken Comments Blood Pressure 120/80 12/05/2024 10:39 AM EDT Pulse 86 12/05/2024 10:39 AM EDT Temperature 36.1 C (97 F) 12/05/2024 10:39 AM EDT Respiratory Rate 16 12/05/2024 10:39 AM EDT Oxygen Saturation 98% 12/05/2024 10:39 AM EDT Inhaled Oxygen Concentration - - Weight 64.9 kg (143 lb) 12/05/2024 10:39 AM EDT Height - - Body Mass Index 23.08 07/21/2024 10:00 AM EDT documented in this encounter Progress Notes * Ritchie Martel MD - 12/05/2024 12:00 PM EDT Subjective History was provided by the patient. Lillian Jones is a 24 y.o. female who presents for evaluation of left knee pain. Patient sustained left patellar fracture about 1 month ago while traveling overseas ([place] Was wearing a knee brace for 1 month. Took it off few days ago. Now with some pain. Denies any re-injury. Pain is mostly in the lateral knee area with full extension/flexion. No calf tenderness. No point tenderness at the patellar area. Denies any change of being . Recently gave . Has not been sexually active since. Objective Vitals: 12/05/24 1039 BP: 120/80 BP Location: Left arm Patient Position: Sitting BP Cuff Size: Adult Pulse: 86 Resp: 16 Temp: 97 ??F (36.1 ??C) TempSrc: Temporal SpO2: 98% Weight: 143 lb (64.9 kg) Physical Exam Constitutional: General: She is not in acute distress. Appearance: Normal appearance. She is not ill-appearing, toxic-appearing or diaphoretic. HENT: Right Ear: External ear normal. Left Ear: External ear normal. Nose: Nose normal. Mouth/Throat: Mouth: Mucous membranes are moist. Pharynx: Oropharynx is clear. Eyes: Extraocular Movements: Extraocular movements intact. Conjunctiva/sclera: Conjunctivae normal. Pulmonary: Effort: Pulmonary effort is normal. Musculoskeletal: General: Tenderness (minimal left lateral knee tenderness) present. No swelling or deformity. Normal range of motion. Cervical back: Neck supple. Right lower leg: No edema. Left lower leg: No edema. Comments: Negative anterior/posterior drawer's; negative Winnie's; negative Dakota's; no varus/valgus instability; no significant effusion/edema Skin: General: Skin is warm and dry. Neurological: General: No focal deficit present. Mental Status: She is alert and oriented to person, place, and time. Gait: Gait normal. Psychiatric: Mood and Affect: Mood normal. Behavior: Behavior normal. Diagnoses and all orders for this visit: Closed nondisplaced fracture of left patella, unspecified fracture morphology, initial encounter (Primary) - XR Knee 4+ Views Left; Future - ibuprofen 400 MG tablet; Take 1 tablet (400 mg) by mouth every 8 (eight) hours if needed for moderate pain or fever. Patient presents to [facility] with left lateral knee pain with full flexion/extension Patient sustained left patellar fracture about 1 month ago while traveling overseas ([place]) Was wearing a knee brace for 1 month Took it off few days ago Denies any re-injury No point tenderness at the patellar area No ligament instability or meniscal signs Will check X-ray to assess healing/callus formation Recommended Ibuprofen prn Potential adverse effects of the medication reviewed Advised to contact the clinic if persistent or worsening symptoms Indications for UC/ER use reviewed documented in this encounter Plan of Treatment Not on file documented as of this encounter Procedures Procedure Name Priority Date/Time Associated Diagnosis Comments XR KNEE 4+ VIEWS LEFT Routine 12/07/2024 12:50 PM EDT Closed nondisplaced fracture of left patella, unspecified fracture morphology, initial encounter documented in this encounter Results * XR Knee 4+ Views Left (12/07/2024 12:50 PM EDT) Anatomical Region Laterality Modality Lower Extremities, Knee Left [facility] 12/07/2024 12:5 0 PM EDT Narrative 12/07/2024 12:59 PM EDT [address] [address] XRay Report Signed Patient: Lillian Jones MR#: [id number] : 2000 Acct:[id number] Age/Sex: 24 / F ADM Date: 12/07/24 Loc: HO.HHCX Attending Dr: Ritchie Martel MD Ordering Physician: Ritchie Martel MD Date of Service: 12/07/24 Procedure(s): XR knee LT 4V Accession Number(s): [id number] cc: Meena White DO; Ritchie Martel MD Reason for Exam: pain EXAMINATION: XR KNEE, LEFT CLINICAL INFORMATION: pain COMPARISON: None available. TECHNIQUE: Four views of the left knee. FINDINGS: Joint spaces are preserved. There are no marginal osteophytes. There is a joint effusion. No fracture is evident. XR/XR knee LT 4V IMPRESSION: Joint effusion, otherwise unremarkable left knee. Electronically signed by: Markel Rivera MD 12/07/2024 12:56 PM EDT Dictated By: Markel Rivera MD Signed By: <Electronically signed by Markel Rivera MD in OV> 12/07/24 1256 DD/ 1250 TD/TT: 12/07/24 1252 Novelty Chain Maker: Procedure Note Donotuseinterpreter, Image - 12/07/2024 [facility] [address] [place] [address] XRay Report Signed Patient: Lillian JonesMR#: [id number] : 2000Acct:[id number] Age/Sex: 24 / FADM Date: 12/07/24 Loc: HO.HHX Attending Dr: Ritchie Martel MD Ordering Physician: Ritchie Martel MD Date of Service: 12/07/24 Procedure(s): XR knee LT 4V Accession Number(s): [id number] cc: Meena White DO; Ritchie Martel MD Reason for Exam: pain EXAMINATION: XR KNEE, LEFT CLINICAL INFORMATION: pain COMPARISON: None available. TECHNIQUE: Four views of the left knee. FINDINGS: Joint spaces are preserved. There are no marginal osteophytes. There is a joint effusion. No fracture is evident. XR/XR knee LT 4V IMPRESSION: Joint effusion, otherwise unremarkable left knee. Electronically signed by: Markel Rivera MD 12/07/2024 12:56 PM EDT Dictated By: Markel Rivera MD Signed By: <Electronically signed by Markel Rivera MD in OV> 12/07/24 1256 DD/ 1250 TD/TT: 12/07/24 1252 Novelty Chain Maker: Ritchie Martel MD IMG XR PROCEDURES Final Result documented in this encounter Visit Diagnoses Diagnosis Closed nondisplaced fracture of left patella, unspecified fracture morphology, initial encounter- Primary documented in this encounter Additional Health Concerns Assessment Noted Time PHQ-9 Depression Total Score: 0 05/20/19 9:18 AM EST documented as of this encounter Care Teams Environmental Studies Faculty Member Relationship Specialty Start Date End Date Meena White DO [address] [place] [address] PCP - General Family Medicine 05/20/24 documented as of this encounter
--- NOTE | ~2024-12-07 | XR_ITS ---
EXAMINATION: XR KNEE, LEFT CLINICAL INFORMATION: pain COMPARISON: None available. TECHNIQUE: Four views of the left knee. FINDINGS: Joint spaces are preserved. There are no marginal osteophytes. There is a joint effusion. No fracture is evident. XR/XR knee LT 4V IMPRESSION: Joint effusion, otherwise unremarkable left knee. Electronically signed by: Markel Rivera MD 12/07/2024 12:56 PM EDT
--- OUTSIDE RECORDS SUMMARY | 2024-12-07 17:09 | XMS_ITS | Encounter Summary ---
Author Organization [employer] Address [address] [address] 7[address] [place] [address] Care Team Providers Care Senior Security Analyst Name Role Phone ZurdoMeena mayberry Primary Care Provider + [phone] Encounter Details Date Type Department Care Team ([facility] st Contact Info) Description 12/07/2024 Results Follow-Up [facility] [address] [place] [address] Ritchie Martel MD [address] [place] [address] XR Knee 4+ Views Left Social History Tobacco Use Types Packs/Day Years [...] documented as of this encounter Care Teams Senior Security Analyst Relationship Specialty Start Date End Date Meena White DO [address] [place] [address] PCP - General Family Medicine 05/20/24 documented as of this encounter
--- OUTSIDE RECORDS SUMMARY | 2024-12-07 17:09 | XMS_ITS | Encounter Summary ---
Author Organization [employer] Address [address] [facility] [address] 7[address] [place] [address] Care Team Providers Care Collision Worker Name Role Phone ZurdoMeena mayberry Primary Care Provider + [phone] Encounter Details Date Type Department Care Team ([facility] st Contact Info) Description 06/16/2024 Orders Only [facility] [address] [place], [place] [id number] ProviderBolivar MD Social History Tobacco Use Types [...] documented as of this encounter Care Teams Collision Worker Relationship Specialty Start Date End Date Meena White DO [address] [place] [id number] PCP - General Family Medicine 05/20/24 documented as of this encounter
--- OUTSIDE RECORDS SUMMARY | 2024-12-07 17:09 | XMS_ITS | Encounter Summary ---
Author Organization [employer] Address [address] [facility] 7[address] [place] [address] Care Team Providers Care Bottom Wheeler Name Role Phone Meena White DO Primary Care Provider + [phone] Encounter Details Date Type Department Care Team (Latest Contact Info) Description 12/05/2024 Travel Social History Tobacco Use Types Packs/Day [...] documented as of this encounter Care Teams Bottom Wheeler Relationship Specialty Start Date End Date Meena White DO [address] [place] [address] PCP - General Family Medicine 05/20/24 documented as of this encounter
--- OUTSIDE RECORDS SUMMARY | 2024-12-07 17:09 | XMS_ITS | Clinical Summary ---
Author Organization [facility] [address] [facility] Address [address] [place] [address] Phone Care Team Providers Care Research Program Intern Name Role Phone Physician, No Pcp Primary Care Provider Unavaila ble Allergies Active Allergy Reactions Criticality Noted Date Comments Shellfish Containing Products Anaphylaxis High 04/26/2022 Pt does not have an epi pen at moment. Medications glycerin-witch Mikayla 12.5-50 % pads Apply 1 each topically if needed for irritation. 5 Active vitamin iron fum-folic acid 28-0.8 mg per tablet Take 1 tablet by mouth 1 (one) time each day with breakfast. 90 tablet 3 5 06/03/19 26 Active ibuprofen (ADVIL,MOTRIN) 600 mg tablet TAKE 1 TABLET BY MOUTH EVERY 6 HOURS NEEDED FOR MILD OR MODERATE PAIN UP TO 10 DAYS 60 tablet 1 5 Active estradioL (ESTRACE) 0.01 % (0.1 mg/gram) vaginal cream Insert 0.1 g into the vagina at bedtime. Apply to affected area nightly for up to 30 days 42.5 g 5 Active Active Problems Problem Noted Date Diagnosed Date History of gestational hypertension 05/29/2024 Cervical high risk HPV (human papillomavirus) te st positive 12/16/2023 Overview (07/16/2024): Ip, nl pap, +hpv repeat routinely 07/13/24 Pap NIL neg HPV Heart murmur 07/22/2022 Resolved Problems Problem Noted Date Diagnosed Date Resolved Date Uterine contractions 05/29/2024 03/10/2 025 Intrapartum fever 05/29/2024 07/13/2024 Threatened labor at term 05/28/2024 39 weeks gestation of 05/28/2024 07/13/2024 Positive GBS test 03/20/2024 07/13/2024 Overview (03/20/2024): At 29wks flc Vaginal bleeding in 03/12/2024 07/13/2024 Insufficient care i n second trimester 03/10/2024 07/13/2024 Overview (03/10/2024): Has not been seen for 10wks 02/14/2024 07/13/2024 Overview (05/22/2024): 1. [place] site: [address] 2. Delivery site: [facility] 3. Mobile Mommas: NO 4. Dating criteria: [...] or Bottle feed: Breast E. Baby's name -Celani F. Circumcision - na 9. Hospital Course: Immunizations Name Administration Dates Next Due Hep [...] Record ed Within the last 3 months, ho w many times did you visit the emergency [...] care for your loved ones. For example, child and adolescent psychologist or elderly care for an older adult? [...] Anes PTL Jenn A1 A5 Name Clin 2024 Term 39w 2d 8h 14m 3h 50m/4h 19m/0h 05m 3000 g (105.8 oz) F Vag-S pont Epidur al N Livin g 8 8 Celani Hanna , WANDA Complications:Intraamniotic Infection,Avulsion of umbilical cord Delivery Location:[facility] ([facility]PL[facility]) Last Filed Vital Signs Vital Sign Reading Time Taken Comments Blood Pressure 110/71 07/13/2024 10:29 AM EDT Pulse 83 07/13/2024 10:29 AM EDT Temperature 36.5 C (97.7 F) 06/01/2024 8:22 AM EDT Respiratory Rate 12 07/13/2024 10:29 AM EDT [...] DTaP,Tdap,and Td Vaccines (1 - Tdap) 2017 Cholesterol Screening (Lipid Panel) 01/07/2024 Depression Screening 03/25/2024 COVID-19 Vaccine (1 - season) 2024 Influenza Vaccine (#1) 2024 Hypertension/CHF/CAD Annual BMP Blood Test 05/29/2025 05/29/2024 [...] 5 Years) and At-Risk Patients (6 to 49 Years) Aged Out No longer eligible based on patient's age to complete this topic RSV Immunization Patients Under 20 months Aged Out No longer eligible based on patient's age to complete this topic Varicella Vaccines Aged Out No longer eligible based on patient's age to complete this topic Procedures Procedure Name Priority Date/Time Associated Diagnosis Comments HPV WITH REFLEX GENOTYPE Routine 07/13/2024 10:56 AM EDT Cervical high risk HPV (human papillomavirus) test positive CREATININE, SERUM STAT 05/29/2024 9:0 2 PM EST HEPATITIS C SCREENING Routine 11/22/2023 HIV SCREENING Routine 11/22/2023 from Last 3 Months or Most Recently Relevant to Health Maintenance Results * HPV with reflex genotype (07/13/2024 10:56 AM EDT) [facility] HPV Negative Negative LAB MICROBIOLOGY METHOD 07/14/2024 1:51 PM EDT [facility] Brushing/Spatula Cervix uteri structure / Unknown 07/13/2024 10:56 AM EDT 07/14/2024 6:07 AM EDT Radhika SANTIAGO LAB MOLECULAR DIAGNOSTICS O RDERABLES Final Result [facility] [address] [place] [address], * Creatinine (05/29/2024 9:02 PM EST) [facility] Creatinine 0.77 0.50 - 1.10 mg/dL LAB CHEMISTRY METHOD 05/29/2024 9:37 PM EST [facility] eGFR 110 >=60 mL/min/1. 73m2 LAB CHEMISTRY METHOD 05/29/2024 9:37 PM EST [facility] Comment:Calculation based on the Chronic Kidney Disease Epidemiology Collaboration (CKD-EPI) equation refit without adjustment for race. Blood Venous blood specimen / Unknown Venipuncture / Unknown 05/29/2024 9:02 PM EST 05/29/2024 9:06 PM EST Marlene SANTIAGO LAB BLOOD ORDERABLES Final Resu lt [facility] [address] [place] [address], [place] [phone] * HIV Screening (11/22/2023) Pathologist [facility] HIV Screening Abstracted Historical Provider HEALTH MAINTENANCE Final Result * Hepatitis C Screening (11/22/2023) HM Hepatitis C Screening Abstracted us Historical Provider [...] currently active code status orders. Care Teams Research Program Intern Relationship Specialty Start Date End Date Physician, No Pcp PCP - General 02/26/24
--- OUTSIDE RECORDS SUMMARY | 2024-12-07 17:09 | XMS_ITS | Clinical Summary ---
Author Organization [email or web address] Address [address] [place] [address] Care Team Providers Care Teacher Of [employer] Name Role Phone ZurdoMeena mayberry Primary Care Provider + [phone] Allergies Active Allergy Reactions Criticality Noted Date Comments Shellfish-Derived Products Anaphylaxis High 04/26/2022 Pt does not have an epi pen at moment. Medications EPINEPHrine (Epipen) 0.3 MG/0.3ML injection syringe Inject 0.3 mL (0.3 mg) as directed 1 (one) time for 1 dose. use as directed for allergic reaction and then call 911 1 each 3 5 Active multivitamin () 27-0.8 MG tablet Take 1 tablet by mouth Once per day. 90 tablet 3 5 07/22/19 26 Active naproxen (Naprosyn) 500 MG tablet Take 1 tablet (500 mg) by mouth if needed in the morning and at bedtime for mild pain. 40 tablet 1 5 07/22/19 26 Active Diclofenac Sodium 1 % gel Apply 2 g topically if needed in the morning, at noon, in the evening, and at bedtime (pain). 150 g 3 5 Active ibuprofen 400 MG tabletIndications :Closed nondisplaced fracture of left patella, unspecified fracture morphology, initial encounter Take 1 tablet (400 mg) by mouth every 8 (eight) hours if needed for moderate pain or fever. 30 tablet 5 01/05/20 25 Active Active Problems Problem Noted Date Diagnosed Date Cervical high risk HPV (human papillomavirus) te st positive 12/16/2023 Overview (05/20/2024): Ip, nl pap, +hpv repeat routinely Resolved Problems Problem Noted Date Diagnosed Date Resolved Date 02/14/2024 07/21/2024 Overview (05/20/2024): 1. [facility] site: [address] 2. Delivery site: [facility] 3. Mobile Mommas: 4. Dating criteria: [...] open B. Labor support identified - Maureen C. Tdap - Date: declined, Flu - Date: declined D. Breast or Bottle feed: Breast E. Baby's name - F. Circumcision - na 9. Hospital Course: Encounters Date Type Department Care Team Description 12/07/2024 Results Follow-Up [facility] [address] [place], [place] [id number] Ritchie Martel MD XR Knee 4+ Views Left 12/05/2024 12:00 PM EDT Office Visit [facility] [address] [place] [address] [id number] Ritchie Martel MD Closed nondisplaced fracture of left patella, unspecified fracture morphology, initial encounter (Primary Dx) 12/05/2024 Travel 11/04/[address] [id number] Meena White DO Care Management (C3TC #4-case closed) 10/14/[address] [phone] Meena White DO Care Management (C3 TC #3-unable to lvm) 09/14/[address] [phone] Meena White DO Care Management (C3 TC #2-unable to lvm) from Last 3 Months Immunizations Immunization Administration Dates Next Due Hep B, Unspecified [...] (143 lb) 12/05/2024 10:39 AM EDT Height 167.6 cm (5' 6 ) 07/21/2024 10:00 AM EDT Body Mass Index 23.08 07/21/2024 10:00 AM EDT Plan of Treatment Health Maintenance Due Date Last Done Comments HIV Screening 1998 Lipid Panel 1998 Hepatitis B Vaccines (2 of 3 - 3-dose series) 1998 1998 Family Planning (PISQ) 2013 HPV Vaccines (1 - 3-dose series) 2013 Hepatitis C Screening 2016 DTaP/Tdap/Td Vaccines (1 - Tdap) 2017 COVID-19 Vaccine ( - 2023-2 5 season) 2024 Influenza Vaccine (#1) 2024 HPV/Cotest 12/02/2024 Pap Smear 12/02/2024 12/03/2023 SDOH Screening 03/13/2025 03/13/2024 Alcohol/Substance Use Screening 05/20/2025 05/20/2024 Depression Screening 05/20/2025 05/20/2024, 05/20/2024 Disability Screening 07/21/2025 07/21/2024 Tobacco Screening 07/22/2025 07/22/2024 Zoster Vaccines (1 of 2) 2048 RSV [...] Years) and At-Risk Patients (6 to 49) Years Aged Out No longer eligible b ased [...] left patella, unspecified fracture morphology, initial encounter HM PAP/HPV Routine 12/03/2023 3:47 PM EDT from Last 3 Months or Most Recently Relevant to Health Maintenance Results * XR Knee 4+ Views Left (12/07/2024 12:50 PM EDT) Anatomical Region Laterality Modality Lower Extremities, Knee Left Radiogra phic Imaging 12/07/2024 12:5 0 PM EDT Narrative 12/07/2024 12:59 PM EDT [address] [address] XRay Report Signed Patient: Lillian Jones MR#: [id number] : 2000 Acct:[id number] Age/Sex: 24 / F ADM Date: 12/07/24 Loc: [facility] Attending Dr: Ritchie Martel MD Ordering Physician: Ritchie Martel MD Date of Service: 12/07/24 Procedure(s): XR knee LT 4V Accession Number(s): [id number] cc: Meena White DO; Ritchie Martel MD [...] 12/07/24 1256 DD/ 1250 TD/TT: 12/07/24 1252 Odd Job Worker: Procedure Note Donotjose armandoter, Image - 12/07/[address] [address] XRay Report Signed Patient: Lillian JonesMR#: [id number] : 2000Acct:[id number] Age/Sex: 24 / FADM Date: 12/07/24 [facility] Dr: Ritchie Martel MD Ordering Physician: Ritchie Martel MD Date of Service: 12/07/24 Procedure(s): XR knee LT 4V Accession Number(s): [id number] cc: Meena White DO; Ritchie Martel MD [...] Markel Rivera MD 12/07/2024 12:56 PM EDT RP Dictated By: Markel Rivera MD Signed By: <Electronically signed by Markel Rivera MD in OV> 12/07/24 1256 DD/ 1250 TD/TT: 12/07/24 1252 Odd Job Worker: Ritchie Martel MD IMG XR PROCEDURES Final Result * HM PAP/HPV (12/03/2023 3:47 PM EDT) Historical Provider HEALTH MAINTENANCE Final Result from Last 3 Months or Most Recently Relevant to Health Maintenance Insurance [facility] Member Subscriber Plan / Payer (Ef fective 2023-Present) Name:Lillian Jones Relation to Subscriber:Self Name:Jones, Lillian Payer ID:Not on file Group ID:Not on file Type:Medicaid Address: [address] [place], [place] Care Teams Teacher Of [employer] Relationship Specialty Start Date End Date Meena White DO [address] [place] [address] PCP - General Family Medicine 05/20/24
== END 2024-12-07 12:27 | disposition home or self-care (01) ==
LOC: HO.HHCX 12:26
PROVIDERS: PCP Family Medicine; Visit Provider Family Medicine
DX: S82.002A Unspecified fracture of left patella, initial encounter for closed fracture (principal)
CPT/HCPCS: 73564

== ENCOUNTER → 2024-12-07 12:31 | Outpatient (BNV) | payer MEDICAID, SELFPAY | PROVIDERS: PCP Family Medicine; Visit Provider Radiology Diagnostic Radiology | DX: M25.462 Effusion, left knee (principal) | CPT/HCPCS: 73564 ==